=== PATIENT | female | born 1935 | race Caucasian/White ===

== ENCOUNTER 2018-02-20 15:44 | Inpatient (IN) | payer MEDICARE, OTHER ==
[~2018-02-20] VITALS: Ht 162.6 cm; Wt 59.5 kg
[2018-02-20 15:46] VITALS: BP 134/62
[2018-02-20] MEDS ORDERED: Solu-MEDROL 125mg Inj IVP ONE (16:00)
[2018-02-20] MEDS ORDERED: Albuterol ud Inhalation HHN ONE (16:00)
[2018-02-20] MEDS ORDERED: cefTRIAXone 1 GM in NS 55 ML IVPB ONE (16:00)
[2018-02-20] MEDS ORDERED: Nitroglycerin 2% oint pkt TOPIC ONE (16:15)
--- NOTE | 2018-02-20 16:21 | Diagnostic Imaging Report ---
Indication: Dyspnea Comparison: None A single view chest radiograph was obtained. Findings: Vascular prominence demonstrated bilaterally with interstitial densities likely edema. Heart is enlarged. Sternotomy noted and osteopenia noted. Top of IVC filter noted. IMPRESSION: Suspected congestive heart failure.
[2018-02-20 16:49] LABS: ANION GAP 6 mmol/L (5-15); BLOOD UREA NITROGEN 15 mg/dL (7-18); CALCIUM 8.2 MG/DL (8.5-10.1); CARBON DIOXIDE 28 MMOL/L (21-32); CHLORIDE 95 MMOL/L (98-107); CREATININE 0.8 MG/DL (0.55-1.30); SODIUM 129 MMOL/L (136-145)
[2018-02-20] MEDS ORDERED: SERTRALINE HCL25 MG GT (16:51)
[2018-02-20] MEDS ORDERED: FERROUS SU220 MG/53 GT ×2 (16:51→17:56)
[2018-02-20] MEDS ORDERED: COUMADIN1 MG GT (16:51)
[2018-02-20] MEDS ORDERED: MULTIVITAMINS1 EAC2 GT (16:51)
[2018-02-20] MEDS ORDERED: CRESTOR10 M2 GT (16:51)
[2018-02-20] MEDS ORDERED: BISACODYL5 MG RC (16:51)
[2018-02-20] MEDS ORDERED: SENNA8.6 M2 GT ×2 (16:51→17:56)
[2018-02-20] MEDS ORDERED: OMEPRAZOLE40 M1 GT (16:51)
[2018-02-20] MEDS ORDERED: KEPPRA500 M4 GT (16:51)
[2018-02-20] MEDS ORDERED: DOCUSATE SODIU100 MG GT ×2 (16:51→17:56)
[2018-02-20 16:54] LABS: ALANINE AMINOTRANSFERASE 38 U/L (12-78); ALBUMIN 2.9 G/DL (3.4-5.0); ALBUMIN/GLOBULIN RATIO 0.7 (1.0-2.7); ALKALINE PHOSPHATASE 142 U/L (46-116); ASPARTATE AMINO TRANSFERASE 42 U/L (15-37); BILIRUBIN,TOTAL 0.5 MG/DL (0.2-1.0)
[2018-02-20 17:00] VITALS: BP 101/44
[2018-02-20 17:14] LABS: BASOPHILS % (AUTO) 0.2 % (0.0-2.0); HEMATOCRIT 36.1 % (37.0-47.0); HEMOGLOBIN 12.5 G/DL (12.0-16.0); LYMPHOCYTES % (AUTO) 37.9 % (20.0-45.0); MEAN CORPUSCULAR VOLUME 89 FL (80-99); MONOCYTES % (AUTO) 6.8 % (1.0-10.0); PLATELET COUNT 115 K/UL (150-450); RED BLOOD COUNT 4.07 M/UL (4.20-5.40); RED CELL DISTRIBUTION WIDTH 12.7 % (11.6-14.8); WHITE BLOOD COUNT 8.1 K/UL (4.8-10.8)
--- NOTE | 2018-02-20 17:15 | Emergency Room Report ---
History of Present Illness General Chief Complaint: Upper Respiratory Illness Source: Medical Record, EMS Present Illness HPI Patient [facility] in from a [facility] facility for shortness of breath. EMS report that she has had congestion and wheezing. Per EMS evaluation she had wheezing on exam and she was given albuterol nebulizer treatment. The patient is nonverbal at baseline. The patient has a history of seizure disorder. There is no other history available. Allergies: Coded Allergies: No Known Allergies (Unverified , 02/20/18) Patient History Past Medical History: see triage record, HTN, SC, CAD, CHF, COPD, GERD, dementia, seizures Social History: Denies: smoking, alcohol use, drug use Reviewed Nursing Documentation: PMH: Agreed; PSxH: Agreed Nursing Documentation-PMH Past Medical History: No History, Except For Hx Cardiac Problems: Yes - AFIB Review of Systems All Other Systems: limited Physical Exam Vital Signs Date Time Temp Pulse Resp B/P (MAP) Pulse Ox O2 Delivery O2 Flow Rate FiO2 02/20/18 15:36 80 20 134/62 99 T-piece 6.0 02/20/18 16:36 50 Sp02 EP Interpretation: reviewed, normal General Appearance: no apparent distress, alert, GCS 15, non-toxic Head: normocephalic, atraumatic Eyes: bilateral eye normal inspection, bilateral eye PERRL ENT: hearing grossly normal, normal pharynx, no angioedema, normal voice Neck: full range of motion, supple/symm/no masses Respiratory: chest non-tender, wheezing, expiration Cardiovascular #1: regular rate, rhythm, no edema, systolic murmur Gastrointestinal: normal bowel sounds, non tender, soft, non-distended, no guarding, no rebound Rectal: deferred Musculoskeletal: swelling Neurologic: responsive, other - At baseline Psychiatric: mood/affect normal Skin: warm/dry, well hydrated, other - See RN skin exam Medical Decision Making Diagnostic Impression: Primary Impression: CHF (congestive heart failure) Additional Impressions: Fever Pulmonary edema Bronchospasm Hyponatremia Influenza B ER Course The patient presents with shortness of breath. She is also wheezing. Initially on arrival he treated her as a COPD exacerbation with albuterol, steroids and broad-spectrum antibiotics. Chest x-ray showed findings consistent with pulmonary edema. I was concerned that this patient would decompensate, so she was placed on BiPAP. The patient is DO NOT RESUSCITATE but with selective interventions to include noninvasive ventilation. She is also found to have hyponatremia and influenza. She did have a fever. Given the patient's age and chronic medical conditions, this patient's prognosis is very poor. This patient is critically ill. This patient required complex medical decision- making, aggressive intervention, extensive laboratory workup and monitoring. Critical care time: 40 minutes. Laboratory Tests Test 02/20/18 16:00 02/20/18 16:20 Prothrombin Time Pending Prothrombin Time INR Pending PTT Pending Sodium Level 129 MMOL/L (136-145) L Potassium Level 4.0 MMOL/L (3.5-5.1) Chloride Level 95 MMOL/L (98-107) L Carbon Dioxide Level 28 MMOL/L (21-32) Anion Gap 6 mmol/L (5-15) Blood Urea Nitrogen 15 mg/dL (7-18) Creatinine 0.8 MG/DL (0.55-1.30) Estimate Glomerular Filtration Rate mL/min (>60) Glucose Level 116 MG/DL (74-106) H Calcium Level 8.2 MG/DL (8.5-10.1) L Total Bilirubin 0.5 MG/DL (0.2-1.0) Aspartate Amino Transferase (AST) 42 U/L (15-37) H Alanine Aminotransferase (ALT) 38 U/L (12-78) Alkaline Phosphatase 142 U/L (46-116) H Troponin I 0.032 ng/mL (0.000-0.056) Pro-B-Type Natriuretic Peptide 5049 pg/mL (0-125) H Total Protein 7.0 G/DL (6.4-8.2) Albumin 2.9 G/DL (3.4-5.0) L Globulin 4.1 g/dL Albumin/Globulin Ratio 0.7 (1.0-2.7) L White Blood Count 8.1 K/UL (4.8-10.8) Red Blood Count 4.07 M/UL (4.20-5.40) L Hemoglobin 12.5 G/DL (12.0-16.0) Hematocrit 36.1 % (37.0-47.0) L Mean Corpuscular Volume 89 FL (80-99) Mean Corpuscular Hemoglobin 30.6 PG (27.0-31.0) Mean Corpuscular Hemoglobin Concent 34.5 G/DL (32.0-36.0) Red Cell Distribution Width 12.7 % (11.6-14.8) Platelet Count 115 K/UL (150-450) L Mean Platelet Volume 8.8 FL (6.5-10.1) Neutrophils (%) (Auto) 55.0 % (45.0-75.0) Lymphocytes (%) (Auto) 37.9 % (20.0-45.0) Monocytes (%) (Auto) 6.8 % (1.0-10.0) Eosinophils (%) (Auto) 0.0 % (0.0-3.0) Basophils (%) (Auto) 0.2 % (0.0-2.0) Urine Color Yellow Urine Appearance Clear Urine pH 6 (4.5-8.0) Urine Specific [place] 1.020 (1.005-1.035) Urine Protein 3+ (NEGATIVE) H Urine Glucose (UA) Negative (NEGATIVE) Urine Ketones Negative (NEGATIVE) Urine Occult Blood 2+ (NEGATIVE) H Urine Nitrite Negative (NEGATIVE) Urine Bilirubin Negative (NEGATIVE) Urine Urobilinogen 1 MG/DL (0.0-1.0) H Urine Leukocyte Esterase 1+ (NEGATIVE) H Urine RBC 5-10 /HPF (0 - 2) H Urine WBC 2-4 /HPF (0 - 2) Urine Squamous Epithelial Cells Few /LPF (NONE/OCC) Urine Amorphous Sediment Moderate /LPF (NONE) H Urine Bacteria Few /HPF (NONE) Microbiology Date/Time Source Procedure Growth Status 02/20/18 16:15 Nasal Nares Influenza Types A,B Antigen (EMMA) - Final Complete EKG Diagnostic Results Rate: tachycardiac Rhythm: other - S.tach ST Segments: other - NSST Rhythm Strip Diag. Results EP Interpretation: yes Rate: 100's Rhythm: NSR, no PVC's, no ectopy Chest X-Ray Diagnostic Results Chest X-Ray Diagnostic Results : Chest X-Ray Ordered: Yes # of Views/Limited/Complete: 1 View Indication: Shortness of Breath EP Interpretation: Yes Interpretation: other - Diffuse patchy opacities. Last Vital Signs Date Time Temp Pulse Resp B/P (MAP) Pulse Ox O2 Delivery O2 Flow Rate FiO2 02/20/18 17:02 134/62 02/20/18 16:43 15.0 50 02/20/18 16:36 113 20 100 Facial Disposition: ADMITTED INPATIENT Condition: Critical KYA BLACKWELL D.O. February 20, 2018 17:15
[2018-02-20 17:19] LABS: APPEARANCE,URINE CLEAR; BILIRUBIN, URINE NEGATIVE (NEGATIVE); GLUCOSE, URINE (UA) NEGATIVE (NEGATIVE); KETONES,URINE NEGATIVE (NEGATIVE); LEUKOCYTE ESTERASE ,URINE 1+ (NEGATIVE); NITRITE,URINE NEGATIVE (NEGATIVE); PH,URINE 6 (4.5-8.0); PROTEIN,URINE 3+ (NEGATIVE); UROBILINOGEN,URINE 1 MG/DL (0.0-1.0)
[2018-02-20 17:22] LABS: COLOR,URINE YELLOW
[2018-02-20] MEDS ORDERED: MULTIVITAMINS1 EAC8 ORAL (17:49)
[2018-02-20] MEDS ORDERED: MULTIVITAMINS1 EAC8 GT (17:50)
[2018-02-20] MEDS ORDERED: CULTURELLE1 EACH GT (17:56)
[2018-02-20] MEDS ORDERED: LEVETIRACE100 MG/1 M GT ×2 (17:59)
[2018-02-20] MEDS ORDERED: ARTIFICIAL TEAR15 ML BOTH EYES (18:04)
[2018-02-20] MEDS ORDERED: NORCO 5-325 TA1 EACH GT (18:04)
[2018-02-20] MEDS ORDERED: GUAIFENESI100 MG/5 M GT (18:04)
[2018-02-20] MEDS ORDERED: DULCOLAX10 MG RC (18:04)
[2018-02-20 18:43] VITALS: BP 101/49
--- NOTE | 2018-02-20 19:27 | Pulmonolgy Critical Care Note ---
Critical Care - Asmt/Plan Problems: (1) Gastrostomy tube in place (2) CVA (cerebral vascular accident) (3) Atrial fibrillation (4) Acute decompensated heart failure (5) Bronchospasm (6) Influenza B (7) Respiratory failure (8) Protein calorie malnutrition (9) Hyponatremia (10) UTI (urinary tract infection) Assessment/Plan: -ABG -Optimize pulmonary hygiene/mobilize as tolerated -PRN BiPAP, attempt to wean off -Titrate down FiO2 to keep SaO2 > 90% -RTC and PRN HHN's -Zosyn (D1), Tamiflu (D1) -F/U Cx's -Monitor volumes -Diuresis as able -F/U TTE -Hold TF's -Continue A/C -DNAR/DNI, BiPAP ok Respiratory: monitor respiratory rate, adjust FIO2, ABG, other - Continue BiPAP , attempt to wean off, RTC and PRN HHN's, optimize pulmonary hygiene/mobilzie as toelrated Cardiac: continue to monitor HR/BP, other - TTE, diurese as able Renal: F/U I&O, check electrolytes, other - Diurese as able Infectious Disease: continue antibiotics - expand to Zosyn, continue Tamiflue Gastrointestinal: hold feedings Endocrine: monitor blood sugar Hematologic: monitor H/H Neurologic: keep patient comfortable Prophylaxis: Protonix, other - Coumading Disposition: keep in ICU - TOMMY Time Spent (Minutes): 60 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, 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 Discussed with: consultants, other - DNAR/DNI Critical Care - Objective Last 24 Hour Vital Signs Date Time Temp Pulse Resp B/P (MAP) Pulse Ox O2 Delivery O2 Flow Rate FiO2 02/20/18 18:43 100.9 102 18 101/49 100 Bi-pap 15.0 50 100.9 02/20/18 17:02 134/62 02/20/18 17:00 100.2 109 28 101/44 100 Bi-pap 15.0 50 100.2 02/20/18 16:43 15.0 50 02/20/18 16:36 113 20 100 Facial 50 02/20/18 16:24 109 24 100 Nasal Cannula 4.0 02/20/18 16:12 99 19 100 Simple Mask 6.0 02/20/18 16:10 99 19 Simple Mask 6.0 02/20/18 15:46 20 134/62 99 Simple Mask 6.0 02/20/18 15:46 80 20 Simple Mask 6.0 02/20/18 15:36 80 20 134/62 99 T-piece 6.0 Status: obtunded, other - on BiPAP Condition: critical HEENT: atraumatic, normocephalic Lungs: rales - BiB, rhonchi - scattered Heart: HR/BP stable Abdomen: soft, non-tender, active bowel sounds, feeding tube Extremities: edema - 1+, cyanosis - no, clubbing - no Micro: Microbiology Date/Time Source Procedure Growth Status 02/20/18 16:15 Nasal Nares Influenza Types A,B Antigen (EMMA) - Final Complete Critical Care - Subjective ROS Limited/Unobtainable: Yes ICU Day: 1 Intubation Day: N/A on BiPAP Interval Events: 82 F NHR h/o CVA, AF on coumadin, dysphagia S/P GT, Sz DO Tx'd from SNF with respiratory failure, progressive hypoxemic, now on 15L NRBFM, wheezing, SOB, + FLU B, + cough She recieved Tamifly and CTx in the ER. Condition: critical IV Access: peripheral EKG Rhythm: Atrial Fibrillation FI02: 50 Vent Support Mode: BiLevel Sputum Amount: None Subjective: GRACIE CXR: Scattered b opacities and PVC Labs: Laboratory Tests Test 02/20/18 16:00 02/20/18 16:20 Prothrombin Time Pending Prothromb Time International Ratio Pending Activated Partial Thromboplast Time Pending Sodium Level 129 MMOL/L (136-145) L Potassium Level 4.0 MMOL/L (3.5-5.1) Chloride Level 95 MMOL/L (98-107) L Carbon Dioxide Level 28 MMOL/L (21-32) Anion Gap 6 mmol/L (5-15) Blood Urea Nitrogen 15 mg/dL (7-18) Creatinine 0.8 MG/DL (0.55-1.30) Estimat Glomerular Filtration Rate mL/min (>60) Glucose Level 116 MG/DL (74-106) H Calcium Level 8.2 MG/DL (8.5-10.1) L Total Bilirubin 0.5 MG/DL (0.2-1.0) Aspartate Amino Transf (AST/SGOT) 42 U/L (15-37) H Alanine Aminotransferase (ALT/SGPT) 38 U/L (12-78) Alkaline Phosphatase 142 U/L (46-116) H Troponin I Pending Pro-B-Type Natriuretic Peptide 5049 pg/mL (0-125) H Total Protein 7.0 G/DL (6.4-8.2) Albumin 2.9 G/DL (3.4-5.0) L Globulin 4.1 g/dL Albumin/Globulin Ratio 0.7 (1.0-2.7) L White Blood Count 8.1 K/UL (4.8-10.8) Red Blood Count 4.07 M/UL (4.20-5.40) L Hemoglobin 12.5 G/DL (12.0-16.0) Hematocrit 36.1 % (37.0-47.0) L Mean Corpuscular Volume 89 FL (80-99) Mean Corpuscular Hemoglobin 30.6 PG (27.0-31.0) Mean Corpuscular Hemoglobin Concent 34.5 G/DL (32.0-36.0) Red Cell Distribution Width 12.7 % (11.6-14.8) Platelet Count 115 K/UL (150-450) L Mean Platelet Volume 8.8 FL (6.5-10.1) Neutrophils (%) (Auto) 55.0 % (45.0-75.0) Lymphocytes (%) (Auto) 37.9 % (20.0-45.0) Monocytes (%) (Auto) 6.8 % (1.0-10.0) Eosinophils (%) (Auto) 0.0 % (0.0-3.0) Basophils (%) (Auto) 0.2 % (0.0-2.0) Urine Color Yellow Urine Appearance Clear Urine pH 6 (4.5-8.0) Urine Specific [place] 1.020 (1.005-1.035) Urine Protein 3+ (NEGATIVE) H Urine Glucose (UA) Negative (NEGATIVE) Urine Ketones Negative (NEGATIVE) Urine Occult Blood 2+ (NEGATIVE) H Urine Nitrite Negative (NEGATIVE) Urine Bilirubin Negative (NEGATIVE) Urine Urobilinogen 1 MG/DL (0.0-1.0) H Urine Leukocyte Esterase 1+ (NEGATIVE) H Urine RBC 5-10 /HPF (0 - 2) H Urine WBC 2-4 /HPF (0 - 2) Urine Squamous Epithelial Cells Few /LPF (NONE/OCC) Urine Amorphous Sediment Moderate /LPF (NONE) H Urine Bacteria Few /HPF (NONE) NAEEM HUNTLEY M.D. February 20, 2018 19:26
[2018-02-20 20:02] LABS: INR 2.3 (0.9-1.1)
[2018-02-20] MEDS ORDERED: Albuterol/Ipratropium 3ml neb HHN PRN (20:30)
[2018-02-20 20:50] VITALS: BP 105/59
[2018-02-20 20:51] VITALS: BP 104/69
[2018-02-20] MEDS ORDERED: Norco 5mg/325mg tab GT PRN (22:45)
[2018-02-20] MEDS ORDERED: guaiFENesin 100mg/5ml Liq ud GT PRN (22:45)
[2018-02-20] MEDS ORDERED: Artificial Tears 1.4% Op Soln BOTH EYES PRN (22:45)
[2018-02-20] MEDS: Oseltamivir 75mg cap ORAL SCH (22:53)
[2018-02-20] MEDS: Piperacillin/Tazobactam 3.375 GM in NS 110 ML IVPB SCH (22:54)
[2018-02-21] VITALS: BP 119/47
--- NOTE | 2018-02-21 00:15 | History and Physical Report ---
DATE OF ADMISSION: 02/20/2018 HISTORY OF PRESENT ILLNESS: The patient is an unfortunate 82-year-old female with history of CVA, history of atrial fibrillation, history of dysphagia for which she has a G-tube. The patient resides at [facility]. The patient was sent into the emergency room for evaluation secondary to increased shortness of breath, congestion, and cough. She also developed some low-grade fevers at the emergency room. 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 MEDICATIONS: Please see reconciled med list. ALLERGIES: None. SOCIAL HISTORY: She does not smoke. Does not drink any alcohol. She . FAMILY HISTORY: Noncontributory. REVIEW OF SYSTEMS: Twelve point review of systems reviewed and negative except for above. PHYSICAL EXAMINATION: GENERAL: She is elderly, lying in bed, congested. VITAL SIGNS: Reveal a blood pressure 101/49, respirations 18, pulse 102, temperature 100.9 degrees, she is on BiPAP 15 liters, pulse ox 100%, FiO2 of 50. HEENT: Head is normocephalic and atraumatic. Pupils reactive to light. Extraocular muscles intact. NECK: Supple. She does have some JVP. Some accessary muscle use. LUNGS: She does have crackles at the bases. HEART: Tachy. S1 and S2. Mechanical sounds. ABDOMEN: Soft. She does have G-tube. No sign of infection. EXTREMITIES: No clubbing or cyanosis. Trace edema. She is somewhat contracted. LABORATORY DATA: Revealed a white count of 8.1, hemoglobin 12.5, hematocrit 36.1, platelet count 115. Sodium was 149, potassium 4.0, BUN 15, creatinine 0.8. BNP is 5049. Troponin 0.032. Her influenza B came back positive. A chest x-ray reveals suspected congestive heart failure. ASSESSMENT AND PLAN: The patient is an unfortunate 82-year-old female presents with increasing congestion and shortness of breath, elevated BNP. Also findings consistent with H.flu B positive. The patient is on BiPAP. Her notes from the long-term, DNR. The patient will be admitted to a monitored bed. She will be continued on BiPAP, will be diuresed. She will be treated with antibiotics as well as Tamiflu. We will await culture results. I have asked Dr. Galvez from Pulmonary as well as Dr. Garcia from Infectious Disease to see the patient. I have also notified Dr. Fowler to see for Cardiology. We will continue her on Coumadin per pharmacy protocol. Darrion Obrien M.D. DR: Torrey JOB#: [id number] CC:
[2018-02-21] MEDS: Albuterol/Ipratropium 3ml neb HHN SCH ×4 (01:46→19:57)
[2018-02-21 04:00] VITALS: BP 102/54
[2018-02-21 04:44] LABS: HEMATOCRIT 30.7 % (37.0-47.0); HEMOGLOBIN 10.5 G/DL (12.0-16.0); MEAN CORPUSCULAR VOLUME 89 FL (80-99); PLATELET COUNT 112 K/UL (150-450); RED BLOOD COUNT 3.44 M/UL (4.20-5.40); RED CELL DISTRIBUTION WIDTH 12.2 % (11.6-14.8); WHITE BLOOD COUNT 3.9 K/UL (4.8-10.8)
[2018-02-21 05:17] LABS: ALANINE AMINOTRANSFERASE 27 U/L (12-78); ALBUMIN 2.5 G/DL (3.4-5.0); ALBUMIN/GLOBULIN RATIO 0.7 (1.0-2.7); ALKALINE PHOSPHATASE 122 U/L (46-116); ANION GAP 6 mmol/L (5-15); ASPARTATE AMINO TRANSFERASE 30 U/L (15-37); BILIRUBIN,TOTAL 0.5 MG/DL (0.2-1.0); BLOOD UREA NITROGEN 17 mg/dL (7-18); CALCIUM 8.4 MG/DL (8.5-10.1); CARBON DIOXIDE 31 MMOL/L (21-32); CHLORIDE 97 MMOL/L (98-107); POTASSIUM 3.6 MMOL/L (3.5-5.1); SODIUM 134 MMOL/L (136-145)
[2018-02-21] MEDS: Piperacillin/Tazobactam 3.375 GM in NS 110 ML IVPB SCH ×3 (06:01→21:28)
[2018-02-21 08:00] VITALS: BP 109/56
[2018-02-21] MEDS ORDERED: Sertraline 50mg tab GT SCH (09:00)
[2018-02-21] MEDS: Oseltamivir 75mg cap ORAL SCH ×2 (10:01→21:28)
[2018-02-21] MEDS: Lactobacillus-GG tablet GT SCH ×2 (10:01→18:21)
[2018-02-21] MEDS: Multivitamins W/Minerals 15 ML UDC GT SCH (10:01)
[2018-02-21] MEDS: levETIRAcetam 500mg/5ml Liquid GT SCH (10:02)
--- NOTE | 2018-02-21 10:10 | Pulmonolgy Critical Care Note ---
Critical Care - Asmt/Plan Problems: (1) Gastrostomy tube in place (2) CVA (cerebral vascular accident) (3) Atrial fibrillation (4) Acute decompensated heart failure (5) Bronchospasm (6) Influenza B (7) Respiratory failure (8) Protein calorie malnutrition (9) Hyponatremia (10) UTI (urinary tract infection) Assessment/Plan: -Optimize pulmonary hygiene/mobilize as tolerated -Wean off BiPAP -Titrate down FiO2 to keep SaO2 > 90% -RTC and PRN HHN's -Zosyn (D2), Tamiflu (D2) -ID eval pending -F/U Cx's -Monitor volumes -Diuresis as able -F/U TTE & cards eval -Can resume TF's later today if stable off BiPAP -Continue A/C -DNAR/DNI, BiPAP ok Respiratory: monitor respiratory rate, other - wean off BiPAP, RTC and PRN HHN' s, pulmonary hygiene/mobilize Cardiac: continue to monitor HR/BP, other - F/u TTE and cards eval Renal: F/U I&O, check electrolytes, other - diuresis as tolerated Infectious Disease: check cultures, continue antibiotics Gastrointestinal: start feedings - later today if stable off BiPAP Endocrine: monitor blood sugar Hematologic: monitor H/H Neurologic: keep patient comfortable Prophylaxis: other - coumadin Disposition: keep in ICU - TOMMY Time Spent (Minutes): 40 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 Discussed 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: nurses Critical Care - Objective Last 24 Hour Vital Signs Date Time Temp Pulse Resp B/P (MAP) Pulse Ox O2 Delivery O2 Flow Rate FiO2 02/21/18 08:53 66 20 96 35 02/21/18 08:38 78 19 98 Facial 35 02/21/18 08:00 97.7 75 21 109/56 100 Bi-pap 15.0 50 97.7 02/21/18 07:19 79 20 99 Bi-pap 40 02/21/18 07:03 75 18 98 Facial 40 02/21/18 07:02 75 18 98 Bi-pap 40 02/21/18 05:23 73 18 98 Facial 40 02/21/18 04:00 69 02/21/18 04:00 50 02/21/18 04:00 98.4 69 17 102/54 98 Bi-pap 15.0 50 98.4 02/21/18 02:56 74 18 98 Facial 40 02/21/18 01:50 78 20 99 Bi-pap 45 02/21/18 01:44 79 18 98 Bi-pap 45 02/21/18 01:18 79 21 97 Facial 45 02/21/18 00:06 73 02/21/18 00:00 98.8 79 18 119/47 98 Bi-pap 15.0 50 98.8 02/21/18 00:00 45 02/20/18 23:00 77 18 98 Facial 50 02/20/18 21:28 97 19 99 Facial 50 02/20/18 21:15 100.9 99 18 105/59 100 15.0 50 02/20/18 21:00 45 02/20/18 20:51 99.5 100 20 104/69 96 Bi-pap 15.0 50 99.5 02/20/18 20:50 99 18 105/59 100 15.0 50 02/20/18 19:06 101 20 100 Facial 50 02/20/18 18:43 100.9 102 18 101/49 100 Bi-pap 15.0 50 100.9 02/20/18 17:02 134/62 02/20/18 17:00 100.2 109 28 101/44 100 Bi-pap 15.0 50 100.2 02/20/18 16:43 15.0 50 02/20/18 16:36 113 20 100 Facial 50 02/20/18 16:24 109 24 100 Nasal Cannula 4.0 02/20/18 16:12 99 19 100 Simple Mask 6.0 02/20/18 16:10 99 19 Simple Mask 6.0 02/20/18 15:46 20 134/62 99 Simple Mask 6.0 02/20/18 15:46 80 20 Simple Mask 6.0 02/20/18 15:36 80 20 134/62 99 T-piece 6.0 Status: obtunded Condition: improving HEENT: atraumatic, normocephalic Lungs: rhonchi - scattered with BiB rales Heart: HR/BP stable Abdomen: soft, non-tender, active bowel sounds, feeding tube Extremities: edema - trace Micro: Microbiology Date/Time Source Procedure Growth Status 02/20/18 16:15 Nasal Nares Influenza Types A,B Antigen (EMMA) - Final Complete Blood Sugars: BS controlled Critical Care - Subjective ROS Limited/Unobtainable: Yes ICU Day: 2 (TOMMY) Intubation Day: BiPAP D2 Interval Events: Remains on BiPAP, FiO2 35%,no distress Condition: improving IV Access: peripheral EKG Rhythm: Sinus Rhythm FI02: 35 Vent Support Mode: BiLevel Sputum Amount: None I&O: Intake and Output 02/20/18 02/21/18 19:00 07:00 Intake Total 55 ml 110 ml Output Total 200 ml Balance 55 ml -90 ml Intake IV Total 55 ml 110 ml Output Urine Total 200 ml Subjective: GRACIE Labs: Laboratory Tests Test 02/20/18 16:00 02/20/18 16:20 02/20/18 20:21 02/21/18 03:50 Prothrombin Time 23.5 SEC (9.30-11.50) H Prothromb Time International Ratio 2.3 (0.9-1.1) H Activated Partial Thromboplast Time 46 SEC (23-33) H Sodium Level 129 MMOL/L (136-145) L 134 MMOL/L (136-145) L Potassium Level 4.0 MMOL/L (3.5-5.1) 3.6 MMOL/L (3.5-5.1) Chloride Level 95 MMOL/L (98-107) L 97 MMOL/L (98-107) L Carbon Dioxide Level 28 MMOL/L (21-32) 31 MMOL/L (21-32) Anion Gap 6 mmol/L (5-15) 6 mmol/L (5-15) Blood Urea Nitrogen 15 mg/dL (7-18) 17 mg/dL (7-18) Creatinine 0.8 MG/DL (0.55-1.30) 1.0 MG/DL (0.55-1.30) Estimat Glomerular Filtration Rate mL/min (>60) mL/min (>60) Glucose Level 116 MG/DL (74-106) H 156 MG/DL (74-106) H Calcium Level 8.2 MG/DL (8.5-10.1) L 8.4 MG/DL (8.5-10.1) L Total Bilirubin 0.5 MG/DL (0.2-1.0) 0.5 MG/DL (0.2-1.0) Aspartate Amino Transf (AST/SGOT) 42 U/L (15-37) H 30 U/L (15-37) Alanine Aminotransferase (ALT/SGPT) 38 U/L (12-78) 27 U/L (12-78) Alkaline Phosphatase 142 U/L (46-116) H 122 U/L (46-116) H Troponin I 0.032 ng/mL (0.000-0.056) Pro-B-Type Natriuretic Peptide 5049 pg/mL (0-125) H Total Protein 7.0 G/DL (6.4-8.2) 6.3 G/DL (6.4-8.2) L Albumin 2.9 G/DL (3.4-5.0) L 2.5 G/DL (3.4-5.0) L Globulin 4.1 g/dL 3.8 g/dL Albumin/Globulin Ratio 0.7 (1.0-2.7) L 0.7 (1.0-2.7) L White Blood Count 8.1 K/UL (4.8-10.8) 3.9 K/UL (4.8-10.8) #L Red Blood Count 4.07 M/UL (4.20-5.40) L 3.44 M/UL (4.20-5.40) L Hemoglobin 12.5 G/DL (12.0-16.0) 10.5 G/DL (12.0-16.0) L Hematocrit 36.1 % (37.0-47.0) L 30.7 % (37.0-47.0) L Mean Corpuscular Volume 89 FL (80-99) 89 FL (80-99) Mean Corpuscular Hemoglobin 30.6 PG (27.0-31.0) 30.5 PG (27.0-31.0) Mean Corpuscular Hemoglobin Concent 34.5 G/DL (32.0-36.0) 34.2 G/DL (32.0-36.0) Red Cell Distribution Width 12.7 % (11.6-14.8) 12.2 % (11.6-14.8) Platelet Count 115 K/UL (150-450) L 112 K/UL (150-450) L Mean Platelet Volume 8.8 FL (6.5-10.1) 9.4 FL (6.5-10.1) Neutrophils (%) (Auto) 55.0 % (45.0-75.0) % (45.0-75.0) Lymphocytes (%) (Auto) 37.9 % (20.0-45.0) % (20.0-45.0) Monocytes (%) (Auto) 6.8 % (1.0-10.0) % (1.0-10.0) Eosinophils (%) (Auto) 0.0 % (0.0-3.0) % (0.0-3.0) Basophils (%) (Auto) 0.2 % (0.0-2.0) % (0.0-2.0) Urine Color Yellow Urine Appearance Clear Urine pH 6 (4.5-8.0) Urine Specific [place] 1.020 (1.005-1.035) Urine Protein 3+ (NEGATIVE) H Urine Glucose (UA) Negative (NEGATIVE) Urine Ketones Negative (NEGATIVE) Urine Occult Blood 2+ (NEGATIVE) H Urine Nitrite Negative (NEGATIVE) Urine Bilirubin Negative (NEGATIVE) Urine Urobilinogen 1 MG/DL (0.0-1.0) H Urine Leukocyte Esterase 1+ (NEGATIVE) H Urine RBC 5-10 /HPF (0 - 2) H Urine WBC 2-4 /HPF (0 - 2) Urine Squamous Epithelial Cells Few /LPF (NONE/OCC) Urine Amorphous Sediment Moderate /LPF (NONE) H Urine Bacteria Few /HPF (NONE) Arterial Blood pH 7.441 (7.350-7.450) Arterial Blood Partial Pressure CO2 43.0 mmHg (35.0-45.0) Arterial Blood Partial Pressure O2 165.4 mmHg (75.0-100.0) H Arterial Blood HCO3 28.6 mmol/L (22.0-26.0) H Arterial Blood Oxygen Saturation 98.6 % (92.0-98.0) H Arterial Blood Base Excess 4.0 Vicente Test Positive Differential Total Cells Counted 100 Neutrophils % (Manual) 90 % (45-75) H Lymphocytes % (Manual) 7 % (20-45) L Monocytes % (Manual) 3 % (1-10) Eosinophils % (Manual) 0 % (0-3) Basophils % (Manual) 0 % (0-2) Band Neutrophils 0 % (0-8) Platelet Estimate Decreased L Platelet Morphology Normal Hypochromasia 1+ Anisocytosis 1+ NAEEM HUNTLEY M.D. February 21, 2018 10:10
[2018-02-21 11:53] VITALS: BP 123/58
[2018-02-21] MEDS ORDERED: Vancomycin 1250mg/D5W 250ml IVPB ONE ×2 (14:00→18:00)
--- NOTE | 2018-02-21 15:45 | Consultation ---
DATE OF CONSULTATION: 02/21/2018 INFECTIOUS DISEASE CONSULTATION This consult is for coverage of Dr. Garcia. ATTENDING PHYSICIAN: Darrion Obrien M.D. REASON FOR CONSULT: Pneumonia and influenza B. HISTORY OF PRESENT ILLNESS: This 82-year-old female that is a long term resident admitted yesterday because of shortness of breath, congestion, wheezing, had a fever of 100.9. In the ER, had congestion in chest, had a positive test for influenza B. The patient is not a source of history. PAST MEDICAL HISTORY: Significant for hypertension, coronary artery disease, history of RI, COPD, advanced dementia, history of CVA in right middle cerebral artery, aortic stenosis, history of atrial fibrillation. The patient is status post G-tube placement. ALLERGIES: No known drug allergy. MEDICATIONS: Keppra, Senokot, Lipitor, lactobacillus, Zoloft, , albuterol, ipratropium inhaler, bisacodyl, artificial tears, [place], warfarin, Zosyn, Tamiflu and Lasix. SOCIAL HISTORY: [facility] resident. No history of alcohol, drug abuse, or smoking. CODE STATUS: DNR/DNI. REVIEW OF SYSTEMS: Unobtainable, but has shortness of breath and was on BiPAP that was just changed to oxygen mask. PHYSICAL EXAMINATION: VITAL SIGNS: Temperature 97.7, pulse 66, blood pressure 109/56. GENERAL APPEARANCE: Non-communicative. HEAD AND NECK: Getting O2 by nasal cannula. HEART: Normal rate. LUNGS: Has bilateral rhonchi. ABDOMEN: Soft. G-tube in place. EXTREMITY: No edema. LABORATORY AND DIAGNOSTIC DATA: WBC 3.9, hemoglobin 10.5, hematocrit 30.7, platelet 112,000. Sodium 134, potassium 3.6, chloride 97, bicarbonate 31, BUN 17, creatinine 1. Influenza A and B test was positive for influenza B. Chest x-ray showed congestive heart failure. IMPRESSION: Pneumonia with influenza B, cannot rule out additional bacterial pneumonia. The patient has advanced dementia, status post G-tube, has history of atrial fibrillation and aortic stenosis, hypertension. RECOMMENDATION: We will continue with current treatment regimen with Tamiflu and Zosyn. We will follow up the cultures. At the end of my exam, I thank Dr. Obrien, for involving me in the care of this patient. Torey Ramirez M.D. DR: KIM JOB#: [id number] CC:
[2018-02-21 16:00] VITALS: BP_SYST 135; BP_SYST 145; BP_DIAS 58; BP_DIAS 71
--- NOTE | 2018-02-21 16:14 | Cardiology Report ---
APPROVED REPORT EXAM: Two-dimensional and M-mode echocardiogram with Doppler and color Doppler. INDICATION Acute myocard infarction M-Mode DIMENSIONS IVSd1.1 (0.7-1.1cm)Left Atrium (MM)4.5 (1.6-4.0cm) LVDd4.8 (3.5-5.6cm)Aortic Root2.7 (2.0-3.7cm) PWd1.1 (0.7-1.1cm)Aortic Cusp Exc.1.1 (1.5-2.0cm) IVSs1.1 cm LVDs3.1 (2.5-4.0cm) PWs1.6 cm Technically difficult study due to poor acoustical windows. Normal left ventricular chamber size, , mild global hypokinesis Left ventricular ejection fraction estimated to be 40-45%. No evidence of left ventricular hypertrophy. No evidence of pericardial or pleural effusion. Mild bi-atrial enlargement by 2D. Focal aortic valve sclerosis with adequate cusp excursion. 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 Mild mitral annulus and aortic root calcification. Pulmonic valve not well visualized. Normal tricuspid valve structure. IVC is normal in size minimal collapse with respiration indicate increased RA pressure. A color flow and spectral Doppler study was performed and revealed: Mild aortic regurgitation. Peak aortic valve gradient of 35 mmHg and a mean of 14 mmHg. Aortic valve area 1.6cm2 calculated by continuity equation. Trace mitral regurgitation. Mitral P1/2 time of 56 m/s is compatible with a mitral valve area of 3.9 cm2 Peak mitral valve diastolic gradient of 15 mmHg and a mean gradient of 4 mmHg Moderate tricuspid regurgitation. Tricuspid systolic velocities suggests peak right ventricular systolic pressure of 48 mmHg Consistent with mild pulmonary hypertension.
[2018-02-21 16:48] LABS: INR 3.8 (0.9-1.1)
[2018-02-21 20:00] VITALS: BP 100/54
[2018-02-21] MEDS ORDERED: Sennosides 8.6mg GT SCH ×2 (21:00→21:17)
[2018-02-21] MEDS ORDERED: levETIRAcetam 500mg/5ml Liquid GT SCH (21:00)
[2018-02-21] MEDS ORDERED: Atorvastatin 20mg tab GT SCH (21:00)
--- NOTE | 2018-02-21 22:29 | General Progress Note ---
Assessment/Plan Assessment/Plan chf influenza b fevers afib artificial valve diuresis on bipap pulmonary eval appreciated pulmonary hygiene on tamiflu on abx cards eval from Dr Fowler Subjective Allergies: Coded Allergies: No Known Allergies (Unverified , 02/20/18) Subjective seen in am on bipap, more alert Objective Last 24 Hour Vital Signs Date Time Temp Pulse Resp B/P (MAP) Pulse Ox O2 Delivery O2 Flow Rate FiO2 02/21/18 20:15 80 20 98 Nasal Cannula 3.0 32 02/21/18 20:00 78 22 97 Nasal Cannula 3.0 32 02/21/18 19:59 Nasal Cannula 3.0 32 02/21/18 19:58 97 Nasal Cannula 3.0 32 02/21/18 16:00 97.6 80 20 135/58 100 Venturi Mask 6.0 35 97.6 02/21/18 16:00 84 02/21/18 16:00 6.0 35 02/21/18 12:52 68 19 99 Venturi Mask 28 02/21/18 12:44 Venturi Mask 30 02/21/18 12:44 98 Venturi Mask 30 02/21/18 12:42 64 21 98 Venturi Mask 30 02/21/18 12:00 6.0 35 02/21/18 12:00 58 02/21/18 11:53 97.5 71 21 123/58 100 Venturi Mask 6.0 35 97.5 02/21/18 10:43 68 19 98 30 02/21/18 10:00 6.0 35 02/21/18 08:53 66 20 96 35 02/21/18 08:38 78 19 98 Facial 35 02/21/18 08:00 50 02/21/18 08:00 64 02/21/18 08:00 97.7 75 21 109/56 100 Bi-pap 15.0 50 97.7 02/21/18 07:19 79 20 99 Bi-pap 40 02/21/18 07:03 75 18 98 Facial 40 02/21/18 07:02 75 18 98 Bi-pap 40 02/21/18 05:23 73 18 98 Facial 40 02/21/18 04:00 69 02/21/18 04:00 50 02/21/18 04:00 98.4 69 17 102/54 98 Bi-pap 15.0 50 98.4 02/21/18 02:56 74 18 98 Facial 40 02/21/18 01:50 78 20 99 Bi-pap 45 02/21/18 01:44 79 18 98 Bi-pap 45 02/21/18 01:18 79 21 97 Facial 45 02/21/18 00:06 73 02/21/18 00:00 98.8 79 18 119/47 98 Bi-pap 15.0 50 98.8 02/21/18 00:00 45 02/20/18 23:00 77 18 98 Facial 50 Intake and Output 02/20/18 02/21/18 19:00 07:00 Intake Total 55 ml 137.5 ml Output Total 200 ml Balance 55 ml -62.5 ml IV Total 55 ml 137.5 ml Output Urine Total 200 ml Laboratory Tests 02/21/18 03:50: White Blood Count 3.9#L, Red Blood Count 3.44L, Hemoglobin 10.5L, Hematocrit 30.7L, Mean Corpuscular Volume 89, Mean Corpuscular Hemoglobin 30.5, Mean Corpuscular Hemoglobin Concent 34.2, Red Cell Distribution Width 12.2, Platelet Count 112L, Mean Platelet Volume 9.4, Neutrophils (%) (Auto) , Lymphocytes (%) ( Auto) , Monocytes (%) (Auto) , Eosinophils (%) (Auto) , Basophils (%) (Auto) , Differential Total Cells Counted 100, Neutrophils % (Manual) 90H, Lymphocytes % (Manual) 7L, Monocytes % (Manual) 3, Eosinophils % (Manual) 0, Basophils % ( Manual) 0, Band Neutrophils 0, Platelet Estimate DecreasedL, Platelet Morphology Normal, Hypochromasia 1+, Anisocytosis 1+, Sodium Level 134L, Potassium Level 3.6, Chloride Level 97L, Carbon Dioxide Level 31, Anion Gap 6, Blood Urea Nitrogen 17, Creatinine 1.0, Estimat Glomerular Filtration Rate , Glucose Level 156H, Calcium Level 8.4L, Total Bilirubin 0.5, Aspartate Amino Transf (AST/SGOT) 30, Alanine Aminotransferase (ALT/SGPT) 27, Alkaline Phosphatase 122H, Total Protein 6.3L, Albumin 2.5L, Globulin 3.8, Albumin/ Globulin Ratio 0.7L 02/21/18 15:47: Prothrombin Time 38.8H, Prothromb Time International Ratio 3.8H Height (Feet): 5 Height (Inches): 4.00 Weight (Pounds): 131 General Appearance: WD/WN Neck: supple Cardiovascular: irregularly irregular Respiratory/Chest: rhonchi - bilaterally Abdomen: soft Objective pos gtube contected le 1 plus edema hemiparesis Darrion Obrien MD February 21, 2018 22:29
[2018-02-22] VITALS: BP 126/71
[2018-02-22] MEDS: Albuterol/Ipratropium 3ml neb HHN SCH ×4 (00:35→18:56)
[2018-02-22 04:00] VITALS: BP 111/59
[2018-02-22 04:45] LABS: BASOPHILS % (AUTO) 0.1 % (0.0-2.0); HEMATOCRIT 30.6 % (37.0-47.0); HEMOGLOBIN 10.4 G/DL (12.0-16.0); LYMPHOCYTES % (AUTO) 7.6 % (20.0-45.0); MEAN CORPUSCULAR VOLUME 89 FL (80-99); NEUTROPHILS % (AUTO) 82.3 % (45.0-75.0); PLATELET COUNT 124 K/UL (150-450); RED BLOOD COUNT 3.43 M/UL (4.20-5.40); RED CELL DISTRIBUTION WIDTH 12.6 % (11.6-14.8); WHITE BLOOD COUNT 5.1 K/UL (4.8-10.8)
[2018-02-22 04:53] LABS: ALANINE AMINOTRANSFERASE 35 U/L (12-78); ALBUMIN 2.6 G/DL (3.4-5.0); ALBUMIN/GLOBULIN RATIO 0.7 (1.0-2.7); ALKALINE PHOSPHATASE 124 U/L (46-116); ANION GAP 8 mmol/L (5-15); ASPARTATE AMINO TRANSFERASE 37 U/L (15-37); BILIRUBIN,TOTAL 0.5 MG/DL (0.2-1.0); BLOOD UREA NITROGEN 23 mg/dL (7-18); CALCIUM 8.2 MG/DL (8.5-10.1); CARBON DIOXIDE 32 MMOL/L (21-32); CHLORIDE 98 MMOL/L (98-107); CREATININE 1.1 MG/DL (0.55-1.30); SODIUM 137 MMOL/L (136-145)
[2018-02-22 05:22] LABS: POTASSIUM 2.5 MMOL/L (3.5-5.1)
[2018-02-22] MEDS: Piperacillin/Tazobactam 3.375 GM in NS 110 ML IVPB SCH ×3 (06:23→22:44)
[2018-02-22 08:00] VITALS: BP 103/56
[2018-02-22] MEDS: levETIRAcetam 500mg/5ml Liquid GT SCH ×2 (08:38→22:42)
[2018-02-22] MEDS: Multivitamins W/Minerals 15 ML UDC GT SCH (08:38)
[2018-02-22] MEDS: Lactobacillus-GG tablet GT SCH ×2 (08:39→18:26)
--- NOTE | 2018-02-22 08:40 | Pulmonolgy Critical Care Note ---
Critical Care - Asmt/Plan Problems: (1) Gastrostomy tube in place (2) CVA (cerebral vascular accident) (3) Atrial fibrillation (4) Acute decompensated heart failure (5) Bronchospasm (6) Influenza B (7) Respiratory failure (8) Staphylococcus aureus bacteremia (9) Protein calorie malnutrition (10) Hyponatremia (11) UTI (urinary tract infection) Assessment/Plan: -Optimize pulmonary hygiene/mobilize as tolerated -Wean off BiPAP -Titrate down FiO2 to keep SaO2 > 90% -RTC and PRN HHN's -Zosyn (D3), Tamiflu (D3), Vanco (D2) per ID -Monitor volumes -Diuresis as able -Replete K -F/U cards recs -TF's as tolerated -Continue A/C -DNAR/DNI, BiPAP ok Critical Care - Objective Last 24 Hour Vital Signs Date Time Temp Pulse Resp B/P (MAP) Pulse Ox O2 Delivery O2 Flow Rate FiO2 02/22/18 07:21 71 18 100 Nasal Cannula 2.0 28 02/22/18 07:20 74 20 98 Nasal Cannula 2.0 28 02/22/18 07:20 Nasal Cannula 2.0 28 02/22/18 07:19 98 Nasal Cannula 2.0 28 02/22/18 04:00 97.6 76 18 111/59 99 Nasal Cannula 4.0 97.6 02/22/18 04:00 76 02/22/18 00:44 74 18 98 Nasal Cannula 3.0 32 02/22/18 00:35 76 22 98 Nasal Cannula 3.0 32 02/22/18 00:00 97.6 100 21 126/71 100 Nasal Cannula 4.0 97.6 02/22/18 00:00 90 02/21/18 20:15 80 20 98 Nasal Cannula 3.0 32 02/21/18 20:00 4.0 02/21/18 20:00 97 02/21/18 20:00 97.8 73 20 100/54 100 Nasal Cannula 4.0 97.8 02/21/18 20:00 78 22 97 Nasal Cannula 3.0 32 02/21/18 19:59 Nasal Cannula 3.0 32 02/21/18 19:58 97 Nasal Cannula 3.0 32 02/21/18 16:00 97.6 80 20 135/58 100 Venturi Mask 6.0 35 97.6 02/21/18 16:00 84 02/21/18 16:00 6.0 35 02/21/18 12:52 68 19 99 Venturi Mask 28 02/21/18 12:44 Venturi Mask 30 02/21/18 12:44 98 Venturi Mask 30 02/21/18 12:42 64 21 98 Venturi Mask 30 02/21/18 12:00 6.0 35 02/21/18 12:00 58 02/21/18 11:53 97.5 71 21 123/58 100 Venturi Mask 6.0 35 97.5 02/21/18 10:43 68 19 98 30 02/21/18 10:00 6.0 35 02/21/18 08:53 66 20 96 35 Status: awake, other - demented Condition: improving HEENT: atraumatic, normocephalic Lungs: rhonchi Heart: HR/BP stable Abdomen: soft, non-tender, active bowel sounds, feeding tube Extremities: no C/C/E Micro: Microbiology Date/Time Source Procedure Growth Status 02/20/18 16:15 Blood Blood Culture - Preliminary Staphylococcus Species Resulted 02/20/18 16:00 Blood Blood Culture - Preliminary Staphylococcus Species Resulted 02/20/18 16:15 Nasal Nares Influenza Types A,B Antigen (EMMA) - Final Complete Critical Care - Subjective ROS Limited/Unobtainable: Yes ICU Day: 3 (TOMMY) Intubation Day: Off BiPAP Interval Events: S aureus in blood, now on Vanco AFVSS, O2 needs stable kameron TF's, no F/C, K 2.8 + cough earlier, no further hx obtainable Condition: improving IV Access: peripheral EKG Rhythm: Sinus Rhythm FI02: 28 Vent Support Mode: BiLevel Sputum Amount: None Tube Feeding Amount: 40 I&O: Intake and Output 02/21/18 02/22/18 19:00 07:00 Intake Total 537.5 ml 470.0 ml Output Total 800 ml 300 ml Balance -262.5 ml 170.0 ml Intake Free Water 200 ml IV Total 137.5 ml 90.0 ml Tube Feeding 140 ml 380 ml Other 60 ml Output Urine Total 800 ml 300 ml Subjective: GRACIE Labs: Intake and Output 02/21/18 02/22/18 19:00 07:00 Intake Total 537.5 ml 470.0 ml Output Total 800 ml 300 ml Balance -262.5 ml 170.0 ml Intake Free Water 200 ml IV Total 137.5 ml 90.0 ml Tube Feeding 140 ml 380 ml Other 60 ml Output Urine Total 800 ml 300 ml NAEEM HUNTLEY M.D. February 22, 2018 08:40
--- NOTE | 2018-02-22 10:58 | Infectious Diseases Prog Note ---
Assessment/Plan Assessment/Plan antibiotics : vancomycin iv, zosyn, tamiflu A 1. pneumonia 2. influenza B URI 3. staph sepsis 4. atrial fibrillation 5. hypertension P 1. continue vancomycin iv, zosyn, tamiflu 2. will follow up cultures Subjective ROS Limited/Unobtainable: Yes Allergies: Coded Allergies: No Known Allergies (Unverified , 02/20/18) Objective Vital Signs Last 24 Hour Vital Signs Date Time Temp Pulse Resp B/P (MAP) Pulse Ox O2 Delivery O2 Flow Rate FiO2 02/22/18 08:00 73 02/22/18 08:00 97.5 86 20 103/56 99 Nasal Cannula 4.0 97.5 02/22/18 07:21 71 18 100 Nasal Cannula 2.0 28 02/22/18 07:20 74 20 98 Nasal Cannula 2.0 28 02/22/18 07:20 Nasal Cannula 2.0 28 02/22/18 07:19 98 Nasal Cannula 2.0 28 02/22/18 04:00 97.6 76 18 111/59 99 Nasal Cannula 4.0 97.6 02/22/18 04:00 76 02/22/18 00:44 74 18 98 Nasal Cannula 3.0 32 02/22/18 00:35 76 22 98 Nasal Cannula 3.0 32 02/22/18 00:00 97.6 100 21 126/71 100 Nasal Cannula 4.0 97.6 02/22/18 00:00 90 02/21/18 20:15 80 20 98 Nasal Cannula 3.0 32 02/21/18 20:00 4.0 02/21/18 20:00 97 02/21/18 20:00 97.8 73 20 100/54 100 Nasal Cannula 4.0 97.8 02/21/18 20:00 78 22 97 Nasal Cannula 3.0 32 02/21/18 19:59 Nasal Cannula 3.0 32 02/21/18 19:58 97 Nasal Cannula 3.0 32 02/21/18 16:00 97.6 80 20 135/58 100 Venturi Mask 6.0 35 97.6 02/21/18 16:00 84 02/21/18 16:00 6.0 35 02/21/18 12:52 68 19 99 Venturi Mask 28 02/21/18 12:44 Venturi Mask 30 02/21/18 12:44 98 Venturi Mask 30 02/21/18 12:42 64 21 98 Venturi Mask 30 02/21/18 12:00 6.0 35 02/21/18 12:00 58 02/21/18 11:53 97.5 71 21 123/58 100 Venturi Mask 6.0 35 97.5 Height (Feet): 5 Height (Inches): 4.00 Weight (Pounds): 130 Respiratory/Chest: lungs clear Cardiovascular: normal rate, regular rhythm, no gallop/murmur Abdomen: soft, non tender, other - GT Extremities: no edema Microbiology Date/Time Source Procedure Growth Status 02/20/18 16:15 Blood Blood Culture - Preliminary Staphylococcus Species Resulted 02/20/18 16:00 Blood Blood Culture - Preliminary Staphylococcus Species Resulted 02/20/18 16:15 Nasal Nares Influenza Types A,B Antigen (EMMA) - Final Complete Laboratory Tests Test 02/21/18 15:47 02/22/18 03:20 Prothrombin Time 38.8 SEC (9.30-11.50) H 40.5 SEC (9.30-11.50) H Prothromb Time International Ratio 3.8 (0.9-1.1) H 4.0 (0.9-1.1) H White Blood Count 5.1 K/UL (4.8-10.8) Red Blood Count 3.43 M/UL (4.20-5.40) L Hemoglobin 10.4 G/DL (12.0-16.0) L Hematocrit 30.6 % (37.0-47.0) L Mean Corpuscular Volume 89 FL (80-99) Mean Corpuscular Hemoglobin 30.4 PG (27.0-31.0) Mean Corpuscular Hemoglobin Concent 34.1 G/DL (32.0-36.0) Red Cell Distribution Width 12.6 % (11.6-14.8) Platelet Count 124 K/UL (150-450) L Mean Platelet Volume 8.4 FL (6.5-10.1) Neutrophils (%) (Auto) 82.3 % (45.0-75.0) H Lymphocytes (%) (Auto) 7.6 % (20.0-45.0) L Monocytes (%) (Auto) 10.0 % (1.0-10.0) Eosinophils (%) (Auto) 0.0 % (0.0-3.0) Basophils (%) (Auto) 0.1 % (0.0-2.0) Sodium Level 137 MMOL/L (136-145) Potassium Level 2.5 MMOL/L (3.5-5.1) *L Chloride Level 98 MMOL/L (98-107) Carbon Dioxide Level 32 MMOL/L (21-32) Anion Gap 8 mmol/L (5-15) Blood Urea Nitrogen 23 mg/dL (7-18) H Creatinine 1.1 MG/DL (0.55-1.30) Estimat Glomerular Filtration Rate mL/min (>60) Glucose Level 155 MG/DL (74-106) H Calcium Level 8.2 MG/DL (8.5-10.1) L Total Bilirubin 0.5 MG/DL (0.2-1.0) Aspartate Amino Transf (AST/SGOT) 37 U/L (15-37) Alanine Aminotransferase (ALT/SGPT) 35 U/L (12-78) Alkaline Phosphatase 124 U/L (46-116) H Total Protein 6.3 G/DL (6.4-8.2) L Albumin 2.6 G/DL (3.4-5.0) L Globulin 3.7 g/dL Albumin/Globulin Ratio 0.7 (1.0-2.7) L Current Medications Medications (Trade) Dose Ordered Sig/Lanie Route PRN Reason Start Time Stop Time Status Last Admin Dose Admin Acetaminophen/ Hydrocodone Bitart ([place] 5/325) 1 tab Q6H PRN GT For Pain 02/20/18 22:45 02/27/18 22:44 Albuterol/ Ipratropium (Albuterol/ Ipratropium) 3 ml Q4H PRN HHN Shortness of Breath 02/20/18 20:30 02/25/18 20:29 Albuterol/ Ipratropium (Albuterol/ Ipratropium) 3 ml Q6HRT HHN 02/21/18 01:00 02/26/18 00:59 02/22/18 07:15 Artificial Tears (Akwa-Tears) 1 drop Q3H PRN BOTH EYES Dry Eyes 02/20/18 22:45 03/22/18 22:44 Atorvastatin Calcium (Lipitor) 20 mg BEDTIME GT 5/22/18 21:00 03/23/18 20:59 02/21/18 21:30 Bisacodyl (Dulcolax) 10 mg DAILY PRN RECTAL Constipation 02/20/18 22:45 03/22/18 22:44 Furosemide (Lasix) 20 mg Q12HR IV 02/20/18 21:00 03/22/18 20:59 02/22/18 08:40 Guaifenesin (Robitussin) 300 mg Q4H PRN GT For Cough 02/20/18 22:45 03/22/18 22:44 Lactobacillus Acidophilus (Culturelle) 1 tab BID GT 02/21/18 09:00 03/23/18 08:59 02/22/18 08:39 Lansoprazole (Prevacid) 30 mg DAILY GT 02/21/18 09:00 03/23/18 08:59 02/22/18 08:39 Levetiracetam (Keppra) 250 mg QHS GT 02/21/18 21:00 03/23/18 20:59 02/21/18 21:29 Levetiracetam (Keppra) 500 mg DAILY GT 02/21/18 09:00 03/23/18 08:59 02/22/18 08:38 Multivitamins (Multivitamins W/ Minerals 15ml Liquid) 15 ml DAILY GT 02/21/18 09:00 03/23/18 08:59 02/22/18 08:38 Oseltamivir Phosphate (Tamiflu) 30 mg BID ORAL 02/22/18 09:00 02/25/18 09:01 02/22/18 08:38 Pantoprazole (Protonix) 40 mg DAILY IVP 02/23/18 09:00 03/25/18 08:59 UNV Piperacillin Sod/ Tazobactam Sod 3.375 gm/Sodium Chloride 110 ml @ 27.5 mls/hr EVERY 8 HOURS IVPB 02/20/18 22:00 02/25/18 23:59 02/22/18 06:23 Potassium Chloride 100 ml @ 100 mls/hr Q1H IVPB 02/22/18 09:30 02/22/18 13:29 02/22/18 10:39 Sennosides (Senokot) 2 tab QHS GT 02/21/18 21:17 03/23/18 21:16 02/21/18 22:40 Sertraline HCl (Zoloft) 12.5 mg DAILY GT 02/21/18 09:00 03/23/18 08:59 UNV Vancomycin HCl (Vanco rx to dose) 1 ea DAILY PRN MISC Per rx protocol 02/21/18 12:00 03/23/18 11:59 Vancomycin/Sodium Chloride 250 ml @ 166.667 mls/hr Q24H IVPB 02/22/18 18:00 02/27/18 17:59 Warfarin Sodium (Coumadin per pharmacy) 1 ea DAILY PRN MISC Per rx protocol 02/21/18 19:15 03/23/18 19:14 VIOLETA VOGEL February 22, 2018 10:58
--- NOTE | 2018-02-22 11:09 | GI Initial Consult Note ---
History of Present Illness General Date patient seen: February 22, 2018 Time patient seen: 12:00 Reason for Hospitalization: Upper Respiratory Illness Referring physician: EZEKIEL CORONADO Reason for Consultation: GT MALFUNCTION Present Illness HPI Patient is brought in from a custodial facility for shortness of breath. EMS report that she has had congestion and wheezing. Per EMS evaluation she had wheezing on exam and she was given albuterol nebulizer treatment. The patient is nonverbal at baseline. The patient has a history of seizure disorder. There is no other history available. GI consulted for possible GT displacement/malfunction. Per RN report, it was noticed the the GT feedings were running, the skin around the GT site would protrude in the shape of a ring. Because of this, the GTF feeding rate was reduced in attempts to minimize this. GT site area access, no noted leak with slight skin elevation around the site and erythema at the site itself. No noted skin tears or bleed. Presents with anemia and electrolyte imbalance. Home Meds Reported Medications Guaifenesin* (GUAIFENESIN) 100 Mg/5 Ml Liquid, 15 ML GT Q4HR PRN for For Cough, #120 ML 0 Refills 02/20/18 Dextran 70/Hypromellose (ARTIFICIAL TEARS EYE DROPS*) 15 Ml Drops, 1 DROP BOTH EYES Q3HR PRN for Dry Eyes, #15 ML 0 Refills 02/20/18 Hydrocodone Bit/Acetaminophen 5-325* ([place] 5-325*) 1 Each Tablet, 1 TAB GT Q6H PRN for For Pain, TAB 0 Refills 02/20/18 Bisacodyl (DULCOLAX) 10 Mg Supp.rect, 10 MG RC PRN for Constipation, SUPP 02/20/18 Levetiracetam* (LEVETIRACETAM*) 100 Mg/1 Ml Solution, 250 MG GT QHS for seizure 02/20/18 Levetiracetam* (LEVETIRACETAM*) 100 Mg/1 Ml Solution, 500 MG GT every morning for seizure 02/20/18 Sennosides (SENNA) 8.6 Mg Tablet, 17.2 MG GT QHS for bowel management, TAB 02/20/18 Docusate Sodium* (DOCUSATE SODIUM*) 100 Mg Capsule, 100 MG GT DAILY for bowel management, CAP 02/20/18 Lactobacillus Rhamnosus Gg* (CULTURELLE*) 1 Each Capsule, 1 CAP GT BID, CAP 02/20/18 Multivitamin With Minerals (MULTIVITAMINS WITH MINERALS*) 1 Each Tablet, 1 TAB GT DAILY for supplement, TAB 02/20/18 Sertraline Hcl* (SERTRALINE HCL*) 25 Mg Tablet, 12.5 MG GT DAILY, TAB 02/20/18 Rosuvastatin Calcium* (CRESTOR*) 10 Mg Tablet, 10 MG GT DAILY, TAB 02/20/18 Omeprazole (OMEPRAZOLE) 40 Mg Capsule.dr, 40 MG GT DAILY, CAP 02/20/18 Warfarin Sod* (COUMADIN*) 1 Mg Tablet, 4.5 MG GT DAILY, TAB 02/20/18 Discontinued Reported Medications Ferrous Sulfate (Ferrous Sulfate) 220 Mg/5 Ml Elixir, 330 MG GT for anemia, ML 02/20/18 Med list reviewed/reconciled: Yes Allergies: Coded Allergies: No Known Allergies (Unverified , 02/20/18) Patient History Limited by: medical condition History Provided By: Medical Record PMH Narrative Past Medical History: see triage record, HTN, SC, CAD, CHF, COPD, GERD, dementia, seizures Social History: Denies: smoking, alcohol use, drug use Reviewed Nursing Documentation: PMH: Agreed; PSxH: Agreed Nursing Documentation-PMH Past Medical History: No History, Except For Hx Cardiac Problems: Yes - AFIB Review of Systems All Other Systems: limited Physical Exam Vital Signs Date Time Temp Pulse Resp B/P (MAP) Pulse Ox O2 Delivery O2 Flow Rate FiO2 02/20/18 15:36 80 20 134/62 99 T-piece 6.0 02/20/18 16:36 50 02/20/18 17:00 100.2 100.2 Sp02 EP Interpretation: reviewed, normal Labs Laboratory Tests Test 02/21/18 15:47 02/22/18 03:20 Prothrombin Time 38.8 SEC (9.30-11.50) H 40.5 SEC (9.30-11.50) H Prothromb Time International Ratio 3.8 (0.9-1.1) H 4.0 (0.9-1.1) H White Blood Count 5.1 K/UL (4.8-10.8) Red Blood Count 3.43 M/UL (4.20-5.40) L Hemoglobin 10.4 G/DL (12.0-16.0) L Hematocrit 30.6 % (37.0-47.0) L Mean Corpuscular Volume 89 FL (80-99) Mean Corpuscular Hemoglobin 30.4 PG (27.0-31.0) Mean Corpuscular Hemoglobin Concent 34.1 G/DL (32.0-36.0) Red Cell Distribution Width 12.6 % (11.6-14.8) Platelet Count 124 K/UL (150-450) L Mean Platelet Volume 8.4 FL (6.5-10.1) Neutrophils (%) (Auto) 82.3 % (45.0-75.0) H Lymphocytes (%) (Auto) 7.6 % (20.0-45.0) L Monocytes (%) (Auto) 10.0 % (1.0-10.0) Eosinophils (%) (Auto) 0.0 % (0.0-3.0) Basophils (%) (Auto) 0.1 % (0.0-2.0) Sodium Level 137 MMOL/L (136-145) Potassium Level 2.5 MMOL/L (3.5-5.1) *L Chloride Level 98 MMOL/L (98-107) Carbon Dioxide Level 32 MMOL/L (21-32) Anion Gap 8 mmol/L (5-15) Blood Urea Nitrogen 23 mg/dL (7-18) H Creatinine 1.1 MG/DL (0.55-1.30) Estimat Glomerular Filtration Rate mL/min (>60) Glucose Level 155 MG/DL (74-106) H Calcium Level 8.2 MG/DL (8.5-10.1) L Total Bilirubin 0.5 MG/DL (0.2-1.0) Aspartate Amino Transf (AST/SGOT) 37 U/L (15-37) Alanine Aminotransferase (ALT/SGPT) 35 U/L (12-78) Alkaline Phosphatase 124 U/L (46-116) H Total Protein 6.3 G/DL (6.4-8.2) L Albumin 2.6 G/DL (3.4-5.0) L Globulin 3.7 g/dL Albumin/Globulin Ratio 0.7 (1.0-2.7) L General Appearance: well appearing, no apparent distress, alert Head: normocephalic EENT: PERRL/EOMI, normal ENT inspection Neck: supple Respiratory: normal breath sounds, no respiratory distress Cardiovascular: normal rate Gastrointestinal: normal inspection, non tender, soft, normal bowel sounds, non -distended, gt - see HPI Rectal: deferred Genitourinary: no CVA tenderness Musculoskeletal: normal inspection, back normal Neurologic: alert Skin: normal inspection, normal color, no rash, warm/dry, palpation normal, well hydrated Lymphatic: normal inspection, no adenopathy Current Medications Current Medications Medications (Trade) Dose Ordered Sig/Lanie Route PRN Reason Start Time Stop Time Status Last Admin Dose Admin Acetaminophen/ Hydrocodone Bitart ([place] 5/325) 1 tab Q6H PRN GT For Pain 02/20/18 22:45 02/27/18 22:44 Albuterol/ Ipratropium (Albuterol/ Ipratropium) 3 ml Q4H PRN HHN Shortness of Breath 02/20/18 20:30 02/25/18 20:29 Albuterol/ Ipratropium (Albuterol/ Ipratropium) 3 ml Q6HRT HHN 02/21/18 01:00 02/26/18 00:59 02/22/18 07:15 Artificial Tears ([place]-Tears) 1 drop Q3H PRN BOTH EYES Dry Eyes 02/20/18 22:45 03/22/18 22:44 Atorvastatin Calcium (Lipitor) 20 mg BEDTIME GT 02/21/18 21:00 03/23/18 20:59 02/21/18 21:30 Bisacodyl (Dulcolax) 10 mg DAILY PRN RECTAL Constipation 02/20/18 22:45 03/22/18 22:44 Furosemide (Lasix) 20 mg Q12HR IV 02/20/18 21:00 03/22/18 20:59 02/22/18 08:40 Guaifenesin (Robitussin) 300 mg Q4H PRN GT For Cough 02/20/18 22:45 03/22/18 22:44 Lactobacillus Acidophilus (Culturelle) 1 tab BID GT 02/21/18 09:00 03/23/18 08:59 02/22/18 08:39 Levetiracetam (Keppra) 250 mg QHS GT 02/21/18 21:00 03/23/18 20:59 02/21/18 21:29 Levetiracetam (Keppra) 500 mg DAILY GT 02/21/18 09:00 03/23/18 08:59 02/22/18 08:38 Multivitamins (Multivitamins W/ Minerals 15ml Liquid) 15 ml DAILY GT 02/21/18 09:00 03/23/18 08:59 02/22/18 08:38 Oseltamivir Phosphate (Tamiflu) 30 mg BID ORAL 02/22/18 09:00 02/25/18 09:01 02/22/18 08:38 Pantoprazole (Protonix) 40 mg DAILY IVP 02/23/18 09:00 03/25/18 08:59 Piperacillin Sod/ Tazobactam Sod 3.375 gm/Sodium Chloride 110 ml @ 27.5 mls/hr EVERY 8 HOURS IVPB 02/20/18 22:00 02/25/18 23:59 02/22/18 06:23 Potassium Chloride 100 ml @ 100 mls/hr Q1H IVPB 02/22/18 09:30 02/22/18 13:29 02/22/18 10:39 Sennosides (Senokot) 2 tab QHS GT 02/21/18 21:17 03/23/18 21:16 02/21/18 22:40 Sertraline HCl (Zoloft) 12.5 mg DAILY GT 02/21/18 09:00 03/23/18 08:59 UNV Vancomycin HCl (Vanco rx to dose) 1 ea DAILY PRN MISC Per rx protocol 02/21/18 12:00 03/23/18 11:59 Vancomycin/Sodium Chloride 250 ml @ 166.667 mls/hr Q24H IVPB 02/22/18 18:00 02/27/18 17:59 Warfarin Sodium (Coumadin per pharmacy) 1 ea DAILY PRN MISC Per rx protocol 02/21/18 19:15 03/23/18 19:14 GI: Plan Problems: (1) Gastrojejunostomy tube dislodgement (2) Gastrostomy malfunction Plan will keep patient NPO for now to verify GT placement. - ordered KUB + Gastrografin - ok to restart GTFs per RD if imaging study confirms placement of GT GT site care daily/prn anemia work up OB stool r/o GI bleed monitor H&H, prn transfusions electrolyte replacement bowel regime ppi fu labs Discussed with Dr. Quigley. Thank you for this patient referral, we will follow. The patient was seen and examined at bedside and all new and available data was reviewed in the patients chart. I agree with the above findings, impression and plan. (Patient seen earlier today. Signature stamp does not reflect patient encounter time.). - MD Susi SyedBannerKike MANDARIN TEACHER February 22, 2018 11:09
[2018-02-22 12:00] VITALS: BP 118/54
--- NOTE | 2018-02-22 12:44 | Diagnostic Imaging Report ---
Indication: Abdominal pain Comparison: None Single view of the abdomen obtained Findings: Bowel gas pattern is nonspecific. No mass, ectopic calcifications, or abnormal gas collections are identified. The bones are osteopenic. IVC filter noted. Gastrostomy tubing noted. Impression: No acute findings
--- NOTE | 2018-02-22 12:45 | Diagnostic Imaging Report ---
Indication: Dyspnea Comparison: 02/20/2018 A single view chest radiograph was obtained. Findings: Interstitial and vascular prominence demonstrated within the lungs, improved since the prior study. The heart is enlarged. Sternotomy is noted. The bones are slightly osteopenic. IVC filter noted. IMPRESSION: Interstitial edema with some improvement since the previous exam.
--- NOTE | 2018-02-22 13:42 | Cardiac Electrophysiology PN ---
Subjective Subjective [id number] Objective Last 24 Hour Vital Signs Date Time Temp Pulse Resp B/P (MAP) Pulse Ox O2 Delivery O2 Flow Rate FiO2 02/22/18 13:41 67 20 99 Nasal Cannula 2.0 28 02/22/18 12:00 74 02/22/18 12:00 97.2 70 22 118/54 100 Nasal Cannula 2.0 97.2 02/22/18 08:00 73 02/22/18 08:00 97.5 86 20 103/56 99 Nasal Cannula 4.0 97.5 02/22/18 07:21 71 18 100 Nasal Cannula 2.0 28 02/22/18 07:20 74 20 98 Nasal Cannula 2.0 28 02/22/18 07:20 Nasal Cannula 2.0 28 02/22/18 07:19 98 Nasal Cannula 2.0 28 02/22/18 04:00 97.6 76 18 111/59 99 Nasal Cannula 4.0 97.6 02/22/18 04:00 76 02/22/18 00:44 74 18 98 Nasal Cannula 3.0 32 02/22/18 00:35 76 22 98 Nasal Cannula 3.0 32 02/22/18 00:00 97.6 100 21 126/71 100 Nasal Cannula 4.0 97.6 02/22/18 00:00 90 02/21/18 20:15 80 20 98 Nasal Cannula 3.0 32 02/21/18 20:00 4.0 02/21/18 20:00 97 02/21/18 20:00 97.8 73 20 100/54 100 Nasal Cannula 4.0 97.8 02/21/18 20:00 78 22 97 Nasal Cannula 3.0 32 02/21/18 19:59 Nasal Cannula 3.0 32 02/21/18 19:58 97 Nasal Cannula 3.0 32 02/21/18 16:00 97.6 80 20 135/58 100 Venturi Mask 6.0 35 97.6 02/21/18 16:00 84 02/21/18 16:00 6.0 35 Intake and Output 02/21/18 02/22/18 19:00 07:00 Intake Total 537.5 ml 470.0 ml Output Total 800 ml 300 ml Balance -262.5 ml 170.0 ml Intake Free Water 200 ml IV Total 137.5 ml 90.0 ml Tube Feeding 140 ml 380 ml Other 60 ml Output Urine Total 800 ml 300 ml Laboratory Tests Test 02/21/18 15:47 02/22/18 03:20 Prothrombin Time 38.8 SEC (9.30-11.50) H 40.5 SEC (9.30-11.50) H Prothromb Time International Ratio 3.8 (0.9-1.1) H 4.0 (0.9-1.1) H White Blood Count 5.1 K/UL (4.8-10.8) Red Blood Count 3.43 M/UL (4.20-5.40) L Hemoglobin 10.4 G/DL (12.0-16.0) L Hematocrit 30.6 % (37.0-47.0) L Mean Corpuscular Volume 89 FL (80-99) Mean Corpuscular Hemoglobin 30.4 PG (27.0-31.0) Mean Corpuscular Hemoglobin Concent 34.1 G/DL (32.0-36.0) Red Cell Distribution Width 12.6 % (11.6-14.8) Platelet Count 124 K/UL (150-450) L Mean Platelet Volume 8.4 FL (6.5-10.1) Neutrophils (%) (Auto) 82.3 % (45.0-75.0) H Lymphocytes (%) (Auto) 7.6 % (20.0-45.0) L Monocytes (%) (Auto) 10.0 % (1.0-10.0) Eosinophils (%) (Auto) 0.0 % (0.0-3.0) Basophils (%) (Auto) 0.1 % (0.0-2.0) Sodium Level 137 MMOL/L (136-145) Potassium Level 2.5 MMOL/L (3.5-5.1) *L Chloride Level 98 MMOL/L (98-107) Carbon Dioxide Level 32 MMOL/L (21-32) Anion Gap 8 mmol/L (5-15) Blood Urea Nitrogen 23 mg/dL (7-18) H Creatinine 1.1 MG/DL (0.55-1.30) Estimat Glomerular Filtration Rate mL/min (>60) Glucose Level 155 MG/DL (74-106) H Calcium Level 8.2 MG/DL (8.5-10.1) L Total Bilirubin 0.5 MG/DL (0.2-1.0) Aspartate Amino Transf (AST/SGOT) 37 U/L (15-37) Alanine Aminotransferase (ALT/SGPT) 35 U/L (12-78) Alkaline Phosphatase 124 U/L (46-116) H Total Protein 6.3 G/DL (6.4-8.2) L Albumin 2.6 G/DL (3.4-5.0) L Globulin 3.7 g/dL Albumin/Globulin Ratio 0.7 (1.0-2.7) L Microbiology Date/Time Source Procedure Growth Status 02/20/18 16:15 Blood Blood Culture - Preliminary Staphylococcus Species Resulted 02/20/18 16:00 Blood Blood Culture - Preliminary Staphylococcus Species Resulted 02/20/18 16:15 Nasal Nares Influenza Types A,B Antigen (EMMA) - Final Complete Arslan Fowler MD February 22, 2018 13:42
[2018-02-22 16:00] VITALS: BP 125/57
--- NOTE | 2018-02-22 17:10 | Cardiology Report ---
APPROVED REPORT EKG Measurement Heart [id number] DC [id number] Sinus tachycardia Possible Anterior infarct, age undetermined Abnormal ECG
[2018-02-22] MEDS ORDERED: Vancomycin 750mg/NS 250ml IVPB SCH (18:00)
--- NOTE | 2018-02-22 18:15 | Consultation ---
DATE OF CONSULTATION: 02/22/2018 CARDIOLOGY CONSULTATION CONSULTING PHYSICIAN: Arslan Fowler M.D. REFERRING PHYSICIAN: Darrion Obrien M.D. REASON FOR CONSULTATION: Management of hypertension and congestive heart failure. HISTORY OF PRESENT ILLNESS: The patient is an 82-year-old, [place] lady with history of hypertension, congestive heart failure, as well as hypothyroidism, history of dysphagia, status post PEG placement, who was brought into the emergency room for increasing shortness of breath from [facility]. The patient had congestion and wheezing. The patient received nebulizer treatment. There was also question of a GT malfunction and the patient was evaluated by Dr. Quigley. At the time of my evaluation, the patient is able to verbalize, however, she is confused. PAST MEDICAL HISTORY: As mentioned above. FAMILY HISTORY: Noncontributory. SOCIAL HISTORY: She lives in [facility]. Does not smoke or drink alcohol. REVIEW OF SYSTEMS: Cannot be obtained. PHYSICAL EXAMINATION: VITAL SIGNS: Blood pressure of 118/54, pulse is 70, respirations 18, and temperature 97.2 degrees. HEAD AND NECK: No JVD. LUNGS: Coarse rhonchi. CARDIOVASCULAR: Regular S1 and S2 with no gallop or murmur. ABDOMEN: Status post G-tube. EXTREMITIES: 1+ pitting edema. LABORATORY AND DIAGNOSTIC DATA: Her EKG showed sinus tachycardia, rate of 110, and possible old anterior wall infarct. Her echocardiogram from 02/21/2018 showed ejection fraction of 60%-65% with moderate tricuspid regurgitation. Labs show white count of 5.1, hematocrit 10.4, and hematocrit 30.6. Sodium is 137, potassium is 2.5, BUN of 22, and creatinine 1.1. INR is 4. ASSESSMENT AND PLAN: 1. Shortness of breath. This could be secondary to congestive heart failure. This could be due to diastolic dysfunction and ejection fraction is within normal level. We will start the patient on Lasix. 2. Severe hypokalemia with potassium 2.5. Potassium will be replaced. 3. Dysphagia, status post percutaneous endoscopic gastrostomy placement. 4. Chronic obstructive pulmonary disease, on vancomycin and antibiotics. 5. Paroxysmal atrial fibrillation, on Coumadin with INR goal of 2 to 3. 6. Advanced dementia. Thank you very much, Dr. Obrien, for allowing me to participate in the care of this patient. Please do not hesitate to contact me for any questions regarding my evaluation. Arslan Fowler M.D. DR: SNOW JOB#: [id number] CC:
[2018-02-22 20:00] VITALS: BP 129/70
[2018-02-22] MEDS ORDERED: Albuterol/Ipratropium 3ml neb HHN PRN (21:00)
[2018-02-22] MEDS ORDERED: guaiFENesin 100mg/5ml Liq ud GT PRN (21:00)
[2018-02-22] MEDS ORDERED: Norco 5mg/325mg tab GT PRN (21:00)
[2018-02-22] MEDS ORDERED: Artificial Tears 1.4% Op Soln BOTH EYES PRN (21:00)
--- NOTE | 2018-02-22 22:38 | General Progress Note ---
Assessment/Plan Assessment/Plan chf influenza b fevers afib artificial valve diuresis on nc pulmonary eval appreciated pulmonary hygiene on tamiflu on abx cards eval from Dr Fowler gi eval of gtube from dr lopez Subjective Allergies: Coded Allergies: No Known Allergies (Unverified , 02/20/18) Subjective seen in am more alet on nasal canula now has some swelling around gtube site Objective Last 24 Hour Vital Signs Date Time Temp Pulse Resp B/P (MAP) Pulse Ox O2 Delivery O2 Flow Rate FiO2 02/22/18 20:00 97.7 97 22 129/70 99 Nasal Cannula 3.0 97.7 02/22/18 19:06 75 18 99 Nasal Cannula 2.0 28 02/22/18 18:56 Nasal Cannula 2.0 28 02/22/18 18:56 72 18 99 Nasal Cannula 2.0 28 02/22/18 18:56 99 Nasal Cannula 2.0 28 02/22/18 16:00 97.5 75 18 125/57 97 Nasal Cannula 2.0 97.5 02/22/18 16:00 76 02/22/18 13:55 64 18 100 Nasal Cannula 2.0 28 02/22/18 13:41 67 20 99 Nasal Cannula 2.0 28 02/22/18 12:00 74 02/22/18 12:00 97.2 70 22 118/54 100 Nasal Cannula 2.0 97.2 02/22/18 08:00 73 02/22/18 08:00 97.5 86 20 103/56 99 Nasal Cannula 4.0 97.5 02/22/18 07:21 71 18 100 Nasal Cannula 2.0 28 02/22/18 07:20 74 20 98 Nasal Cannula 2.0 28 02/22/18 07:20 Nasal Cannula 2.0 28 02/22/18 07:19 98 Nasal Cannula 2.0 28 02/22/18 04:00 97.6 76 18 111/59 99 Nasal Cannula 4.0 97.6 02/22/18 04:00 76 02/22/18 00:44 74 18 98 Nasal Cannula 3.0 32 02/22/18 00:35 76 22 98 Nasal Cannula 3.0 32 02/22/18 00:00 97.6 100 21 126/71 100 Nasal Cannula 4.0 97.6 02/22/18 00:00 90 Intake and Output 02/21/18 02/22/18 19:00 07:00 Intake Total 537.5 ml 497.5 ml Output Total 800 ml 300 ml Balance -262.5 ml 197.5 ml Intake Free Water 200 ml IV Total 137.5 ml 117.5 ml Tube Feeding 140 ml 380 ml Other 60 ml Output Urine Total 800 ml 300 ml Laboratory Tests 02/22/18 03:20: White Blood Count 5.1, Red Blood Count 3.43L, Hemoglobin 10.4L, Hematocrit 30.6L , Mean Corpuscular Volume 89, Mean Corpuscular Hemoglobin 30.4, Mean Corpuscular Hemoglobin Concent 34.1, Red Cell Distribution Width 12.6, Platelet Count 124L, Mean Platelet Volume 8.4, Neutrophils (%) (Auto) 82.3H, Lymphocytes (%) (Auto) 7.6L, Monocytes (%) (Auto) 10.0, Eosinophils (%) (Auto) 0.0, Basophils (%) (Auto) 0.1, Prothrombin Time 40.5H, Prothromb Time International Ratio 4.0H, Sodium Level 137, Potassium Level 2.5*L, Chloride Level 98, Carbon Dioxide Level 32, Anion Gap 8, Blood Urea Nitrogen 23H, Creatinine 1.1, Estimat Glomerular Filtration Rate , Glucose Level 155H, Calcium Level 8.2L, Total Bilirubin 0.5, Aspartate Amino Transf (AST/SGOT) 37, Alanine Aminotransferase ( ALT/SGPT) 35, Alkaline Phosphatase 124H, Total Protein 6.3L, Albumin 2.6L, Globulin 3.7, Albumin/Globulin Ratio 0.7L Height (Feet): 5 Height (Inches): 4.00 Weight (Pounds): 130 General Appearance: WD/WN Neck: supple Respiratory/Chest: rhonchi - bilaterally Abdomen: soft Objective pos gtube slight swellin on the left iside of it no leakage noted contracteded le 1 plus edema hemiparesis Darrion Obrien MD February 22, 2018 22:38
[2018-02-22] MEDS: Sennosides 8.6mg GT SCH (22:40)
[2018-02-22] MEDS: Atorvastatin 20mg tab GT SCH (22:41)
[2018-02-23] VITALS: BP 114/83
[2018-02-23] MEDS: Albuterol/Ipratropium 3ml neb HHN SCH ×4 (01:04→19:47)
[2018-02-23 04:00] VITALS: BP 119/79
[2018-02-23] MEDS: Piperacillin/Tazobactam 3.375 GM in NS 110 ML IVPB SCH ×3 (06:01→22:34)
[2018-02-23 08:00] VITALS: BP 118/54
[2018-02-23] MEDS ORDERED: Multivitamin w/Minerals tab ORAL SCH (09:00)
[2018-02-23] MEDS ORDERED: Pantoprazole Inj IVP SCH (09:00)
[2018-02-23 10:00] LABS: BASOPHILS % (AUTO) 0.2 % (0.0-2.0); EOSINOPHILS % (AUTO) 0.6 % (0.0-3.0); HEMATOCRIT 31.7 % (37.0-47.0); HEMOGLOBIN 10.5 G/DL (12.0-16.0); LYMPHOCYTES % (AUTO) 21.8 % (20.0-45.0); MEAN CORPUSCULAR VOLUME 91 FL (80-99); MONOCYTES % (AUTO) 9.7 % (1.0-10.0); NEUTROPHILS % (AUTO) 67.6 % (45.0-75.0); PLATELET COUNT 141 K/UL (150-450); RED BLOOD COUNT 3.47 M/UL (4.20-5.40); RED CELL DISTRIBUTION WIDTH 12.5 % (11.6-14.8); WHITE BLOOD COUNT 4.7 K/UL (4.8-10.8)
[2018-02-23] MEDS: Docusate 100mg cap ORAL SCH (10:00)
[2018-02-23] MEDS: Lactobacillus-GG tablet GT SCH ×2 (10:00→17:19)
[2018-02-23] MEDS: Pantoprazole Inj IVP SCH (10:01)
[2018-02-23] MEDS: levETIRAcetam 500mg/5ml Liquid GT SCH ×2 (10:02→21:48)
[2018-02-23] MEDS: Multivitamins W/Minerals 15 ML UDC GT SCH (10:03)
--- NOTE | 2018-02-23 10:34 | Pulmonology Progress Note ---
Assessment/Plan Problems: (1) CHF (congestive heart failure) (2) Influenza B (3) Bronchospasm (4) Pulmonary edema (5) Fever (6) UTI (urinary tract infection) (7) Staphylococcus aureus bacteremia (8) Gastrostomy tube in place (9) CVA (cerebral vascular accident) Assessment/Plan -Optimize pulmonary hygiene/mobilize as tolerated -Titrate down FiO2 to keep SaO2 > 90% -RTC and PRN HHN's -Zosyn (D4), Tamiflu (D4), Vanco (D3) per ID -Monitor volumes -Diuresis as able -F/U cards recs -TF's as tolerated -Continue A/C -DNAR/DNI, BiPAP ok Subjective Allergies: Coded Allergies: No Known Allergies (Unverified , 02/20/18) Subjective -1370, AFVSS, TTF No change in MS, stable O2 needs No F/C, no cough, no SOB, kameron TF's Objective Last 24 Hour Vital Signs Date Time Temp Pulse Resp B/P (MAP) Pulse Ox O2 Delivery O2 Flow Rate FiO2 02/23/18 08:00 97.5 85 20 118/54 97 Nasal Cannula 3.0 97.5 02/23/18 07:55 65 18 99 Nasal Cannula 2.0 28 02/23/18 07:44 95 Nasal Cannula 2.0 28 02/23/18 07:44 Nasal Cannula 2.0 28 02/23/18 07:44 60 18 95 Nasal Cannula 2.0 28 02/23/18 04:00 66 02/23/18 04:00 97.3 98 19 119/79 98 Nasal Cannula 3.0 97.3 02/23/18 01:12 68 18 99 Nasal Cannula 2.0 28 02/23/18 01:02 68 18 97 Nasal Cannula 2.0 28 02/23/18 00:00 65 02/23/18 00:00 96.4 99 20 114/83 96 Nasal Cannula 3.0 96.4 02/22/18 20:00 77 02/22/18 20:00 97.7 97 22 129/70 99 Nasal Cannula 3.0 97.7 02/22/18 19:06 75 18 99 Nasal Cannula 2.0 28 02/22/18 18:56 Nasal Cannula 2.0 28 02/22/18 18:56 72 18 99 Nasal Cannula 2.0 28 02/22/18 18:56 99 Nasal Cannula 2.0 28 02/22/18 16:00 97.5 75 18 125/57 97 Nasal Cannula 2.0 97.5 02/22/18 16:00 76 02/22/18 13:55 64 18 100 Nasal Cannula 2.0 28 02/22/18 13:41 67 20 99 Nasal Cannula 2.0 28 02/22/18 12:00 74 02/22/18 12:00 97.2 70 22 118/54 100 Nasal Cannula 2.0 97.2 Intake and Output 02/22/18 02/23/18 19:00 07:00 Intake Total 382.5 ml 120 ml Output Total 1000 ml 900 ml Balance -617.5 ml -780 ml IV Total 382.5 ml Tube Feeding 120 ml Output Urine Total 1000 ml 900 ml General Appearance: no acute distress, cachetic HEENT: normocephalic, atraumatic, anicteric, mucous membranes moist Respiratory/Chest: chest wall non-tender, lungs clear, normal breath sounds, no respiratory distress Cardiovascular: normal peripheral pulses, normal rate, regular rhythm Abdomen: normal bowel sounds, soft, non tender, no organomegaly, non distended , other - GT CDI Extremities: no cyanosis, no clubbing, no edema Microbiology Date/Time Source Procedure Growth Status 02/20/18 16:15 Blood Blood Culture - Preliminary Staphylococcus Epidermidis Resulted 02/20/18 16:00 Blood Blood Culture - Final Staphylococcus Epidermidis Complete 02/20/18 16:15 Nasal Nares Influenza Types A,B Antigen (EMMA) - Final Complete 02/20/18 16:00 Rectum VRE Culture - Final NO VANCOMYCIN RESISTANT ENTEROCOCCUS ... Complete Laboratory Tests 02/23/18 09:40: White Blood Count 4.7L, Red Blood Count 3.47L, Hemoglobin 10.5L, Hematocrit 31.7L, Mean Corpuscular Volume 91, Mean Corpuscular Hemoglobin 30.1, Mean Corpuscular Hemoglobin Concent 33.0, Red Cell Distribution Width 12.5, Platelet Count 141L, Mean Platelet Volume 8.5, Neutrophils (%) (Auto) 67.6, Lymphocytes ( %) (Auto) 21.8, Monocytes (%) (Auto) 9.7, Eosinophils (%) (Auto) 0.6, Basophils (%) (Auto) 0.2, Reticulocyte Count [Pending], Prothrombin Time [Pending], Prothromb Time International Ratio [Pending], Activated Partial Thromboplast Time [Pending], Sodium Level [Pending], Potassium Level [Pending], Chloride Level [Pending], Carbon Dioxide Level [Pending], Blood Urea Nitrogen [Pending], Creatinine [Pending], Estimat Glomerular Filtration Rate [Pending], Glucose Level [Pending], Calcium Level [Pending], Iron Level [Pending], Unsaturated Iron Binding [Pending], Ferritin [Pending], Total Bilirubin [Pending], Aspartate Amino Transf (AST/SGOT) [Pending], Alanine Aminotransferase (ALT/SGPT ) [Pending], Alkaline Phosphatase [Pending], Total Protein [Pending], Albumin [ Pending], Globulin [Pending], Carcinoembryonic Antigen [Pending], Vitamin B12 Level [Pending], Folate [Pending], Thyroid Stimulating Hormone (TSH) [Pending], Free Thyroxine [Pending] Current Medications Medications (Trade) Dose Ordered Sig/Lanie Route PRN Reason Start Time Stop Time Status Last Admin Dose Admin Acetaminophen/ Hydrocodone Bitart (Watson 5/325) 1 tab Q6H PRN GT For Pain 02/22/18 21:00 02/27/18 20:59 Albuterol/ Ipratropium (Albuterol/ Ipratropium) 3 ml Q4H PRN HHN Shortness of Breath 02/22/18 21:00 02/27/18 20:59 Albuterol/ Ipratropium (Albuterol/ Ipratropium) 3 ml Q6HRT HHN 02/23/18 01:00 02/26/18 00:59 02/23/18 07:44 Artificial Tears (Akwa-Tears) 1 drop Q3H PRN BOTH EYES Dry Eyes 02/22/18 21:00 03/22/18 20:59 Atorvastatin Calcium (Lipitor) 20 mg BEDTIME GT 02/22/18 21:00 03/23/18 20:59 02/22/18 22:41 Bisacodyl (Dulcolax) 10 mg DAILYPRN PRN RECTAL Constipation 02/22/18 21:00 03/24/18 20:59 Docusate Sodium (Colace) 100 mg DAILY ORAL 02/23/18 09:00 03/25/18 08:59 Furosemide (Lasix) 20 mg Q12HR IV 02/22/18 21:00 03/22/18 20:59 02/22/18 22:41 Guaifenesin (Robitussin) 300 mg Q4H PRN GT For Cough 02/22/18 21:00 03/22/18 20:59 Lactobacillus Acidophilus (Culturelle) 1 tab BID GT 02/23/18 09:00 03/23/18 08:59 02/23/18 10:00 Levetiracetam (Keppra) 250 mg QHS GT 02/22/18 21:00 03/23/18 20:59 02/22/18 22:42 Levetiracetam (Keppra) 500 mg DAILY GT 02/23/18 09:00 03/23/18 08:59 02/23/18 10:02 Multivitamins (Multivitamins W/ Minerals 15ml Liquid) 15 ml DAILY GT 02/23/18 09:00 03/23/18 08:59 02/23/18 10:03 Oseltamivir Phosphate (Tamiflu) 30 mg BID ORAL 02/23/18 09:00 02/25/18 09:01 Pantoprazole (Protonix) 40 mg DAILY IVP 02/23/18 09:00 03/25/18 08:59 02/23/18 10:01 Piperacillin Sod/ Tazobactam Sod 3.375 gm/Sodium Chloride 110 ml @ 27.5 mls/hr EVERY 8 HOURS IVPB 02/22/18 22:00 02/25/18 23:59 02/23/18 06:01 Sennosides (Senokot) 2 tab QHS GT 02/22/18 21:00 03/23/18 21:16 02/22/18 22:40 Sertraline HCl (Zoloft) 12.5 mg DAILY GT 02/23/18 09:00 03/23/18 08:59 UNV Vancomycin HCl (Vanco rx to dose) 1 ea DAILY PRN MISC Per rx protocol 02/23/18 09:00 03/23/18 11:59 Vancomycin/Sodium Chloride 250 ml @ 166.667 mls/hr Q24H IVPB 02/23/18 18:00 02/27/18 17:59 Warfarin Sodium (Coumadin per pharmacy) 1 ea DAILY PRN MISC Per rx protocol 02/23/18 09:00 03/23/18 19:14 NAEEM HUNTLEY M.D. February 23, 2018 10:34
[2018-02-23 10:35] LABS: % IRON SATURATION 13 % (15-50); IRON 16 ug/dL (50-175); TOTAL IRON BINDING CAPACITY 124 ug/dL (250-450)
[2018-02-23 10:46] LABS: ALANINE AMINOTRANSFERASE 33 U/L (12-78); ALBUMIN 2.5 G/DL (3.4-5.0); ALBUMIN/GLOBULIN RATIO 0.7 (1.0-2.7); ALKALINE PHOSPHATASE 107 U/L (46-116); ANION GAP 2 mmol/L (5-15); ASPARTATE AMINO TRANSFERASE 31 U/L (15-37); BILIRUBIN,TOTAL 0.5 MG/DL (0.2-1.0); BLOOD UREA NITROGEN 14 mg/dL (7-18); CALCIUM 7.8 MG/DL (8.5-10.1); CARBON DIOXIDE 38 MMOL/L (21-32); CHLORIDE 100 MMOL/L (98-107); FERRITIN 806 NG/ML (8-388); POTASSIUM 2.9 MMOL/L (3.5-5.1); SODIUM 140 MMOL/L (136-145)
--- NOTE | 2018-02-23 10:46 | GI Progress Note ---
Assessment/Plan Problems: (1) Gastrojejunostomy tube dislodgement ICD Codes: Z43.4 - Encounter for attention to other artificial openings of digestive tract SNOMED: 771182838 (2) Protein calorie malnutrition ICD Codes: E46 - Unspecified protein-calorie malnutrition SNOMED: 522689297 (3) Anemia ICD Codes: D64.9 - Anemia, unspecified SNOMED: 963060233 Status: stable Status Narrative Discussed with Dr. Quigley. Assessment/Plan KUB d/w with radiologist >> GT is in the correct position with no backflow or leaks GTFs per RD GT site care daily/prn iron deficiency >> venofer OB stool r/o GI bleed monitor H&H, prn transfusions electrolyte replacement bowel regime ppi fu labs The patient was seen and examined at bedside and all new and available data was reviewed in the patients chart. I agree with the above findings, impression and plan. (Patient seen earlier today. Signature stamp does not reflect patient encounter time.). - Willian Quigley MD Subjective Subjective limited Objective Last 24 Hour Vital Signs Date Time Temp Pulse Resp B/P (MAP) Pulse Ox O2 Delivery O2 Flow Rate FiO2 02/23/18 08:00 97.5 85 20 118/54 97 Nasal Cannula 3.0 97.5 02/23/18 07:55 65 18 99 Nasal Cannula 2.0 28 02/23/18 07:44 95 Nasal Cannula 2.0 28 02/23/18 07:44 Nasal Cannula 2.0 28 02/23/18 07:44 60 18 95 Nasal Cannula 2.0 28 02/23/18 04:00 66 02/23/18 04:00 97.3 98 19 119/79 98 Nasal Cannula 3.0 97.3 02/23/18 01:12 68 18 99 Nasal Cannula 2.0 28 02/23/18 01:02 68 18 97 Nasal Cannula 2.0 28 02/23/18 00:00 65 02/23/18 00:00 96.4 99 20 114/83 96 Nasal Cannula 3.0 96.4 02/22/18 20:00 77 02/22/18 20:00 97.7 97 22 129/70 99 Nasal Cannula 3.0 97.7 02/22/18 19:06 75 18 99 Nasal Cannula 2.0 28 02/22/18 18:56 Nasal Cannula 2.0 28 02/22/18 18:56 72 18 99 Nasal Cannula 2.0 28 02/22/18 18:56 99 Nasal Cannula 2.0 28 02/22/18 16:00 97.5 75 18 125/57 97 Nasal Cannula 2.0 97.5 02/22/18 16:00 76 02/22/18 13:55 64 18 100 Nasal Cannula 2.0 28 02/22/18 13:41 67 20 99 Nasal Cannula 2.0 28 02/22/18 12:00 74 02/22/18 12:00 97.2 70 22 118/54 100 Nasal Cannula 2.0 97.2 Intake and Output 02/22/18 02/23/18 19:00 07:00 Intake Total 382.5 ml 120 ml Output Total 1000 ml 900 ml Balance -617.5 ml -780 ml IV Total 382.5 ml Tube Feeding 120 ml Output Urine Total 1000 ml 900 ml Laboratory Tests Test 02/23/18 09:40 White Blood Count 4.7 K/UL (4.8-10.8) L Red Blood Count 3.47 M/UL (4.20-5.40) L Hemoglobin 10.5 G/DL (12.0-16.0) L Hematocrit 31.7 % (37.0-47.0) L Mean Corpuscular Volume 91 FL (80-99) Mean Corpuscular Hemoglobin 30.1 PG (27.0-31.0) Mean Corpuscular Hemoglobin Concent 33.0 G/DL (32.0-36.0) Red Cell Distribution Width 12.5 % (11.6-14.8) Platelet Count 141 K/UL (150-450) L Mean Platelet Volume 8.5 FL (6.5-10.1) Neutrophils (%) (Auto) 67.6 % (45.0-75.0) Lymphocytes (%) (Auto) 21.8 % (20.0-45.0) Monocytes (%) (Auto) 9.7 % (1.0-10.0) Eosinophils (%) (Auto) 0.6 % (0.0-3.0) Basophils (%) (Auto) 0.2 % (0.0-2.0) Reticulocyte Count Pending Prothrombin Time Pending Prothromb Time International Ratio Pending Activated Partial Thromboplast Time Pending Sodium Level Pending Potassium Level Pending Chloride Level Pending Carbon Dioxide Level Pending Blood Urea Nitrogen Pending Creatinine Pending Estimat Glomerular Filtration Rate Pending Glucose Level Pending Calcium Level Pending Iron Level 16 ug/dL (50-175) L Total Iron Binding Capacity 124 ug/dL (250-450) L Percent Iron Saturation 13 % (15-50) L Unsaturated Iron Binding 108 ug/dL (112-346) L Ferritin Pending Total Bilirubin Pending Aspartate Amino Transf (AST/SGOT) Pending Alanine Aminotransferase (ALT/SGPT) Pending Alkaline Phosphatase Pending Total Protein Pending Albumin Pending Globulin Pending Carcinoembryonic Antigen Pending Vitamin B12 Level Pending Folate Pending Thyroid Stimulating Hormone (TSH) Pending Free Thyroxine Pending Height (Feet): 5 Height (Inches): 4.00 Weight (Pounds): 131 General Appearance: alert Cardiovascular: normal rate Respiratory/Chest: normal breath sounds, no respiratory distress Abdominal Exam: soft, GT site - c/d/i Hilton Goldman NP February 23, 2018 10:46
[2018-02-23 10:50] LABS: INR 2.8 (0.9-1.1)
--- NOTE | 2018-02-23 11:14 | Infectious Diseases Prog Note ---
Assessment/Plan Assessment/Plan A 1. pneumonia 2. influenza B URI 3. staph coagulase negative bacteremia 4. atrial fibrillation 5. hypertension 6- prosthetic mitral valve P 1. discontinue vancomycin iv, continue Zosyn, Tamiflu 2. repeat blood cultures Subjective ROS Limited/Unobtainable: Yes Constitutional: Reports: other - afebrile Allergies: Coded Allergies: No Known Allergies (Unverified , 02/20/18) Objective Vital Signs Last 24 Hour Vital Signs Date Time Temp Pulse Resp B/P (MAP) Pulse Ox O2 Delivery O2 Flow Rate FiO2 02/23/18 08:00 97.5 85 20 118/54 97 Nasal Cannula 3.0 97.5 02/23/18 07:55 65 18 99 Nasal Cannula 2.0 28 02/23/18 07:44 95 Nasal Cannula 2.0 28 02/23/18 07:44 Nasal Cannula 2.0 28 02/23/18 07:44 60 18 95 Nasal Cannula 2.0 28 02/23/18 04:00 66 02/23/18 04:00 97.3 98 19 119/79 98 Nasal Cannula 3.0 97.3 02/23/18 01:12 68 18 99 Nasal Cannula 2.0 28 02/23/18 01:02 68 18 97 Nasal Cannula 2.0 28 02/23/18 00:00 65 02/23/18 00:00 96.4 99 20 114/83 96 Nasal Cannula 3.0 96.4 02/22/18 20:00 77 02/22/18 20:00 97.7 97 22 129/70 99 Nasal Cannula 3.0 97.7 02/22/18 19:06 75 18 99 Nasal Cannula 2.0 28 02/22/18 18:56 Nasal Cannula 2.0 28 02/22/18 18:56 72 18 99 Nasal Cannula 2.0 28 02/22/18 18:56 99 Nasal Cannula 2.0 28 02/22/18 16:00 97.5 75 18 125/57 97 Nasal Cannula 2.0 97.5 02/22/18 16:00 76 02/22/18 13:55 64 18 100 Nasal Cannula 2.0 28 02/22/18 13:41 67 20 99 Nasal Cannula 2.0 28 02/22/18 12:00 74 02/22/18 12:00 97.2 70 22 118/54 100 Nasal Cannula 2.0 97.2 Height (Feet): 5 Height (Inches): 4.00 Weight (Pounds): 131 General Appearance: no acute distress HEENT: mucous membranes moist Respiratory/Chest: lungs clear Cardiovascular: normal rate Abdomen: soft, non tender Extremities: no edema Neurologic/Psychiatric: other - sleeping Microbiology Date/Time Source Procedure Growth Status 02/20/18 16:15 Blood Blood Culture - Preliminary Staphylococcus Epidermidis Resulted 02/20/18 16:00 Blood Blood Culture - Final Staphylococcus Epidermidis Complete 02/20/18 16:15 Nasal Nares Influenza Types A,B Antigen (EMMA) - Final Complete 02/20/18 16:00 Rectum VRE Culture - Final NO VANCOMYCIN RESISTANT ENTEROCOCCUS ... Complete Laboratory Tests Test 02/23/18 09:40 White Blood Count 4.7 K/UL (4.8-10.8) L Red Blood Count 3.47 M/UL (4.20-5.40) L Hemoglobin 10.5 G/DL (12.0-16.0) L Hematocrit 31.7 % (37.0-47.0) L Mean Corpuscular Volume 91 FL (80-99) Mean Corpuscular Hemoglobin 30.1 PG (27.0-31.0) Mean Corpuscular Hemoglobin Concent 33.0 G/DL (32.0-36.0) Red Cell Distribution Width 12.5 % (11.6-14.8) Platelet Count 141 K/UL (150-450) L Mean Platelet Volume 8.5 FL (6.5-10.1) Neutrophils (%) (Auto) 67.6 % (45.0-75.0) Lymphocytes (%) (Auto) 21.8 % (20.0-45.0) Monocytes (%) (Auto) 9.7 % (1.0-10.0) Eosinophils (%) (Auto) 0.6 % (0.0-3.0) Basophils (%) (Auto) 0.2 % (0.0-2.0) Reticulocyte Count Pending Prothrombin Time 29.4 SEC (9.30-11.50) H Prothromb Time International Ratio 2.8 (0.9-1.1) H Activated Partial Thromboplast Time 44 SEC (23-33) H Sodium Level 140 MMOL/L (136-145) Potassium Level 2.9 MMOL/L (3.5-5.1) L Chloride Level 100 MMOL/L (98-107) Carbon Dioxide Level 38 MMOL/L (21-32) H Anion Gap 2 mmol/L (5-15) L Blood Urea Nitrogen 14 mg/dL (7-18) Creatinine 1.0 MG/DL (0.55-1.30) Estimat Glomerular Filtration Rate mL/min (>60) Glucose Level 117 MG/DL (74-106) H Calcium Level 7.8 MG/DL (8.5-10.1) L Iron Level 16 ug/dL (50-175) L Total Iron Binding Capacity 124 ug/dL (250-450) L Percent Iron Saturation 13 % (15-50) L Unsaturated Iron Binding 108 ug/dL (112-346) L Ferritin 806 NG/ML (8-388) H Total Bilirubin 0.5 MG/DL (0.2-1.0) Aspartate Amino Transf (AST/SGOT) 31 U/L (15-37) Alanine Aminotransferase (ALT/SGPT) 33 U/L (12-78) Alkaline Phosphatase 107 U/L (46-116) Total Protein 6.1 G/DL (6.4-8.2) L Albumin 2.5 G/DL (3.4-5.0) L Globulin 3.6 g/dL Albumin/Globulin Ratio 0.7 (1.0-2.7) L Carcinoembryonic Antigen Pending Vitamin B12 Level Pending Folate Pending Thyroid Stimulating Hormone (TSH) 3.354 uiU/mL (0.358-3.740) Free Thyroxine 1.17 NG/DL (0.76-1.46) Current Medications Medications (Trade) Dose Ordered Sig/Lanie Route PRN Reason Start Time Stop Time Status Last Admin Dose Admin Acetaminophen/ Hydrocodone Bitart ([place] 5/325) 1 tab Q6H PRN GT For Pain 02/22/18 21:00 02/27/18 20:59 Albuterol/ Ipratropium (Albuterol/ Ipratropium) 3 ml Q4H PRN HHN Shortness of Breath 02/22/18 21:00 02/27/18 20:59 Albuterol/ Ipratropium (Albuterol/ Ipratropium) 3 ml Q6HRT HHN 02/23/18 01:00 02/26/18 00:59 02/23/18 07:44 Artificial Tears (Akwa-Tears) 1 drop Q3H PRN BOTH EYES Dry Eyes 02/22/18 21:00 03/22/18 20:59 Atorvastatin Calcium (Lipitor) 20 mg BEDTIME GT 02/22/18 21:00 03/23/18 20:59 02/22/18 22:41 Bisacodyl (Dulcolax) 10 mg DAILYPRN PRN RECTAL Constipation 02/22/18 21:00 03/24/18 20:59 Docusate Sodium (Colace) 100 mg DAILY ORAL 02/23/18 09:00 03/25/18 08:59 Furosemide (Lasix) 20 mg Q12HR IV 02/22/18 21:00 03/22/18 20:59 02/22/18 22:41 Guaifenesin (Robitussin) 300 mg Q4H PRN GT For Cough 02/22/18 21:00 03/22/18 20:59 Iron Sucrose 100 mg/Sodium Chloride 60 ml @ 240 mls/hr BEDTIME IVPB 02/23/18 21:00 02/25/18 21:14 UNV Lactobacillus Acidophilus (Culturelle) 1 tab BID GT 02/23/18 09:00 03/23/18 08:59 02/23/18 10:00 Levetiracetam (Keppra) 250 mg QHS GT 02/22/18 21:00 03/23/18 20:59 02/22/18 22:42 Levetiracetam (Keppra) 500 mg DAILY GT 02/23/18 09:00 03/23/18 08:59 02/23/18 10:02 Multivitamins (Multivitamins W/ Minerals 15ml Liquid) 15 ml DAILY GT 02/23/18 09:00 03/23/18 08:59 02/23/18 10:03 Oseltamivir Phosphate (Tamiflu) 30 mg BID ORAL 02/23/18 09:00 02/25/18 09:01 02/23/18 10:52 Pantoprazole (Protonix) 40 mg DAILY IVP 02/23/18 09:00 03/25/18 08:59 02/23/18 10:01 Piperacillin Sod/ Tazobactam Sod 3.375 gm/Sodium Chloride 110 ml @ 27.5 mls/hr EVERY 8 HOURS IVPB 02/22/18 22:00 02/25/18 23:59 02/23/18 06:01 Sennosides (Senokot) 2 tab QHS GT 02/22/18 21:00 03/23/18 21:16 02/22/18 22:40 Sertraline HCl (Zoloft) 12.5 mg DAILY GT 02/23/18 09:00 03/23/18 08:59 UNV Vancomycin HCl (Vanco rx to dose) 1 ea DAILY PRN MISC Per rx protocol 02/23/18 09:00 03/23/18 11:59 Vancomycin/Sodium Chloride 250 ml @ 166.667 mls/hr Q24H IVPB 02/23/18 18:00 02/27/18 17:59 Warfarin Sodium (Coumadin per pharmacy) 1 ea DAILY PRN MISC Per rx protocol 02/23/18 09:00 03/23/18 19:14 BASHIR RIGGS February 23, 2018 11:14
[2018-02-23 12:00] VITALS: BP 113/55
--- NOTE | 2018-02-23 15:53 | Cardiac Electrophysiology PN ---
Assessment/Plan Assessment/Plan 1. Shortness of breath. This could be secondary to congestive heart failure due to diastolic dysfunction as ejection fraction is within normal level. Continue Lasix. 2. Paroxysmal atrial fibrillation, on Coumadin with INR goal of 2 to 3. Remained in SR on tele. 3. Severe hypokalemia with potassium 2.9. Potassium will be replaced. 4. Dysphagia, status post PEG 5. Chronic obstructive pulmonary disease, on vancomycin 6. Advanced dementia. DW RN Subjective Subjective Nonverbal. No new events. Comfortable. GT feeding ongoing Objective Last 24 Hour Vital Signs Date Time Temp Pulse Resp B/P (MAP) Pulse Ox O2 Delivery O2 Flow Rate FiO2 02/23/18 13:52 63 18 99 Nasal Cannula 2.0 28 02/23/18 13:43 69 18 95 Nasal Cannula 2.0 28 02/23/18 12:00 97.2 59 20 113/55 99 Nasal Cannula 3.0 97.2 02/23/18 12:00 57 02/23/18 08:00 60 02/23/18 08:00 97.5 85 20 118/54 97 Nasal Cannula 3.0 97.5 02/23/18 07:55 65 18 99 Nasal Cannula 2.0 28 02/23/18 07:44 95 Nasal Cannula 2.0 28 02/23/18 07:44 Nasal Cannula 2.0 28 02/23/18 07:44 60 18 95 Nasal Cannula 2.0 28 02/23/18 04:00 66 02/23/18 04:00 97.3 98 19 119/79 98 Nasal Cannula 3.0 97.3 02/23/18 01:12 68 18 99 Nasal Cannula 2.0 28 02/23/18 01:02 68 18 97 Nasal Cannula 2.0 28 02/23/18 00:00 65 02/23/18 00:00 96.4 99 20 114/83 96 Nasal Cannula 3.0 96.4 02/22/18 20:00 77 02/22/18 20:00 97.7 97 22 129/70 99 Nasal Cannula 3.0 97.7 02/22/18 19:06 75 18 99 Nasal Cannula 2.0 28 02/22/18 18:56 Nasal Cannula 2.0 28 02/22/18 18:56 72 18 99 Nasal Cannula 2.0 28 02/22/18 18:56 99 Nasal Cannula 2.0 28 02/22/18 16:00 97.5 75 18 125/57 97 Nasal Cannula 2.0 97.5 02/22/18 16:00 76 Intake and Output 02/22/18 02/23/18 19:00 07:00 Intake Total 382.5 ml 120 ml Output Total 1000 ml 900 ml Balance -617.5 ml -780 ml IV Total 382.5 ml Tube Feeding 120 ml Output Urine Total 1000 ml 900 ml Laboratory Tests Test 02/23/18 09:40 02/23/18 10:53 White Blood Count 4.7 K/UL (4.8-10.8) L Red Blood Count 3.47 M/UL (4.20-5.40) L Hemoglobin 10.5 G/DL (12.0-16.0) L Hematocrit 31.7 % (37.0-47.0) L Mean Corpuscular Volume 91 FL (80-99) Mean Corpuscular Hemoglobin 30.1 PG (27.0-31.0) Mean Corpuscular Hemoglobin Concent 33.0 G/DL (32.0-36.0) Red Cell Distribution Width 12.5 % (11.6-14.8) Platelet Count 141 K/UL (150-450) L Mean Platelet Volume 8.5 FL (6.5-10.1) Neutrophils (%) (Auto) 67.6 % (45.0-75.0) Lymphocytes (%) (Auto) 21.8 % (20.0-45.0) Monocytes (%) (Auto) 9.7 % (1.0-10.0) Eosinophils (%) (Auto) 0.6 % (0.0-3.0) Basophils (%) (Auto) 0.2 % (0.0-2.0) Reticulocyte Count 0.3 % (0.0-2.0) Prothrombin Time 29.4 SEC (9.30-11.50) H Prothromb Time International Ratio 2.8 (0.9-1.1) H Activated Partial Thromboplast Time 44 SEC (23-33) H Sodium Level 140 MMOL/L (136-145) Potassium Level 2.9 MMOL/L (3.5-5.1) L Chloride Level 100 MMOL/L (98-107) Carbon Dioxide Level 38 MMOL/L (21-32) H Anion Gap 2 mmol/L (5-15) L Blood Urea Nitrogen 14 mg/dL (7-18) Creatinine 1.0 MG/DL (0.55-1.30) Estimat Glomerular Filtration Rate mL/min (>60) Glucose Level 117 MG/DL (74-106) H Calcium Level 7.8 MG/DL (8.5-10.1) L Iron Level 16 ug/dL (50-175) L Total Iron Binding Capacity 124 ug/dL (250-450) L Percent Iron Saturation 13 % (15-50) L Unsaturated Iron Binding 108 ug/dL (112-346) L Ferritin 806 NG/ML (8-388) H Total Bilirubin 0.5 MG/DL (0.2-1.0) Aspartate Amino Transf (AST/SGOT) 31 U/L (15-37) Alanine Aminotransferase (ALT/SGPT) 33 U/L (12-78) Alkaline Phosphatase 107 U/L (46-116) Total Protein 6.1 G/DL (6.4-8.2) L Albumin 2.5 G/DL (3.4-5.0) L Globulin 3.6 g/dL Albumin/Globulin Ratio 0.7 (1.0-2.7) L Carcinoembryonic Antigen Pending Vitamin B12 Level > 2000 PG/ML (193-986) H Folate 33.1 NG/ML (8.6-58.9) Thyroid Stimulating Hormone (TSH) 3.354 uiU/mL (0.358-3.740) Free Thyroxine 1.17 NG/DL (0.76-1.46) Stool Occult Blood Negative (NEGATIVE) Microbiology Date/Time Source Procedure Growth Status 02/20/18 16:15 Blood Blood Culture - Preliminary Staphylococcus Epidermidis Resulted 02/20/18 16:00 Blood Blood Culture - Final Staphylococcus Epidermidis Complete 02/20/18 16:15 Nasal Nares Influenza Types A,B Antigen (EMMA) - Final Complete 02/20/18 16:00 Nasal Nares MRSA Culture - Final NO METHICILLIN RESISTANT STAPH AUREUS... Complete 02/20/18 16:00 Rectum VRE Culture - Final NO VANCOMYCIN RESISTANT ENTEROCOCCUS ... Complete Objective HEAD AND NECK: No JVD. LUNGS: Coarse rhonchi. CARDIOVASCULAR: Regular S1 and S2 with no gallop or murmur. ABDOMEN: Status post G-tube. EXTREMITIES: 1+ pitting edema. Arslan Fowler MD February 23, 2018 15:53
[2018-02-23 16:00] VITALS: BP 114/50
[2018-02-23] MEDS ORDERED: Warfarin Sodium 1mg ORAL ONE (17:00)
[2018-02-23] MEDS ORDERED: Vancomycin 750mg/NS 250ml 250 ML IVPB SCH (18:00)
[2018-02-23 20:00] VITALS: BP 114/53
[2018-02-23] MEDS: Sennosides 8.6mg GT SCH (21:47)
[2018-02-23] MEDS: Atorvastatin 20mg tab GT SCH (21:47)
[2018-02-23] MEDS: Iron Sucrose 100 MG in NS 55 ML IV SCH (21:49)
--- NOTE | 2018-02-23 22:23 | General Progress Note ---
Assessment/Plan Assessment/Plan chf influenza b fevers afib artificial valve diuresis on nc pulmonary eval appreciated pulmonary hygiene on tamiflu on abx cards eval from Dr Fowler gi eval appreciated Subjective Allergies: Coded Allergies: No Known Allergies (Unverified , 02/20/18) Subjective seen in am more alet on nasal canula now has some swelling around gtube site see by dr lopez Objective Last 24 Hour Vital Signs Date Time Temp Pulse Resp B/P (MAP) Pulse Ox O2 Delivery O2 Flow Rate FiO2 02/23/18 19:57 62 18 99 Nasal Cannula 2.0 28 02/23/18 19:47 97 Nasal Cannula 2.0 28 02/23/18 19:47 Nasal Cannula 2.0 28 02/23/18 19:47 66 18 97 Nasal Cannula 2.0 28 02/23/18 16:00 97.6 73 20 114/50 99 Nasal Cannula 3.0 97.6 02/23/18 16:00 62 02/23/18 13:52 63 18 99 Nasal Cannula 2.0 28 02/23/18 13:43 69 18 95 Nasal Cannula 2.0 28 02/23/18 12:00 97.2 59 20 113/55 99 Nasal Cannula 3.0 97.2 02/23/18 12:00 57 02/23/18 08:00 60 02/23/18 08:00 97.5 85 20 118/54 97 Nasal Cannula 3.0 97.5 02/23/18 07:55 65 18 99 Nasal Cannula 2.0 28 02/23/18 07:44 95 Nasal Cannula 2.0 28 02/23/18 07:44 Nasal Cannula 2.0 28 02/23/18 07:44 60 18 95 Nasal Cannula 2.0 28 02/23/18 04:00 66 02/23/18 04:00 97.3 98 19 119/79 98 Nasal Cannula 3.0 97.3 02/23/18 01:12 68 18 99 Nasal Cannula 2.0 28 02/23/18 01:02 68 18 97 Nasal Cannula 2.0 28 02/23/18 00:00 65 02/23/18 00:00 96.4 99 20 114/83 96 Nasal Cannula 3.0 96.4 Intake and Output 02/22/18 02/23/18 19:00 07:00 Intake Total 382.5 ml 120 ml Output Total 1000 ml 900 ml Balance -617.5 ml -780 ml IV Total 382.5 ml Tube Feeding 120 ml Output Urine Total 1000 ml 900 ml Laboratory Tests 02/23/18 09:40: White Blood Count 4.7L, Red Blood Count 3.47L, Hemoglobin 10.5L, Hematocrit 31.7L, Mean Corpuscular Volume 91, Mean Corpuscular Hemoglobin 30.1, Mean Corpuscular Hemoglobin Concent 33.0, Red Cell Distribution Width 12.5, Platelet Count 141L, Mean Platelet Volume 8.5, Neutrophils (%) (Auto) 67.6, Lymphocytes ( %) (Auto) 21.8, Monocytes (%) (Auto) 9.7, Eosinophils (%) (Auto) 0.6, Basophils (%) (Auto) 0.2, Reticulocyte Count 0.3, Prothrombin Time 29.4H, Prothromb Time International Ratio 2.8H, Activated Partial Thromboplast Time 44H, Sodium Level 140, Potassium Level 2.9L, Chloride Level 100, Carbon Dioxide Level 38H, Anion Gap 2L, Blood Urea Nitrogen 14, Creatinine 1.0, Estimat Glomerular Filtration Rate , Glucose Level 117H, Calcium Level 7.8L, Iron Level 16L, Total Iron Binding Capacity 124L, Percent Iron Saturation 13L, Unsaturated Iron Binding 108L, Ferritin 806H, Total Bilirubin 0.5, Aspartate Amino Transf (AST/SGOT) 31, Alanine Aminotransferase (ALT/SGPT) 33, Alkaline Phosphatase 107, Total Protein 6.1L, Albumin 2.5L, Globulin 3.6, Albumin/Globulin Ratio 0.7L, Carcinoembryonic Antigen [Pending], Vitamin B12 Level > 2000H, Folate 33.1, Thyroid Stimulating Hormone (TSH) 3.354, Free Thyroxine 1.17 02/23/18 10:53: Stool Occult Blood Negative Height (Feet): 5 Height (Inches): 4.00 Weight (Pounds): 131 General Appearance: WD/WN, no apparent distress Neck: supple Cardiovascular: irregularly irregular Respiratory/Chest: rhonchi - bilaterally Abdomen: soft Objective pos gtube slight swellin on the left iside of it no leakage noted contracteded le 1 plus edema hemiparesis Darrion Obrien MD February 23, 2018 22:23
[2018-02-24] VITALS: BP 127/62
[2018-02-24] MEDS: Albuterol/Ipratropium 3ml neb HHN SCH ×4 (01:33→20:04)
[2018-02-24 04:00] VITALS: BP 122/71
[2018-02-24] MEDS: Piperacillin/Tazobactam 3.375 GM in NS 110 ML IVPB SCH (05:11)
[2018-02-24 08:00] VITALS: BP 112/50
[2018-02-24 08:56] LABS: BASOPHILS % (AUTO) 0.6 % (0.0-2.0); EOSINOPHILS % (AUTO) 1.5 % (0.0-3.0); HEMOGLOBIN 10.4 G/DL (12.0-16.0); LYMPHOCYTES % (AUTO) 21.6 % (20.0-45.0); MEAN CORPUSCULAR VOLUME 92 FL (80-99); MONOCYTES % (AUTO) 8.3 % (1.0-10.0); NEUTROPHILS % (AUTO) 68.1 % (45.0-75.0); PLATELET COUNT 160 K/UL (150-450); RED BLOOD COUNT 3.49 M/UL (4.20-5.40); WHITE BLOOD COUNT 5.3 K/UL (4.8-10.8)
[2018-02-24 09:09] LABS: INR 2.3 (0.9-1.1)
[2018-02-24] MEDS: Pantoprazole Inj IVP SCH (09:11)
[2018-02-24] MEDS: Multivitamins W/Minerals 15 ML UDC GT SCH (09:11)
[2018-02-24] MEDS: levETIRAcetam 500mg/5ml Liquid GT SCH ×2 (09:12→21:18)
[2018-02-24] MEDS: Lactobacillus-GG tablet GT SCH ×2 (09:12→17:42)
[2018-02-24 09:23] LABS: ANION GAP 2 mmol/L (5-15); BLOOD UREA NITROGEN 14 mg/dL (7-18); CALCIUM 8.1 MG/DL (8.5-10.1); CARBON DIOXIDE 37 MMOL/L (21-32); CHLORIDE 102 MMOL/L (98-107); POTASSIUM 3.9 MMOL/L (3.5-5.1); SODIUM 141 MMOL/L (136-145)
[2018-02-24] MEDS: Docusate 100mg cap ORAL SCH (09:50)
--- NOTE | 2018-02-24 10:09 | Pulmonology Progress Note ---
Assessment/Plan Problems: (1) CHF (congestive heart failure) (2) Influenza B (3) Bronchospasm (4) Pulmonary edema (5) Fever (6) UTI (urinary tract infection) (7) Staphylococcus aureus bacteremia (8) Gastrostomy tube in place (9) CVA (cerebral vascular accident) Assessment/Plan -Optimize pulmonary hygiene/mobilize as tolerated -Titrate down FiO2 to keep SaO2 > 90% -RTC and PRN HHN's -Zosyn (D5), Tamiflu (D5) per ID, F/U repeat CX's -Monitor volumes and renal function -Diuresis as able -F/U cards recs -TF's as tolerated -Continue A/C -DNAR/DNI, BiPAP ok Subjective Allergies: Coded Allergies: No Known Allergies (Unverified , 02/20/18) Subjective -200, AFVSS,stable O2 needs No change in MS No F/C, no cough, no SOB, kameron TF's Objective Last 24 Hour Vital Signs Date Time Temp Pulse Resp B/P (MAP) Pulse Ox O2 Delivery O2 Flow Rate FiO2 02/24/18 08:31 88 22 99 Nasal Cannula 2.0 28 02/24/18 08:28 98 Nasal Cannula 2.0 28 02/24/18 08:28 Nasal Cannula 2.0 28 02/24/18 04:00 70 02/24/18 04:00 96.8 79 19 122/71 98 Nasal Cannula 3.0 96.8 02/24/18 01:43 68 18 99 Nasal Cannula 2.0 28 02/24/18 01:33 69 18 99 Nasal Cannula 2.0 28 02/24/18 00:00 75 02/24/18 00:00 97.6 83 22 127/62 99 Nasal Cannula 3.0 97.6 02/23/18 20:00 65 02/23/18 20:00 98.3 66 22 114/53 100 Nasal Cannula 3.0 98.3 02/23/18 19:57 62 18 99 Nasal Cannula 2.0 28 02/23/18 19:47 97 Nasal Cannula 2.0 28 02/23/18 19:47 Nasal Cannula 2.0 28 02/23/18 19:47 66 18 97 Nasal Cannula 2.0 28 02/23/18 16:00 97.6 73 20 114/50 99 Nasal Cannula 3.0 97.6 5/24/18 16:00 62 02/23/18 13:52 63 18 99 Nasal Cannula 2.0 28 02/23/18 13:43 69 18 95 Nasal Cannula 2.0 28 02/23/18 12:00 97.2 59 20 113/55 99 Nasal Cannula 3.0 97.2 02/23/18 12:00 57 Intake and Output 02/23/18 02/24/18 19:00 07:00 Intake Total 400 ml Output Total 600 ml Balance -600 ml 400 ml Tube Feeding 400 ml Output Urine Total 600 ml # Voids 1 # Bowel Movements 1 General Appearance: no acute distress, cachetic HEENT: normocephalic, atraumatic, anicteric, mucous membranes moist Respiratory/Chest: chest wall non-tender, lungs clear, normal breath sounds, no respiratory distress Cardiovascular: normal peripheral pulses, normal rate, regular rhythm Abdomen: normal bowel sounds, soft, non tender, no organomegaly, non distended , no mass, other - GT CDI Extremities: no cyanosis, no clubbing, no edema Laboratory Tests 02/23/18 10:53: Stool Occult Blood Negative 02/24/18 08:25: White Blood Count 5.3, Red Blood Count 3.49L, Hemoglobin 10.4L, Hematocrit 32.0L , Mean Corpuscular Volume 92, Mean Corpuscular Hemoglobin 29.8, Mean Corpuscular Hemoglobin Concent 32.5, Red Cell Distribution Width 13.0, Platelet Count 160, Mean Platelet Volume 7.5, Neutrophils (%) (Auto) 68.1, Lymphocytes (% ) (Auto) 21.6, Monocytes (%) (Auto) 8.3, Eosinophils (%) (Auto) 1.5, Basophils ( %) (Auto) 0.6, Prothrombin Time 24.1H, Prothromb Time International Ratio 2.3H, Sodium Level 141, Potassium Level 3.9, Chloride Level 102, Carbon Dioxide Level 37H, Anion Gap 2L, Blood Urea Nitrogen 14, Creatinine 1.0, Estimat Glomerular Filtration Rate , Glucose Level 103, Calcium Level 8.1L Current Medications Medications (Trade) Dose Ordered Sig/Lanie Route PRN Reason Start Time Stop Time Status Last Admin Dose Admin Acetaminophen/ Hydrocodone Bitart ([place] 5/325) 1 tab Q6H PRN GT For Pain 02/22/18 21:00 5/28/18 20:59 Albuterol/ Ipratropium (Albuterol/ Ipratropium) 3 ml Q4H PRN HHN Shortness of Breath 02/22/18 21:00 02/27/18 20:59 Albuterol/ Ipratropium (Albuterol/ Ipratropium) 3 ml Q6HRT HHN 02/23/18 01:00 02/26/18 00:59 02/24/18 08:30 Artificial Tears (Akwa-Tears) 1 drop Q3H PRN BOTH EYES Dry Eyes 02/22/18 21:00 03/22/18 20:59 Atorvastatin Calcium (Lipitor) 20 mg BEDTIME GT 02/22/18 21:00 03/23/18 20:59 02/23/18 21:47 Bisacodyl (Dulcolax) 10 mg DAILYPRN PRN RECTAL Constipation 02/22/18 21:00 03/24/18 20:59 Docusate Sodium (Colace) 100 mg DAILY ORAL 02/23/18 09:00 03/25/18 08:59 Furosemide (Lasix) 20 mg Q12HR IV 02/22/18 21:00 03/22/18 20:59 02/24/18 09:11 Guaifenesin (Robitussin) 300 mg Q4H PRN GT For Cough 02/22/18 21:00 03/22/18 20:59 Iron Sucrose 100 mg/Sodium Chloride 60 ml @ 240 mls/hr BEDTIME IV 02/23/18 21:00 02/25/18 21:14 02/23/18 21:49 Lactobacillus Acidophilus (Culturelle) 1 tab BID GT 02/23/18 09:00 03/23/18 08:59 02/24/18 09:12 Levetiracetam (Keppra) 250 mg QHS GT 02/22/18 21:00 03/23/18 20:59 02/23/18 21:48 Levetiracetam (Keppra) 500 mg DAILY GT 02/23/18 09:00 03/23/18 08:59 02/24/18 09:12 Multivitamins (Multivitamins W/ Minerals 15ml Liquid) 15 ml DAILY GT 02/23/18 09:00 03/23/18 08:59 02/24/18 09:11 Oseltamivir Phosphate (Tamiflu) 30 mg BID ORAL 02/23/18 09:00 02/25/18 09:01 02/24/18 09:15 Pantoprazole (Protonix) 40 mg DAILY IVP 02/23/18 09:00 03/25/18 08:59 02/24/18 09:11 Piperacillin Sod/ Tazobactam Sod 3.375 gm/Sodium Chloride 110 ml @ 27.5 mls/hr EVERY 8 HOURS IVPB 02/22/18 22:00 02/25/18 23:59 02/24/18 05:11 Sennosides (Senokot) 2 tab QHS GT 02/22/18 21:00 03/23/18 21:16 02/23/18 21:47 Sertraline HCl (Zoloft) 12.5 mg DAILY GT 02/23/18 09:00 03/23/18 08:59 UNV Warfarin Sodium (Coumadin per pharmacy) 1 ea DAILY PRN MISC Per rx protocol 02/23/18 09:00 03/23/18 19:14 Warfarin Sodium (Coumadin) 2 mg COUMADIN ORAL 02/24/18 17:00 02/24/18 18:30 NAEEM HUNTLEY M.D. February 24, 2018 10:09
--- NOTE | 2018-02-24 10:53 | Infectious Diseases Prog Note ---
Assessment/Plan Assessment/Plan antibiotics : zosyn, tamiflu A 1. coag neg staph sepsis r/o PVE 2. influenza B URI 3. anemia 4. atrial fibrillation 5. hypertension P 1. continue tamiflu until tomorrow 2. d/c zosyn 3. start iv vancomycin 4. will follow up cultures Subjective ROS Limited/Unobtainable: Yes Allergies: Coded Allergies: No Known Allergies (Unverified , 02/20/18) Objective Vital Signs Last 24 Hour Vital Signs Date Time Temp Pulse Resp B/P (MAP) Pulse Ox O2 Delivery O2 Flow Rate FiO2 02/24/18 08:41 76 20 99 Nasal Cannula 2.0 28 02/24/18 08:31 88 22 99 Nasal Cannula 2.0 28 02/24/18 08:28 98 Nasal Cannula 2.0 28 02/24/18 08:28 Nasal Cannula 2.0 28 02/24/18 04:00 70 02/24/18 04:00 96.8 79 19 122/71 98 Nasal Cannula 3.0 96.8 02/24/18 01:43 68 18 99 Nasal Cannula 2.0 28 02/24/18 01:33 69 18 99 Nasal Cannula 2.0 28 02/24/18 00:00 75 02/24/18 00:00 97.6 83 22 127/62 99 Nasal Cannula 3.0 97.6 02/23/18 20:00 65 02/23/18 20:00 98.3 66 22 114/53 100 Nasal Cannula 3.0 98.3 02/23/18 19:57 62 18 99 Nasal Cannula 2.0 28 02/23/18 19:47 97 Nasal Cannula 2.0 28 02/23/18 19:47 Nasal Cannula 2.0 28 02/23/18 19:47 66 18 97 Nasal Cannula 2.0 28 02/23/18 16:00 97.6 73 20 114/50 99 Nasal Cannula 3.0 97.6 02/23/18 16:00 62 02/23/18 13:52 63 18 99 Nasal Cannula 2.0 28 02/23/18 13:43 69 18 95 Nasal Cannula 2.0 28 02/23/18 12:00 97.2 59 20 113/55 99 Nasal Cannula 3.0 97.2 02/23/18 12:00 57 Height (Feet): 5 Height (Inches): 4.00 Weight (Pounds): 132 Respiratory/Chest: lungs clear Cardiovascular: normal rate, regular rhythm, no gallop/murmur Abdomen: soft, non tender, other - GT Extremities: no edema Laboratory Tests Test 02/23/18 10:53 02/24/18 08:25 Stool Occult Blood Negative (NEGATIVE) White Blood Count 5.3 K/UL (4.8-10.8) Red Blood Count 3.49 M/UL (4.20-5.40) L Hemoglobin 10.4 G/DL (12.0-16.0) L Hematocrit 32.0 % (37.0-47.0) L Mean Corpuscular Volume 92 FL (80-99) Mean Corpuscular Hemoglobin 29.8 PG (27.0-31.0) Mean Corpuscular Hemoglobin Concent 32.5 G/DL (32.0-36.0) Red Cell Distribution Width 13.0 % (11.6-14.8) Platelet Count 160 K/UL (150-450) Mean Platelet Volume 7.5 FL (6.5-10.1) Neutrophils (%) (Auto) 68.1 % (45.0-75.0) Lymphocytes (%) (Auto) 21.6 % (20.0-45.0) Monocytes (%) (Auto) 8.3 % (1.0-10.0) Eosinophils (%) (Auto) 1.5 % (0.0-3.0) Basophils (%) (Auto) 0.6 % (0.0-2.0) Prothrombin Time 24.1 SEC (9.30-11.50) H Prothromb Time International Ratio 2.3 (0.9-1.1) H Sodium Level 141 MMOL/L (136-145) Potassium Level 3.9 MMOL/L (3.5-5.1) Chloride Level 102 MMOL/L (98-107) Carbon Dioxide Level 37 MMOL/L (21-32) H Anion Gap 2 mmol/L (5-15) L Blood Urea Nitrogen 14 mg/dL (7-18) Creatinine 1.0 MG/DL (0.55-1.30) Estimat Glomerular Filtration Rate mL/min (>60) Glucose Level 103 MG/DL (74-106) Calcium Level 8.1 MG/DL (8.5-10.1) L Current Medications Medications (Trade) Dose Ordered Sig/Lanie Route PRN Reason Start Time Stop Time Status Last Admin Dose Admin Acetaminophen/ Hydrocodone Bitart ([place] 5/325) 1 tab Q6H PRN GT For Pain 02/22/18 21:00 02/27/18 20:59 Albuterol/ Ipratropium (Albuterol/ Ipratropium) 3 ml Q4H PRN HHN Shortness of Breath 02/22/18 21:00 02/27/18 20:59 Albuterol/ Ipratropium (Albuterol/ Ipratropium) 3 ml Q6HRT HHN 02/23/18 01:00 02/26/18 00:59 02/24/18 08:30 Artificial Tears ([place]-Tears) 1 drop Q3H PRN BOTH EYES Dry Eyes 02/22/18 21:00 03/22/18 20:59 Atorvastatin Calcium (Lipitor) 20 mg BEDTIME GT 02/22/18 21:00 03/23/18 20:59 02/23/18 21:47 Bisacodyl (Dulcolax) 10 mg DAILYPRN PRN RECTAL Constipation 02/22/18 21:00 03/24/18 20:59 Docusate Sodium (Colace) 100 mg DAILY ORAL 02/23/18 09:00 03/25/18 08:59 Furosemide (Lasix) 20 mg Q12HR IV 02/22/18 21:00 03/22/18 20:59 02/24/18 09:11 Guaifenesin (Robitussin) 300 mg Q4H PRN GT For Cough 02/22/18 21:00 03/22/18 20:59 Iron Sucrose 100 mg/Sodium Chloride 60 ml @ 240 mls/hr BEDTIME IV 02/23/18 21:00 02/25/18 21:14 02/23/18 21:49 Lactobacillus Acidophilus (Culturelle) 1 tab BID GT 02/23/18 09:00 03/23/18 08:59 02/24/18 09:12 Levetiracetam (Keppra) 250 mg QHS GT 02/22/18 21:00 03/23/18 20:59 02/23/18 21:48 Levetiracetam (Keppra) 500 mg DAILY GT 02/23/18 09:00 03/23/18 08:59 02/24/18 09:12 Multivitamins (Multivitamins W/ Minerals 15ml Liquid) 15 ml DAILY GT 02/23/18 09:00 03/23/18 08:59 02/24/18 09:11 Oseltamivir Phosphate (Tamiflu) 30 mg BID ORAL 02/23/18 09:00 02/25/18 09:01 02/24/18 09:15 Pantoprazole (Protonix) 40 mg DAILY IVP 02/23/18 09:00 03/25/18 08:59 02/24/18 09:11 Piperacillin Sod/ Tazobactam Sod 3.375 gm/Sodium Chloride 110 ml @ 27.5 mls/hr EVERY 8 HOURS IVPB 02/22/18 22:00 02/25/18 23:59 02/24/18 05:11 Sennosides (Senokot) 2 tab QHS GT 02/22/18 21:00 03/23/18 21:16 02/23/18 21:47 Sertraline HCl (Zoloft) 12.5 mg DAILY GT 02/23/18 09:00 03/23/18 08:59 UNV Warfarin Sodium (Coumadin per pharmacy) 1 ea DAILY PRN MISC Per rx protocol 02/23/18 09:00 03/23/18 19:14 Warfarin Sodium (Coumadin) 2 mg COUMADIN ORAL 02/24/18 17:00 02/24/18 18:30 VIOLETA VOGEL February 24, 2018 10:53
--- NOTE | 2018-02-24 11:53 | GI Progress Note ---
Assessment/Plan Problems: (1) Gastrojejunostomy tube dislodgement ICD Codes: Z43.4 - Encounter for attention to other artificial openings of digestive tract SNOMED: 044394257 (2) Protein calorie malnutrition ICD Codes: E46 - Unspecified protein-calorie malnutrition SNOMED: 193864862 (3) Anemia ICD Codes: D64.9 - Anemia, unspecified SNOMED: 252162148 Status: stable Status Narrative Discussed with Dr. Quigley. Assessment/Plan KUB d/w with radiologist >> GT is in the correct position with no backflow or leaks OB stool negative GTFs per RD GT site care daily/prn iron deficiency >> venofer monitor H&H, prn transfusions electrolyte replacement bowel regime ppi fu labs The patient was seen and examined at bedside and all new and available data was reviewed in the patients chart. I agree with the above findings, impression and plan. (Patient seen earlier today. Signature stamp does not reflect patient encounter time.). - Willian Quigley MD Subjective Subjective limited Objective Last 24 Hour Vital Signs Date Time Temp Pulse Resp B/P (MAP) Pulse Ox O2 Delivery O2 Flow Rate FiO2 02/24/18 08:41 76 20 99 Nasal Cannula 2.0 28 02/24/18 08:31 88 22 99 Nasal Cannula 2.0 28 02/24/18 08:28 98 Nasal Cannula 2.0 28 02/24/18 08:28 Nasal Cannula 2.0 28 02/24/18 04:00 70 02/24/18 04:00 96.8 79 19 122/71 98 Nasal Cannula 3.0 96.8 02/24/18 01:43 68 18 99 Nasal Cannula 2.0 28 02/24/18 01:33 69 18 99 Nasal Cannula 2.0 28 02/24/18 00:00 75 02/24/18 00:00 97.6 83 22 127/62 99 Nasal Cannula 3.0 97.6 02/23/18 20:00 65 02/23/18 20:00 98.3 66 22 114/53 100 Nasal Cannula 3.0 98.3 02/23/18 19:57 62 18 99 Nasal Cannula 2.0 28 02/23/18 19:47 97 Nasal Cannula 2.0 28 02/23/18 19:47 Nasal Cannula 2.0 28 02/23/18 19:47 66 18 97 Nasal Cannula 2.0 28 02/23/18 16:00 97.6 73 20 114/50 99 Nasal Cannula 3.0 97.6 02/23/18 16:00 62 02/23/18 13:52 63 18 99 Nasal Cannula 2.0 28 02/23/18 13:43 69 18 95 Nasal Cannula 2.0 28 02/23/18 12:00 97.2 59 20 113/55 99 Nasal Cannula 3.0 97.2 02/23/18 12:00 57 Intake and Output 02/23/18 02/24/18 19:00 07:00 Intake Total 400 ml Output Total 600 ml Balance -600 ml 400 ml Tube Feeding 400 ml Output Urine Total 600 ml # Voids 1 # Bowel Movements 1 Laboratory Tests Test 02/24/18 08:25 White Blood Count 5.3 K/UL (4.8-10.8) Red Blood Count 3.49 M/UL (4.20-5.40) L Hemoglobin 10.4 G/DL (12.0-16.0) L Hematocrit 32.0 % (37.0-47.0) L Mean Corpuscular Volume 92 FL (80-99) Mean Corpuscular Hemoglobin 29.8 PG (27.0-31.0) Mean Corpuscular Hemoglobin Concent 32.5 G/DL (32.0-36.0) Red Cell Distribution Width 13.0 % (11.6-14.8) Platelet Count 160 K/UL (150-450) Mean Platelet Volume 7.5 FL (6.5-10.1) Neutrophils (%) (Auto) 68.1 % (45.0-75.0) Lymphocytes (%) (Auto) 21.6 % (20.0-45.0) Monocytes (%) (Auto) 8.3 % (1.0-10.0) Eosinophils (%) (Auto) 1.5 % (0.0-3.0) Basophils (%) (Auto) 0.6 % (0.0-2.0) Prothrombin Time 24.1 SEC (9.30-11.50) H Prothromb Time International Ratio 2.3 (0.9-1.1) H Sodium Level 141 MMOL/L (136-145) Potassium Level 3.9 MMOL/L (3.5-5.1) Chloride Level 102 MMOL/L (98-107) Carbon Dioxide Level 37 MMOL/L (21-32) H Anion Gap 2 mmol/L (5-15) L Blood Urea Nitrogen 14 mg/dL (7-18) Creatinine 1.0 MG/DL (0.55-1.30) Estimat Glomerular Filtration Rate mL/min (>60) Glucose Level 103 MG/DL (74-106) Calcium Level 8.1 MG/DL (8.5-10.1) L Height (Feet): 5 Height (Inches): 4.00 Weight (Pounds): 132 General Appearance: WD/WN, no apparent distress, alert, thin Cardiovascular: normal rate Respiratory/Chest: normal breath sounds, no respiratory distress Abdominal Exam: normal bowel sounds, non tender, soft, GT site - c/d/i Extremities: non-tender Hilton Goldman NP February 24, 2018 11:53
[2018-02-24 12:00] VITALS: BP 132/58
--- NOTE | 2018-02-24 13:45 | Cardiac Electrophysiology PN ---
Assessment/Plan Assessment/Plan 1. Shortness of breath. Secondary to congestive heart failure due to diastolic dysfunction. Ejection fraction is within normal level. Continue Lasix. 2. Paroxysmal atrial fibrillation, on Coumadin with INR goal of 2 to 3. Remained in SR on tele. 3. Severe hypokalemia with potassium 2.9. Potassium was be replaced again 4. Dysphagia, status post PEG 5. Chronic obstructive pulmonary disease, on vancomycin 6. Advanced dementia. KATHY RN Subjective Subjective Nonverbal. No new events. Comfortable in NAD. In SR on tele. Objective Last 24 Hour Vital Signs Date Time Temp Pulse Resp B/P (MAP) Pulse Ox O2 Delivery O2 Flow Rate FiO2 02/24/18 08:41 76 20 99 Nasal Cannula 2.0 28 02/24/18 08:31 88 22 99 Nasal Cannula 2.0 28 02/24/18 08:28 98 Nasal Cannula 2.0 28 02/24/18 08:28 Nasal Cannula 2.0 28 02/24/18 04:00 70 02/24/18 04:00 96.8 79 19 122/71 98 Nasal Cannula 3.0 96.8 02/24/18 01:43 68 18 99 Nasal Cannula 2.0 28 02/24/18 01:33 69 18 99 Nasal Cannula 2.0 28 02/24/18 00:00 75 02/24/18 00:00 97.6 83 22 127/62 99 Nasal Cannula 3.0 97.6 02/23/18 20:00 65 02/23/18 20:00 98.3 66 22 114/53 100 Nasal Cannula 3.0 98.3 02/23/18 19:57 62 18 99 Nasal Cannula 2.0 28 02/23/18 19:47 97 Nasal Cannula 2.0 28 02/23/18 19:47 Nasal Cannula 2.0 28 02/23/18 19:47 66 18 97 Nasal Cannula 2.0 28 02/23/18 16:00 97.6 73 20 114/50 99 Nasal Cannula 3.0 97.6 02/23/18 16:00 62 02/23/18 13:52 63 18 99 Nasal Cannula 2.0 28 Intake and Output 02/23/18 02/24/18 19:00 07:00 Intake Total 400 ml Output Total 600 ml Balance -600 ml 400 ml Tube Feeding 400 ml Output Urine Total 600 ml # Voids 1 # Bowel Movements 1 Laboratory Tests Test 02/24/18 08:25 White Blood Count 5.3 K/UL (4.8-10.8) Red Blood Count 3.49 M/UL (4.20-5.40) L Hemoglobin 10.4 G/DL (12.0-16.0) L Hematocrit 32.0 % (37.0-47.0) L Mean Corpuscular Volume 92 FL (80-99) Mean Corpuscular Hemoglobin 29.8 PG (27.0-31.0) Mean Corpuscular Hemoglobin Concent 32.5 G/DL (32.0-36.0) Red Cell Distribution Width 13.0 % (11.6-14.8) Platelet Count 160 K/UL (150-450) Mean Platelet Volume 7.5 FL (6.5-10.1) Neutrophils (%) (Auto) 68.1 % (45.0-75.0) Lymphocytes (%) (Auto) 21.6 % (20.0-45.0) Monocytes (%) (Auto) 8.3 % (1.0-10.0) Eosinophils (%) (Auto) 1.5 % (0.0-3.0) Basophils (%) (Auto) 0.6 % (0.0-2.0) Prothrombin Time 24.1 SEC (9.30-11.50) H Prothromb Time International Ratio 2.3 (0.9-1.1) H Sodium Level 141 MMOL/L (136-145) Potassium Level 3.9 MMOL/L (3.5-5.1) Chloride Level 102 MMOL/L (98-107) Carbon Dioxide Level 37 MMOL/L (21-32) H Anion Gap 2 mmol/L (5-15) L Blood Urea Nitrogen 14 mg/dL (7-18) Creatinine 1.0 MG/DL (0.55-1.30) Estimat Glomerular Filtration Rate mL/min (>60) Glucose Level 103 MG/DL (74-106) Calcium Level 8.1 MG/DL (8.5-10.1) L Objective HEAD AND NECK: No JVD. LUNGS: Coarse rhonchi. CARDIOVASCULAR: Regular S1 and S2 with no gallop or murmur. ABDOMEN: Status post G-tube. EXTREMITIES: 1+ pitting edema. Arslan Fowler MD February 24, 2018 13:45
[2018-02-24] MEDS: Vancomycin 1gm/D5W 275ml IVPB SCH ×2 (15:21)
[2018-02-24 16:00] VITALS: BP 114/59
--- NOTE | 2018-02-24 16:51 | Diagnostic Imaging Report ---
Indication: Reason For Exam: F/U Technique: Supine view of the abdomen after injection of water-soluble contrast into gastrostomy Comparison: 02/22/2018 Findings: Contrast opacifies the stomach. No contrast extravasation is demonstrated. Contrast refluxes into the distal esophagus The bowel gas pattern is unremarkable. There is an inferior vena cava filter and unusual masses or calcifications Impression: Satisfactory position of gastrostomy tube
[2018-02-24] MEDS ORDERED: Warfarin Sodium 2mg ORAL SCH (17:00)
[2018-02-24 20:00] VITALS: BP 138/74
[2018-02-24] MEDS: Atorvastatin 20mg tab GT SCH (21:17)
[2018-02-24] MEDS: Iron Sucrose 100 MG in NS 55 ML IV SCH (21:17)
[2018-02-24] MEDS: Sennosides 8.6mg GT SCH (21:17)
--- NOTE | 2018-02-24 21:45 | General Progress Note ---
Assessment/Plan Assessment/Plan chf influenza b fevers afib artificial valve diuresis on nc pulmonary eval appreciated pulmonary hygiene on tamiflu on abx cards eval from Dr Fowler appreciated gi eval appreciated Subjective Allergies: Coded Allergies: No Known Allergies (Unverified , 02/20/18) Subjective seen in am more alert on nasal canula Objective Last 24 Hour Vital Signs Date Time Temp Pulse Resp B/P (MAP) Pulse Ox O2 Delivery O2 Flow Rate FiO2 02/24/18 20:12 77 18 99 Room Air 21 02/24/18 20:00 77 18 97 Room Air 21 02/24/18 20:00 97 Room Air 21 02/24/18 20:00 21 02/24/18 20:00 Room Air 21 02/24/18 16:00 98.0 81 20 114/59 89 Room Air 3.0 98.0 02/24/18 16:00 80 02/24/18 14:10 78 20 99 Nasal Cannula 2.0 28 02/24/18 14:00 70 20 95 Room Air 02/24/18 12:00 69 02/24/18 12:00 98.6 80 20 132/58 90 Room Air 3.0 98.6 02/24/18 08:41 76 20 99 Nasal Cannula 2.0 28 02/24/18 08:31 88 22 99 Nasal Cannula 2.0 28 02/24/18 08:28 98 Nasal Cannula 2.0 28 02/24/18 08:28 Nasal Cannula 2.0 28 02/24/18 08:00 74 02/24/18 08:00 98.2 78 20 112/50 95 Room Air 3.0 98.2 02/24/18 04:00 70 02/24/18 04:00 96.8 79 19 122/71 98 Nasal Cannula 3.0 96.8 02/24/18 01:43 68 18 99 Nasal Cannula 2.0 28 02/24/18 01:33 69 18 99 Nasal Cannula 2.0 28 02/24/18 00:00 75 02/24/18 00:00 97.6 83 22 127/62 99 Nasal Cannula 3.0 97.6 Intake and Output 02/23/18 02/24/18 19:00 07:00 Intake Total 400 ml Output Total 600 ml Balance -600 ml 400 ml Tube Feeding 400 ml Output Urine Total 600 ml # Voids 1 # Bowel Movements 1 Laboratory Tests 02/24/18 08:25: White Blood Count 5.3, Red Blood Count 3.49L, Hemoglobin 10.4L, Hematocrit 32.0L , Mean Corpuscular Volume 92, Mean Corpuscular Hemoglobin 29.8, Mean Corpuscular Hemoglobin Concent 32.5, Red Cell Distribution Width 13.0, Platelet Count 160, Mean Platelet Volume 7.5, Neutrophils (%) (Auto) 68.1, Lymphocytes (% ) (Auto) 21.6, Monocytes (%) (Auto) 8.3, Eosinophils (%) (Auto) 1.5, Basophils ( %) (Auto) 0.6, Prothrombin Time 24.1H, Prothromb Time International Ratio 2.3H, Sodium Level 141, Potassium Level 3.9, Chloride Level 102, Carbon Dioxide Level 37H, Anion Gap 2L, Blood Urea Nitrogen 14, Creatinine 1.0, Estimat Glomerular Filtration Rate , Glucose Level 103, Calcium Level 8.1L Height (Feet): 5 Height (Inches): 4.00 Weight (Pounds): 132 General Appearance: WD/WN Neck: supple Cardiovascular: irregularly irregular Respiratory/Chest: crackles/rales Abdomen: soft Objective pos gtube slight swellin on the left iside of it no leakage noted contracteded le 1 plus edema hemiparesis Darrion Obrien MD February 24, 2018 21:45
[2018-02-25] VITALS: BP 125/61
[2018-02-25] MEDS: Albuterol/Ipratropium 3ml neb HHN SCH ×4 (01:32→20:06)
[2018-02-25 04:00] VITALS: BP 112/68
[2018-02-25 08:00] VITALS: BP 128/83
[2018-02-25 08:07] LABS: HEMATOCRIT 34.8 % (37.0-47.0); HEMOGLOBIN 11.5 G/DL (12.0-16.0); MEAN CORPUSCULAR VOLUME 90 FL (80-99); PLATELET COUNT 194 K/UL (150-450); RED BLOOD COUNT 3.86 M/UL (4.20-5.40); RED CELL DISTRIBUTION WIDTH 12.7 % (11.6-14.8); WHITE BLOOD COUNT 6.2 K/UL (4.8-10.8)
[2018-02-25 08:17] LABS: ANION GAP 4 mmol/L (5-15); BLOOD UREA NITROGEN 15 mg/dL (7-18); CALCIUM 8.6 MG/DL (8.5-10.1); CARBON DIOXIDE 36 MMOL/L (21-32); CHLORIDE 98 MMOL/L (98-107); INR 1.9 (0.9-1.1); POTASSIUM 3.7 MMOL/L (3.5-5.1); SODIUM 138 MMOL/L (136-145)
[2018-02-25] MEDS: Multivitamins W/Minerals 15 ML UDC GT SCH (09:58)
[2018-02-25] MEDS: Lactobacillus-GG tablet GT SCH ×2 (09:58→17:14)
[2018-02-25] MEDS: levETIRAcetam 500mg/5ml Liquid GT SCH ×2 (09:58→21:03)
[2018-02-25] MEDS: Docusate 100mg cap ORAL SCH (09:58)
[2018-02-25] MEDS: Sertraline 50mg tab GT SCH (09:58)
[2018-02-25] MEDS: Pantoprazole Inj IVP SCH (09:59)
[2018-02-25] MEDS ORDERED: NS 275ml ONE ×2 (11:06→11:19)
[2018-02-25] MEDS ORDERED: Tubing IV Secondary IV ONE ×2 (11:06→11:19)
[2018-02-25] MEDS ORDERED: Sterile Water Irrig 1000ml IRRIG ONE (11:06)
[2018-02-25] MEDS ORDERED: NS 500ML ONE (11:19)
[2018-02-25] MEDS ORDERED: 1/2 NS 1000ml IV ONE (11:19)
[2018-02-25 12:00] VITALS: BP 131/59
[2018-02-25] MEDS: Vancomycin 1gm/D5W 275ml IVPB SCH ×2 (14:58)
--- NOTE | 2018-02-25 15:05 | Cardiac Electrophysiology PN ---
Assessment/Plan Assessment/Plan 1. Shortness of breath. Secondary to CHF due to diastolic dysfunction. Ejection fraction is within normal level. Continue Lasix. 2. Paroxysmal atrial fibrillation, on Coumadin with INR goal of 2 to 3. INR today 1.9 Remained in SR on tele. 3. NSVT 13 beats. Nl EF no IL. No syncope. 4. Severe hypokalemia with potassium 2.9. Potassium was replaced 5. Dysphagia, status post PEG 6. Chronic obstructive pulmonary disease, on vancomycin 7. Advanced dementia. KATHY RN Subjective Subjective Had 13 beats of NSVT overnight. Comfortable in NAD. In SR Objective Last 24 Hour Vital Signs Date Time Temp Pulse Resp B/P (MAP) Pulse Ox O2 Delivery O2 Flow Rate FiO2 02/25/18 13:45 21 02/25/18 13:45 80 18 99 Room Air 21 02/25/18 13:35 78 18 95 Room Air 21 02/25/18 12:03 85 02/25/18 12:00 97.8 84 18 131/59 93 Room Air 97.8 02/25/18 08:03 91 02/25/18 08:00 98.2 94 19 128/83 95 Room Air 98.2 02/25/18 07:25 21 02/25/18 07:25 78 18 99 Room Air 21 02/25/18 07:19 96 Room Air 21 02/25/18 07:19 Room Air 21 02/25/18 07:17 75 18 96 Room Air 21 02/25/18 04:00 96.6 91 20 112/68 96 Room Air 96.6 02/25/18 04:00 90 02/25/18 01:46 79 18 99 Room Air 21 02/25/18 01:30 21 02/25/18 01:30 81 18 97 Room Air 21 02/25/18 00:00 98.4 79 18 125/61 98 Room Air 98.4 02/24/18 20:12 77 18 99 Room Air 21 02/24/18 20:00 98.1 84 19 138/74 99 Room Air 98.1 02/24/18 20:00 76 02/24/18 20:00 77 18 97 Room Air 21 02/24/18 20:00 97 Room Air 21 02/24/18 20:00 21 02/24/18 20:00 Room Air 21 5/25/18 16:00 98.0 81 20 114/59 89 Room Air 3.0 98.0 02/24/18 16:00 80 Intake and Output 02/24/18 02/25/18 19:00 07:00 # Voids 2 # Bowel Movements 2 Laboratory Tests Test 02/25/18 07:40 White Blood Count 6.2 K/UL (4.8-10.8) Red Blood Count 3.86 M/UL (4.20-5.40) L Hemoglobin 11.5 G/DL (12.0-16.0) L Hematocrit 34.8 % (37.0-47.0) L Mean Corpuscular Volume 90 FL (80-99) Mean Corpuscular Hemoglobin 29.9 PG (27.0-31.0) Mean Corpuscular Hemoglobin Concent 33.2 G/DL (32.0-36.0) Red Cell Distribution Width 12.7 % (11.6-14.8) Platelet Count 194 K/UL (150-450) Mean Platelet Volume 6.7 FL (6.5-10.1) Neutrophils (%) (Auto) % (45.0-75.0) Lymphocytes (%) (Auto) % (20.0-45.0) Monocytes (%) (Auto) % (1.0-10.0) Eosinophils (%) (Auto) % (0.0-3.0) Basophils (%) (Auto) % (0.0-2.0) Differential Total Cells Counted 100 Neutrophils % (Manual) 62 % (45-75) Lymphocytes % (Manual) 32 % (20-45) Monocytes % (Manual) 5 % (1-10) Eosinophils % (Manual) 1 % (0-3) Basophils % (Manual) 0 % (0-2) Band Neutrophils 0 % (0-8) Platelet Estimate Adequate Platelet Morphology Normal Anisocytosis 1+ Prothrombin Time 20.2 SEC (9.30-11.50) H Prothromb Time International Ratio 1.9 (0.9-1.1) H Sodium Level 138 MMOL/L (136-145) Potassium Level 3.7 MMOL/L (3.5-5.1) Chloride Level 98 MMOL/L (98-107) Carbon Dioxide Level 36 MMOL/L (21-32) H Anion Gap 4 mmol/L (5-15) L Blood Urea Nitrogen 15 mg/dL (7-18) Creatinine 1.0 MG/DL (0.55-1.30) Estimat Glomerular Filtration Rate mL/min (>60) Glucose Level 133 MG/DL (74-106) H Calcium Level 8.6 MG/DL (8.5-10.1) Magnesium Level 1.9 MG/DL (1.5-2.4) Microbiology Date/Time Source Procedure Growth Status 02/23/18 15:10 Blood Blood Culture - Preliminary NO GROWTH AFTER 24 HOURS Resulted 02/23/18 14:55 Blood Blood Culture - Preliminary NO GROWTH AFTER 24 HOURS Resulted Objective HEAD AND NECK: No JVD. LUNGS: Coarse rhonchi. CARDIOVASCULAR: Regular S1 and S2 with no gallop or murmur. ABDOMEN: G-tube intact EXTREMITIES: 1+ pitting edema. Arslan Fowler MD February 25, 2018 15:05
[2018-02-25 16:00] VITALS: BP 135/62
[2018-02-25] MEDS ORDERED: Warfarin Sodium 2.5mg ORAL ONE (17:00)
--- NOTE | 2018-02-25 17:01 | General Progress Note ---
Assessment/Plan Assessment/Plan chf influenza b fevers afib artificial valve diuresis on nc pulmonary eval appreciated pulmonary hygiene on tamiflu on abx cards eval from Dr Fowler appreciated gi eval appreciated Subjective Allergies: Coded Allergies: No Known Allergies (Unverified , 02/20/18) Subjective awake alert more comortable Objective Last 24 Hour Vital Signs Date Time Temp Pulse Resp B/P (MAP) Pulse Ox O2 Delivery O2 Flow Rate FiO2 02/25/18 15:37 93 02/25/18 13:45 21 02/25/18 13:45 80 18 99 Room Air 21 02/25/18 13:35 78 18 95 Room Air 21 02/25/18 12:03 85 02/25/18 12:00 97.8 84 18 131/59 93 Room Air 97.8 02/25/18 08:03 91 02/25/18 08:00 98.2 94 19 128/83 95 Room Air 98.2 02/25/18 07:25 21 02/25/18 07:25 78 18 99 Room Air 21 02/25/18 07:19 96 Room Air 21 02/25/18 07:19 Room Air 21 02/25/18 07:17 75 18 96 Room Air 21 02/25/18 04:00 96.6 91 20 112/68 96 Room Air 96.6 02/25/18 04:00 90 02/25/18 01:46 79 18 99 Room Air 21 02/25/18 01:30 21 02/25/18 01:30 81 18 97 Room Air 21 02/25/18 00:00 98.4 79 18 125/61 98 Room Air 98.4 02/24/18 20:12 77 18 99 Room Air 21 02/24/18 20:00 98.1 84 19 138/74 99 Room Air 98.1 02/24/18 20:00 76 02/24/18 20:00 77 18 97 Room Air 21 02/24/18 20:00 97 Room Air 21 02/24/18 20:00 21 02/24/18 20:00 Room Air 21 Intake and Output 02/24/18 02/25/18 19:00 07:00 # Voids 2 # Bowel Movements 2 Laboratory Tests 02/25/18 07:40: White Blood Count 6.2, Red Blood Count 3.86L, Hemoglobin 11.5L, Hematocrit 34.8L , Mean Corpuscular Volume 90, Mean Corpuscular Hemoglobin 29.9, Mean Corpuscular Hemoglobin Concent 33.2, Red Cell Distribution Width 12.7, Platelet Count 194, Mean Platelet Volume 6.7, Neutrophils (%) (Auto) , Lymphocytes (%) ( Auto) , Monocytes (%) (Auto) , Eosinophils (%) (Auto) , Basophils (%) (Auto) , Differential Total Cells Counted 100, Neutrophils % (Manual) 62, Lymphocytes % ( Manual) 32, Monocytes % (Manual) 5, Eosinophils % (Manual) 1, Basophils % ( Manual) 0, Band Neutrophils 0, Platelet Estimate Adequate, Platelet Morphology Normal, Anisocytosis 1+, Prothrombin Time 20.2H, Prothromb Time International Ratio 1.9H, Sodium Level 138, Potassium Level 3.7, Chloride Level 98, Carbon Dioxide Level 36H, Anion Gap 4L, Blood Urea Nitrogen 15, Creatinine 1.0, Estimat Glomerular Filtration Rate , Glucose Level 133H, Calcium Level 8.6, Magnesium Level 1.9 Height (Feet): 5 Height (Inches): 4.00 Weight (Pounds): 127 General Appearance: WD/WN Neck: supple Cardiovascular: irregularly irregular Respiratory/Chest: crackles/rales Abdomen: soft Objective pos gtube slight swellin on the left iside of it no leakage noted contracteded le 1 plus edema hemiparesis Darrion Obrien MD February 25, 2018 17:00
[2018-02-25 20:00] VITALS: BP 129/71
[2018-02-25] MEDS: Iron Sucrose 100 MG in NS 55 ML IV SCH (21:03)
[2018-02-25] MEDS: Sennosides 8.6mg GT SCH (21:03)
[2018-02-25] MEDS: Atorvastatin 20mg tab GT SCH (21:04)
[2018-02-26] VITALS: BP 102/62
[2018-02-26 04:00] VITALS: BP 116/56
--- NOTE | 2018-02-26 07:46 | Pulmonology Progress Note ---
Assessment/Plan Assessment/Plan PUlmonary Progress Note date: 02/25/18 Assessment/Plan Problems: (1) CHF (congestive heart failure) (2) Influenza B (3) Bronchospasm (4) Pulmonary edema (5) Fever (6) UTI (urinary tract infection) (7) Staphylococcus aureus bacteremia (8) Gastrostomy tube in place (9) CVA (cerebral vascular accident) Assessment/Plan -Optimize pulmonary hygiene/mobilize as tolerated -Titrate down FiO2 to keep SaO2 > 90% -RTC and PRN HHN's -Zosyn (D5), Tamiflu (D5) per ID, F/U repeat CX's -Monitor volumes and renal function -Diuresis as able -F/U cards recs -TF's as tolerated -Continue A/C -DNAR/DNI, BiPAP ok Subjective Allergies: Coded Allergies: No Known Allergies (Unverified , 02/20/18) Subjective -200, AFVSS,stable O2 needs No change in MS No F/C, no cough, no SOB, kameron TF's Objective Last 24 Hour Vital Signs Date Time Temp Pulse Resp B/P (MAP) Pulse Ox O2 Delivery O2 Flow Rate FiO2 02/24/18 08:31 88 22 99 Nasal Cannula 2.0 28 02/24/18 08:28 98 Nasal Cannula 2.0 28 02/24/18 08:28 Nasal Cannula 2.0 28 02/24/18 04:00 70 02/24/18 04:00 96.8 79 19 122/71 98 Nasal Cannula 3.0 96.8 02/24/18 01:43 68 18 99 Nasal Cannula 2.0 28 02/24/18 01:33 69 18 99 Nasal Cannula 2.0 28 02/24/18 00:00 75 02/24/18 00:00 97.6 83 22 127/62 99 Nasal Cannula 3.0 97.6 02/23/18 20:00 65 02/23/18 20:00 98.3 66 22 114/53 100 Nasal Cannula 3.0 98.3 02/23/18 19:57 62 18 99 Nasal Cannula 2.0 28 02/23/18 19:47 97 Nasal Cannula 2.0 28 02/23/18 19:47 Nasal Cannula 2.0 28 02/23/18 19:47 66 18 97 Nasal Cannula 2.0 28 02/23/18 16:00 97.6 73 20 114/50 99 Nasal Cannula 3.0 97.6 02/23/18 16:00 62 02/23/18 13:52 63 18 99 Nasal Cannula 2.0 28 02/23/18 13:43 69 18 95 Nasal Cannula 2.0 28 02/23/18 12:00 97.2 59 20 113/55 99 Nasal Cannula 3.0 97.2 02/23/18 12:00 57 Intake and Output 02/23/18 02/24/18 19:00 07:00 Intake Total 400 ml Output Total 600 ml Balance -600 ml 400 ml Tube Feeding 400 ml Output Urine Total 600 ml # Voids 1 # Bowel Movements 1 General Appearance: no acute distress, cachetic HEENT: normocephalic, atraumatic, anicteric, mucous membranes moist Respiratory/Chest: chest wall non-tender, lungs clear, normal breath sounds, no respiratory distress Cardiovascular: normal peripheral pulses, normal rate, regular rhythm Abdomen: normal bowel sounds, soft, non tender, no organomegaly, non distended , no mass, other - GT CDI Extremities: no cyanosis, no clubbing, no edema Laboratory Tests 02/23/18 10:53: Stool Occult Blood Negative 02/24/18 08:25: White Blood Count 5.3, Red Blood Count 3.49L, Hemoglobin 10.4L, Hematocrit 32.0L , Mean Corpuscular Volume 92, Mean Corpuscular Hemoglobin 29.8, Mean Corpuscular Hemoglobin Concent 32.5, Red Cell Distribution Width 13.0, Platelet Count 160, Mean Platelet Volume 7.5, Neutrophils (%) (Auto) 68.1, Lymphocytes (% ) (Auto) 21.6, Monocytes (%) (Auto) 8.3, Eosinophils (%) (Auto) 1.5, Basophils ( %) (Auto) 0.6, Prothrombin Time 24.1H, Prothromb Time International Ratio 2.3H, Sodium Level 141, Potassium Level 3.9, Chloride Level 102, Carbon Dioxide Level 37H, Anion Gap 2L, Blood Urea Nitrogen 14, Creatinine 1.0, Estimat Glomerular Filtration Rate , Glucose Level 103, Calcium Level 8.1L Current Medications Medications (Trade) Dose Ordered Sig/Lanie Route PRN Reason Start Time Stop Time Status Last Admin Dose Admin Acetaminophen/ Hydrocodone Bitart ([place] 5/325) 1 tab Q6H PRN GT For Pain 02/22/18 21:00 02/27/18 20:59 Albuterol/ Ipratropium (Albuterol/ Ipratropium) 3 ml Q4H PRN HHN Shortness of Breath 02/22/18 21:00 02/27/18 20:59 Albuterol/ Ipratropium (Albuterol/ Ipratropium) 3 ml Q6HRT HHN 02/23/18 01:00 02/26/18 00:59 02/24/18 08:30 Artificial Tears (Akwa-Tears) 1 drop Q3H PRN BOTH EYES Dry Eyes 02/22/18 21:00 03/22/18 20:59 Atorvastatin Calcium (Lipitor) 20 mg BEDTIME GT 02/22/18 21:00 03/23/18 20:59 02/23/18 21:47 Bisacodyl (Dulcolax) 10 mg DAILYPRN PRN RECTAL Constipation 02/22/18 21:00 03/24/18 20:59 Docusate Sodium (Colace) 100 mg DAILY ORAL 02/23/18 09:00 03/25/18 08:59 Furosemide (Lasix) 20 mg Q12HR IV 02/22/18 21:00 03/22/18 20:59 02/24/18 09:11 Guaifenesin (Robitussin) 300 mg Q4H PRN GT For Cough 02/22/18 21:00 03/22/18 20:59 Iron Sucrose 100 mg/Sodium Chloride 60 ml @ 240 mls/hr BEDTIME IV 02/23/18 21:00 02/25/18 21:14 02/23/18 21:49 Lactobacillus Acidophilus (Culturelle) 1 tab BID GT 02/23/18 09:00 03/23/18 08:59 02/24/18 09:12 Levetiracetam (Keppra) 250 mg QHS GT 02/22/18 21:00 03/23/18 20:59 02/23/18 21:48 Levetiracetam (Keppra) 500 mg DAILY GT 02/23/18 09:00 03/23/18 08:59 02/24/18 09:12 Multivitamins (Multivitamins W/ Minerals 15ml Liquid) 15 ml DAILY GT 02/23/18 09:00 03/23/18 08:59 02/24/18 09:11 Oseltamivir Phosphate (Tamiflu) 30 mg BID ORAL 02/23/18 09:00 02/25/18 09:01 02/24/18 09:15 Pantoprazole (Protonix) 40 mg DAILY IVP 02/23/18 09:00 03/25/18 08:59 02/24/18 09:11 Piperacillin Sod/ Tazobactam Sod 3.375 gm/Sodium Chloride 110 ml @ 27.5 mls/hr EVERY 8 HOURS IVPB 02/22/18 22:00 02/25/18 23:59 02/24/18 05:11 Sennosides (Senokot) 2 tab QHS GT 02/22/18 21:00 03/23/18 21:16 02/23/18 21:47 Sertraline HCl (Zoloft) 12.5 mg DAILY GT 02/23/18 09:00 03/23/18 08:59 UNV Warfarin Sodium (Coumadin per pharmacy) 1 ea DAILY PRN MISC Per rx protocol 02/23/18 09:00 03/23/18 19:14 Warfarin Sodium (Coumadin) 2 mg COUMADIN ORAL 02/24/18 17:00 02/24/18 18:30 Patient seen 02/25/2018 Subjective Allergies: Coded Allergies: No Known Allergies (Unverified , 02/20/18) Objective Last 24 Hour Vital Signs Date Time Temp Pulse Resp B/P (MAP) Pulse Ox O2 Delivery O2 Flow Rate FiO2 02/26/18 04:00 75 02/26/18 04:00 97.9 80 20 116/56 93 Room Air 97.9 02/26/18 00:00 97.7 82 20 102/62 94 Room Air 97.7 02/26/18 00:00 82 02/25/18 20:00 97.0 87 20 129/71 95 Room Air 97.0 02/25/18 20:00 81 02/25/18 19:27 87 18 98 Room Air 21 02/25/18 19:17 88 18 96 Room Air 21 02/25/18 19:17 21 02/25/18 19:03 96 Room Air 21 02/25/18 19:03 Room Air 21 5/26/18 19:03 88 20 Room Air 21 02/25/18 16:00 97.9 90 18 135/62 94 Room Air 97.9 02/25/18 15:37 93 02/25/18 13:45 21 02/25/18 13:45 80 18 99 Room Air 21 02/25/18 13:35 78 18 95 Room Air 21 02/25/18 12:03 85 02/25/18 12:00 97.8 84 18 131/59 93 Room Air 97.8 02/25/18 08:03 91 02/25/18 08:00 98.2 94 19 128/83 95 Room Air 98.2 Intake and Output 02/25/18 02/26/18 19:00 07:00 Intake Total 650 ml 860 ml Output Total 1 ml Balance 649 ml 860 ml Intake Free Water 100 ml 200 ml IV Total 60 ml Tube Feeding 550 ml 600 ml Stool Total 1 ml # Voids 3 2 # Bowel Movements 1 Microbiology Date/Time Source Procedure Growth Status 02/23/18 15:10 Blood Blood Culture - Preliminary NO GROWTH AFTER 24 HOURS Resulted 02/23/18 14:55 Blood Blood Culture - Preliminary NO GROWTH AFTER 24 HOURS Resulted Current Medications Medications (Trade) Dose Ordered Sig/Lanie Route PRN Reason Start Time Stop Time Status Last Admin Dose Admin Acetaminophen/ Hydrocodone Bitart ([place] 5/325) 1 tab Q6H PRN GT For Pain 02/22/18 21:00 02/27/18 20:59 Albuterol/ Ipratropium (Albuterol/ Ipratropium) 3 ml Q4H PRN HHN Shortness of Breath 02/22/18 21:00 02/27/18 20:59 Artificial Tears (Akwa-Tears) 1 drop Q3H PRN BOTH EYES Dry Eyes 02/22/18 21:00 03/22/18 20:59 Atorvastatin Calcium (Lipitor) 20 mg BEDTIME GT 02/22/18 21:00 03/23/18 20:59 02/25/18 21:04 Bisacodyl (Dulcolax) 10 mg DAILYPRN PRN RECTAL Constipation 02/22/18 21:00 03/24/18 20:59 Docusate Sodium (Colace) 100 mg DAILY ORAL 02/23/18 09:00 03/25/18 08:59 02/25/18 09:58 Furosemide (Lasix) 20 mg Q12HR IV 02/22/18 21:00 03/22/18 20:59 02/25/18 21:04 Guaifenesin (Robitussin) 300 mg Q4H PRN GT For Cough 02/22/18 21:00 03/22/18 20:59 Lactobacillus Acidophilus (Culturelle) 1 tab BID GT 02/23/18 09:00 03/23/18 08:59 02/25/18 17:14 Levetiracetam (Keppra) 250 mg QHS GT 02/22/18 21:00 03/23/18 20:59 02/25/18 21:03 Levetiracetam (Keppra) 500 mg DAILY GT 02/23/18 09:00 03/23/18 08:59 02/25/18 09:58 Multivitamins (Multivitamins W/ Minerals 15ml Liquid) 15 ml DAILY GT 02/23/18 09:00 03/23/18 08:59 02/25/18 09:58 Pantoprazole (Protonix) 40 mg DAILY IVP 02/23/18 09:00 03/25/18 08:59 02/25/18 09:59 Sennosides (Senokot) 2 tab QHS GT 02/22/18 21:00 03/23/18 21:16 02/25/18 21:03 Sertraline HCl (Zoloft) 25 mg Q48H GT 02/25/18 09:00 03/27/18 08:59 02/25/18 09:58 Vancomycin HCl (Vanco rx to dose) 1 ea DAILY PRN MISC Per rx protocol 02/24/18 11:00 03/26/18 10:59 Vancomycin HCl 1 gm/Dextrose 275 ml @ 183.708 mls/hr Q24H IVPB 02/24/18 14:00 03/01/18 13:59 02/25/18 14:58 Warfarin Sodium (Coumadin per pharmacy) 1 ea DAILY PRN MISC Per rx protocol 02/23/18 09:00 03/23/18 19:14 Singh Arango MD February 26, 2018 07:46
[2018-02-26 08:00] VITALS: BP 121/49
[2018-02-26 08:14] LABS: INR 1.7 (0.9-1.1)
[2018-02-26] MEDS: Lactobacillus-GG tablet GT SCH ×2 (08:51→17:50)
[2018-02-26] MEDS: Pantoprazole Inj IVP SCH (08:51)
[2018-02-26] MEDS: Docusate 100mg cap ORAL SCH (08:52)
[2018-02-26] MEDS: Multivitamins W/Minerals 15 ML UDC GT SCH (08:52)
[2018-02-26] MEDS: levETIRAcetam 500mg/5ml Liquid GT SCH ×2 (08:52→22:23)
--- NOTE | 2018-02-26 11:57 | Infectious Diseases Prog Note ---
Assessment/Plan Assessment/Plan A 1. pneumonia treated 2. influenza B URI treated 3. staph coagulase negative bacteremia 4. atrial fibrillation 5. hypertension 6- prosthetic mitral valve P 1. continue vancomycin iv, Subjective ROS Limited/Unobtainable: Yes Allergies: Coded Allergies: No Known Allergies (Unverified , 02/20/18) Objective Vital Signs Last 24 Hour Vital Signs Date Time Temp Pulse Resp B/P (MAP) Pulse Ox O2 Delivery O2 Flow Rate FiO2 02/26/18 08:00 98.0 78 18 121/49 92 Room Air 98.0 02/26/18 07:59 75 02/26/18 04:00 75 02/26/18 04:00 97.9 80 20 116/56 93 Room Air 97.9 02/26/18 00:00 97.7 82 20 102/62 94 Room Air 97.7 02/26/18 00:00 82 02/25/18 20:00 97.0 87 20 129/71 95 Room Air 97.0 02/25/18 20:00 81 02/25/18 19:27 87 18 98 Room Air 21 02/25/18 19:17 88 18 96 Room Air 21 02/25/18 19:17 21 02/25/18 19:03 96 Room Air 21 02/25/18 19:03 Room Air 21 02/25/18 19:03 88 20 Room Air 21 02/25/18 16:00 97.9 90 18 135/62 94 Room Air 97.9 02/25/18 15:37 93 02/25/18 13:45 21 02/25/18 13:45 80 18 99 Room Air 21 02/25/18 13:35 78 18 95 Room Air 21 02/25/18 12:03 85 02/25/18 12:00 97.8 84 18 131/59 93 Room Air 97.8 Height (Feet): 5 Height (Inches): 4.00 Weight (Pounds): 137 General Appearance: no acute distress HEENT: mucous membranes moist Respiratory/Chest: lungs clear Cardiovascular: normal rate Abdomen: soft, non tender, other - GT feeding Extremities: no edema Neurologic/Psychiatric: unresponsiveness Microbiology Date/Time Source Procedure Growth Status 02/23/18 15:10 Blood Blood Culture - Preliminary NO GROWTH AFTER 48 HOURS Resulted 02/23/18 14:55 Blood Blood Culture - Preliminary NO GROWTH AFTER 48 HOURS Resulted Laboratory Tests Test 02/26/18 07:45 Prothrombin Time 17.4 SEC (9.30-11.50) H Prothromb Time International Ratio 1.7 (0.9-1.1) H Current Medications Medications (Trade) Dose Ordered Sig/Lanie Route PRN Reason Start Time Stop Time Status Last Admin Dose Admin Acetaminophen/ Hydrocodone Bitart ([place] 5/325) 1 tab Q6H PRN GT For Pain 02/22/18 21:00 02/27/18 20:59 Albuterol/ Ipratropium (Albuterol/ Ipratropium) 3 ml Q4H PRN HHN Shortness of Breath 02/22/18 21:00 02/27/18 20:59 Artificial Tears ([place]-Tears) 1 drop Q3H PRN BOTH EYES Dry Eyes 02/22/18 21:00 03/22/18 20:59 Atorvastatin Calcium (Lipitor) 20 mg BEDTIME GT 02/22/18 21:00 03/23/18 20:59 02/25/18 21:04 Bisacodyl (Dulcolax) 10 mg DAILYPRN PRN RECTAL Constipation 02/22/18 21:00 03/24/18 20:59 Docusate Sodium (Colace) 100 mg DAILY ORAL 02/23/18 09:00 03/25/18 08:59 02/26/18 08:52 Furosemide (Lasix) 20 mg Q12HR IV 02/22/18 21:00 03/22/18 20:59 02/26/18 08:52 Guaifenesin (Robitussin) 300 mg Q4H PRN GT For Cough 02/22/18 21:00 03/22/18 20:59 Lactobacillus Acidophilus (Culturelle) 1 tab BID GT 02/23/18 09:00 03/23/18 08:59 02/26/18 08:51 Levetiracetam (Keppra) 250 mg QHS GT 02/22/18 21:00 03/23/18 20:59 02/25/18 21:03 Levetiracetam (Keppra) 500 mg DAILY GT 02/23/18 09:00 03/23/18 08:59 02/26/18 08:52 Multivitamins (Multivitamins W/ Minerals 15ml Liquid) 15 ml DAILY GT 02/23/18 09:00 03/23/18 08:59 02/26/18 08:52 Pantoprazole (Protonix) 40 mg DAILY IVP 02/23/18 09:00 03/25/18 08:59 02/26/18 08:51 Sennosides (Senokot) 2 tab QHS GT 02/22/18 21:00 03/23/18 21:16 02/25/18 21:03 Sertraline HCl (Zoloft) 25 mg Q48H GT 02/25/18 09:00 03/27/18 08:59 02/25/18 09:58 Vancomycin HCl (Vanco rx to dose) 1 ea DAILY PRN MISC Per rx protocol 02/24/18 11:00 03/26/18 10:59 Vancomycin HCl 1 gm/Dextrose 275 ml @ 183.708 mls/hr Q24H IVPB 02/24/18 14:00 03/01/18 13:59 02/25/18 14:58 Warfarin Sodium (Coumadin per pharmacy) 1 ea DAILY PRN MISC Per rx protocol 02/23/18 09:00 03/23/18 19:14 Warfarin Sodium (Coumadin) 3 mg COUMADIN ONCE ORAL 02/26/18 17:00 02/26/18 17:01 BASHIR RIGGS February 26, 2018 11:57
[2018-02-26 12:00] VITALS: BP 108/71
[2018-02-26 16:00] VITALS: BP 120/76
[2018-02-26] MEDS ORDERED: Warfarin Sodium 3mg ORAL ONE (17:00)
[2018-02-26 20:00] VITALS: BP 97/60
[2018-02-26] MEDS: Atorvastatin 20mg tab GT SCH (22:23)
[2018-02-26] MEDS: Sennosides 8.6mg GT SCH (22:24)
[2018-02-27] VITALS: BP 122/52
[2018-02-27 04:00] VITALS: BP 118/55
[2018-02-27 08:00] VITALS: BP 108/49
[2018-02-27] MEDS: Docusate 100mg cap ORAL SCH (09:10)
[2018-02-27] MEDS: Multivitamins W/Minerals 15 ML UDC GT SCH (09:10)
[2018-02-27] MEDS: Lactobacillus-GG tablet GT SCH ×2 (09:10→17:32)
[2018-02-27] MEDS: Sertraline 50mg tab GT SCH (09:10)
[2018-02-27] MEDS: Pantoprazole Inj IVP SCH (09:10)
[2018-02-27] MEDS: levETIRAcetam 500mg/5ml Liquid GT SCH ×2 (09:10→20:28)
[2018-02-27] MEDS: Vancomycin 750mg/NS 250ml IVPB SCH (09:16)
[2018-02-27 09:30] LABS: INR 1.6 (0.9-1.1)
[2018-02-27 09:34] LABS: BLOOD UREA NITROGEN 28 mg/dL (7-18); CREATININE 1.1 MG/DL (0.55-1.30)
--- NOTE | 2018-02-27 10:32 | Pulmonology Progress Note ---
Assessment/Plan Assessment/Plan PUlmonary Progress Note date: 02/26/18 Assessment/Plan Problems: (1) CHF (congestive heart failure) (2) Influenza B (3) Bronchospasm (4) Pulmonary edema (5) Fever (6) UTI (urinary tract infection) (7) Staphylococcus aureus bacteremia (8) Gastrostomy tube in place (9) CVA (cerebral vascular accident) Assessment/Plan -Optimize pulmonary hygiene/mobilize as tolerated -Titrate down FiO2 to keep SaO2 > 90% -RTC and PRN HHN's -Zosyn (D5), Tamiflu (D5) per ID, F/U repeat CX's -Monitor volumes and renal function -Diuresis as able -F/U cards recs -TF's as tolerated -Continue A/C -DNAR/DNI, BiPAP ok Subjective Allergies: Coded Allergies: No Known Allergies (Unverified , 02/20/18) Subjective -200, AFVSS,stable O2 needs No change in MS No F/C, no cough, no SOB, kameron TF's Objective Last 24 Hour Vital Signs Date Time Temp Pulse Resp B/P (MAP) Pulse Ox O2 Delivery O2 Flow Rate FiO2 02/24/18 08:31 88 22 99 Nasal Cannula 2.0 28 02/24/18 08:28 98 Nasal Cannula 2.0 02/24/18 08:28 Nasal Cannula 2.0 28 02/24/18 04:00 70 02/24/18 04:00 96.8 79 19 122/71 98 Nasal Cannula 3.0 96.8 02/24/18 01:43 68 18 99 Nasal Cannula 2.0 28 02/24/18 01:33 69 18 99 Nasal Cannula 2.0 28 02/24/18 00:00 75 02/24/18 00:00 97.6 83 22 127/62 99 Nasal Cannula 3.0 97.6 02/23/18 20:00 65 02/23/18 20:00 98.3 66 22 114/53 100 Nasal Cannula 3.0 98.3 02/23/18 19:57 62 18 99 Nasal Cannula 2.0 28 02/23/18 19:47 97 Nasal Cannula 2.0 28 02/23/18 19:47 Nasal Cannula 2.0 28 02/23/18 19:47 66 18 97 Nasal Cannula 2.0 28 02/23/18 16:00 97.6 73 20 114/50 99 Nasal Cannula 3.0 97.6 02/23/18 16:00 62 02/23/18 13:52 63 18 99 Nasal Cannula 2.0 28 02/23/18 13:43 69 18 95 Nasal Cannula 2.0 28 02/23/18 12:00 97.2 59 20 113/55 99 Nasal Cannula 3.0 97.2 02/23/18 12:00 57 Intake and Output 02/23/18 02/24/18 19:00 07:00 Intake Total 400 ml Output Total 600 ml Balance -600 ml 400 ml Tube Feeding 400 ml Output Urine Total 600 ml # Voids 1 # Bowel Movements 1 General Appearance: no acute distress, cachetic HEENT: normocephalic, atraumatic, anicteric, mucous membranes moist Respiratory/Chest: chest wall non-tender, lungs clear, normal breath sounds, no respiratory distress Cardiovascular: normal peripheral pulses, normal rate, regular rhythm Abdomen: normal bowel sounds, soft, non tender, no organomegaly, non distended , no mass, other - GT CDI Extremities: no cyanosis, no clubbing, no edema Laboratory Tests 02/23/18 10:53: Stool Occult Blood Negative 02/24/18 08:25: White Blood Count 5.3, Red Blood Count 3.49L, Hemoglobin 10.4L, Hematocrit 32.0L , Mean Corpuscular Volume 92, Mean Corpuscular Hemoglobin 29.8, Mean Corpuscular Hemoglobin Concent 32.5, Red Cell Distribution Width 13.0, Platelet Count 160, Mean Platelet Volume 7.5, Neutrophils (%) (Auto) 68.1, Lymphocytes (% ) (Auto) 21.6, Monocytes (%) (Auto) 8.3, Eosinophils (%) (Auto) 1.5, Basophils ( %) (Auto) 0.6, Prothrombin Time 24.1H, Prothromb Time International Ratio 2.3H, Sodium Level 141, Potassium Level 3.9, Chloride Level 102, Carbon Dioxide Level 37H, Anion Gap 2L, Blood Urea Nitrogen 14, Creatinine 1.0, Estimat Glomerular Filtration Rate , Glucose Level 103, Calcium Level 8.1L Current Medications Medications (Trade) Dose Ordered Sig/Lanie Route PRN Reason Start Time Stop Time Status Last Admin Dose Admin Acetaminophen/ Hydrocodone Bitart ([place] 5/325) 1 tab Q6H PRN GT For Pain 02/22/18 21:00 02/27/18 20:59 Albuterol/ Ipratropium (Albuterol/ Ipratropium) 3 ml Q4H PRN HHN Shortness of Breath 02/22/18 21:00 02/27/18 20:59 Albuterol/ Ipratropium (Albuterol/ Ipratropium) 3 ml Q6HRT HHN 02/23/18 01:00 02/26/18 00:59 02/24/18 08:30 Artificial Tears (Akwa-Tears) 1 drop Q3H PRN BOTH EYES Dry Eyes 02/22/18 21:00 03/22/18 20:59 Atorvastatin Calcium (Lipitor) 20 mg BEDTIME GT 02/22/18 21:00 03/23/18 20:59 02/23/18 21:47 Bisacodyl (Dulcolax) 10 mg DAILYPRN PRN RECTAL Constipation 02/22/18 21:00 03/24/18 20:59 Docusate Sodium (Colace) 100 mg DAILY ORAL 02/23/18 09:00 03/25/18 08:59 Furosemide (Lasix) 20 mg Q12HR IV 02/22/18 21:00 03/22/18 20:59 02/24/18 09:11 Guaifenesin (Robitussin) 300 mg Q4H PRN GT For Cough 02/22/18 21:00 03/22/18 20:59 Iron Sucrose 100 mg/Sodium Chloride 60 ml @ 240 mls/hr BEDTIME IV 02/23/18 21:00 02/25/18 21:14 02/23/18 21:49 Lactobacillus Acidophilus (Culturelle) 1 tab BID GT 02/23/18 09:00 03/23/18 08:59 02/24/18 09:12 Levetiracetam (Keppra) 250 mg QHS GT 02/22/18 21:00 03/23/18 20:59 02/23/18 21:48 Levetiracetam (Keppra) 500 mg DAILY GT 02/23/18 09:00 03/23/18 08:59 02/24/18 09:12 Multivitamins (Multivitamins W/ Minerals 15ml Liquid) 15 ml DAILY GT 02/23/18 09:00 03/23/18 08:59 02/24/18 09:11 Oseltamivir Phosphate (Tamiflu) 30 mg BID ORAL 02/23/18 09:00 02/25/18 09:01 02/24/18 09:15 Pantoprazole (Protonix) 40 mg DAILY IVP 02/23/18 09:00 03/25/18 08:59 02/24/18 09:11 Piperacillin Sod/ Tazobactam Sod 3.375 gm/Sodium Chloride 110 ml @ 27.5 mls/hr EVERY 8 HOURS IVPB 02/22/18 22:00 02/25/18 23:59 02/24/18 05:11 Sennosides (Senokot) 2 tab QHS GT 02/22/18 21:00 03/23/18 21:16 02/23/18 21:47 Sertraline HCl (Zoloft) 12.5 mg DAILY GT 02/23/18 09:00 03/23/18 08:59 UNV Warfarin Sodium (Coumadin per pharmacy) 1 ea DAILY PRN MISC Per rx protocol 02/23/18 09:00 03/23/18 19:14 Warfarin Sodium (Coumadin) 2 mg COUMADIN ORAL 02/24/18 17:00 02/24/18 18:30 Patient seen on 02/26/2018 Subjective Allergies: Coded Allergies: No Known Allergies (Unverified , 02/20/18) Objective Last 24 Hour Vital Signs Date Time Temp Pulse Resp B/P (MAP) Pulse Ox O2 Delivery O2 Flow Rate FiO2 02/27/18 08:32 Nasal Cannula 28 02/27/18 08:30 93 Nasal Cannula 2.0 28 02/27/18 08:00 97.8 73 20 108/49 98 Room Air 97.8 02/27/18 04:00 97.8 80 20 118/55 96 Room Air 97.8 02/27/18 04:00 76 02/27/18 00:00 98.1 84 20 122/52 94 Room Air 98.1 02/27/18 00:00 77 02/26/18 20:00 73 02/26/18 20:00 97.5 81 20 97/60 98 Room Air 97.5 02/26/18 19:08 Nasal Cannula 28 5/27/18 19:08 93 Nasal Cannula 2.0 28 02/26/18 16:00 97.5 82 18 120/76 96 Room Air 97.5 02/26/18 15:59 75 02/26/18 12:03 78 02/26/18 12:00 98.0 88 18 108/71 99 Room Air 98.0 Intake and Output 02/26/18 02/27/18 19:00 07:00 Intake Total 50 ml 760 ml Output Total 300 ml Balance -250 ml 760 ml Intake Free Water 160 ml Tube Feeding 50 ml 600 ml Output Urine Total 300 ml # Voids 1 2 # Bowel Movements 3 Laboratory Tests 02/26/18 13:05: Vancomycin Level Trough 25.3H 02/27/18 08:35: Prothrombin Time 16.4H, Prothromb Time International Ratio 1.6H, Blood Urea Nitrogen 28H, Creatinine 1.1, Estimat Glomerular Filtration Rate Current Medications Medications (Trade) Dose Ordered Sig/Lanie Route PRN Reason Start Time Stop Time Status Last Admin Dose Admin Acetaminophen/ Hydrocodone Bitart ([place] 5/325) 1 tab Q6H PRN GT For Pain 02/22/18 21:00 02/27/18 20:59 Albuterol/ Ipratropium (Albuterol/ Ipratropium) 3 ml Q4H PRN HHN Shortness of Breath 02/22/18 21:00 02/27/18 20:59 Artificial Tears ([place]-Tears) 1 drop Q3H PRN BOTH EYES Dry Eyes 02/22/18 21:00 03/22/18 20:59 Atorvastatin Calcium (Lipitor) 20 mg BEDTIME GT 02/22/18 21:00 03/23/18 20:59 02/26/18 22:23 Bisacodyl (Dulcolax) 10 mg DAILYPRN PRN RECTAL Constipation 02/22/18 21:00 03/24/18 20:59 Docusate Sodium (Colace) 100 mg DAILY ORAL 02/23/18 09:00 03/25/18 08:59 02/27/18 09:10 Furosemide (Lasix) 20 mg Q12HR IV 02/22/18 21:00 03/22/18 20:59 02/27/18 09:10 Guaifenesin (Robitussin) 300 mg Q4H PRN GT For Cough 02/22/18 21:00 03/22/18 20:59 Lactobacillus Acidophilus (Culturelle) 1 tab BID GT 02/23/18 09:00 03/23/18 08:59 02/27/18 09:10 Levetiracetam (Keppra) 250 mg QHS GT 02/22/18 21:00 03/23/18 20:59 02/26/18 22:23 Levetiracetam (Keppra) 500 mg DAILY GT 02/23/18 09:00 03/23/18 08:59 02/27/18 09:10 Multivitamins (Multivitamins W/ Minerals 15ml Liquid) 15 ml DAILY GT 02/23/18 09:00 03/23/18 08:59 02/27/18 09:10 Pantoprazole (Protonix) 40 mg DAILY IVP 02/23/18 09:00 03/25/18 08:59 02/27/18 09:10 Sennosides (Senokot) 2 tab QHS GT 02/22/18 21:00 03/23/18 21:16 02/26/18 22:24 Sertraline HCl (Zoloft) 25 mg Q48H GT 02/25/18 09:00 03/27/18 08:59 02/27/18 09:10 Vancomycin HCl (Vanco rx to dose) 1 ea DAILY PRN MISC Per rx protocol 02/24/18 11:00 03/26/18 10:59 Vancomycin/Sodium Chloride 250 ml @ 166.667 mls/hr Q24H IVPB 02/27/18 09:00 03/04/18 23:59 02/27/18 09:16 Warfarin Sodium (Coumadin per pharmacy) 1 ea DAILY PRN MISC Per rx protocol 02/23/18 09:00 03/23/18 19:14 Warfarin Sodium (Coumadin) 4 mg COUMADIN ONCE PO 02/27/18 17:00 02/27/18 17:01 Singh Arango MD February 27, 2018 10:32
--- NOTE | 2018-02-27 11:10 | Infectious Diseases Prog Note ---
Assessment/Plan Assessment/Plan A 1. pneumonia treated 2. influenza B URI treated 3. staph coagulase negative bacteremia 4. atrial fibrillation 5. hypertension 6- prosthetic mitral valve P 1. continue vancomycin iv, Subjective ROS Limited/Unobtainable: Yes Allergies: Coded Allergies: No Known Allergies (Unverified , 02/20/18) Objective Vital Signs Last 24 Hour Vital Signs Date Time Temp Pulse Resp B/P (MAP) Pulse Ox O2 Delivery O2 Flow Rate FiO2 02/27/18 08:32 Nasal Cannula 28 02/27/18 08:30 93 Nasal Cannula 2.0 28 02/27/18 08:00 97.8 73 20 108/49 98 Room Air 97.8 02/27/18 07:55 75 02/27/18 04:00 97.8 80 20 118/55 96 Room Air 97.8 02/27/18 04:00 76 02/27/18 00:00 98.1 84 20 122/52 94 Room Air 98.1 02/27/18 00:00 77 02/26/18 20:00 73 02/26/18 20:00 97.5 81 20 97/60 98 Room Air 97.5 02/26/18 19:08 Nasal Cannula 28 02/26/18 19:08 93 Nasal Cannula 2.0 28 02/26/18 16:00 97.5 82 18 120/76 96 Room Air 97.5 02/26/18 15:59 75 02/26/18 12:03 78 02/26/18 12:00 98.0 88 18 108/71 99 Room Air 98.0 Height (Feet): 5 Height (Inches): 4.00 Weight (Pounds): 137 General Appearance: no acute distress HEENT: mucous membranes moist Respiratory/Chest: lungs clear Cardiovascular: normal rate Abdomen: soft, non tender, other - GT feeding Extremities: no edema Skin: no rash Neurologic/Psychiatric: aphasia Laboratory Tests Test 02/26/18 13:05 02/27/18 08:35 Vancomycin Level Trough 25.3 ug/mL (5.0-12.0) H Prothrombin Time 16.4 SEC (9.30-11.50) H Prothromb Time International Ratio 1.6 (0.9-1.1) H Blood Urea Nitrogen 28 mg/dL (7-18) H Creatinine 1.1 MG/DL (0.55-1.30) Estimat Glomerular Filtration Rate mL/min (>60) Current Medications Medications (Trade) Dose Ordered Sig/Lanie Route PRN Reason Start Time Stop Time Status Last Admin Dose Admin Acetaminophen/ Hydrocodone Bitart ([place] 5/325) 1 tab Q6H PRN GT For Pain 02/22/18 21:00 02/27/18 20:59 Albuterol/ Ipratropium (Albuterol/ Ipratropium) 3 ml Q4H PRN HHN Shortness of Breath 02/22/18 21:00 02/27/18 20:59 Artificial Tears (Akwa-Tears) 1 drop Q3H PRN BOTH EYES Dry Eyes 02/22/18 21:00 03/22/18 20:59 Atorvastatin Calcium (Lipitor) 20 mg BEDTIME GT 02/22/18 21:00 03/23/18 20:59 02/26/18 22:23 Bisacodyl (Dulcolax) 10 mg DAILYPRN PRN RECTAL Constipation 02/22/18 21:00 03/24/18 20:59 Docusate Sodium (Colace) 100 mg DAILY ORAL 02/23/18 09:00 03/25/18 08:59 02/27/18 09:10 Furosemide (Lasix) 20 mg Q12HR IV 02/22/18 21:00 03/22/18 20:59 02/27/18 09:10 Guaifenesin (Robitussin) 300 mg Q4H PRN GT For Cough 02/22/18 21:00 03/22/18 20:59 Lactobacillus Acidophilus (Culturelle) 1 tab BID GT 02/23/18 09:00 03/23/18 08:59 02/27/18 09:10 Levetiracetam (Keppra) 250 mg QHS GT 02/22/18 21:00 03/23/18 20:59 02/26/18 22:23 Levetiracetam (Keppra) 500 mg DAILY GT 02/23/18 09:00 03/23/18 08:59 02/27/18 09:10 Multivitamins (Multivitamins W/ Minerals 15ml Liquid) 15 ml DAILY GT 02/23/18 09:00 03/23/18 08:59 02/27/18 09:10 Pantoprazole (Protonix) 40 mg DAILY IVP 02/23/18 09:00 03/25/18 08:59 02/27/18 09:10 Sennosides (Senokot) 2 tab QHS GT 02/22/18 21:00 03/23/18 21:16 02/26/18 22:24 Sertraline HCl (Zoloft) 25 mg Q48H GT 02/25/18 09:00 03/27/18 08:59 02/27/18 09:10 Vancomycin HCl (Vanco rx to dose) 1 ea DAILY PRN MISC Per rx protocol 02/24/18 11:00 03/26/18 10:59 Vancomycin/Sodium Chloride 250 ml @ 166.667 mls/hr Q24H IVPB 02/27/18 09:00 03/04/18 23:59 02/27/18 09:16 Warfarin Sodium (Coumadin per pharmacy) 1 ea DAILY PRN MISC Per rx protocol 02/23/18 09:00 03/23/18 19:14 Warfarin Sodium (Coumadin) 4 mg COUMADIN ONCE PO 02/27/18 17:00 02/27/18 17:01 BASHIR RIGGS February 27, 2018 11:09
[2018-02-27 12:00] VITALS: BP 108/51
--- NOTE | 2018-02-27 12:24 | Cardiac Electrophysiology PN ---
Assessment/Plan Assessment/Plan 1. Shortness of breath. Due to CHF due to diastolic dysfunction. Ejection fraction is within normal level. Continue Lasix. 2. Paroxysmal atrial fibrillation, on Coumadin with INR goal of 2 to 3. INR today 1.6. Remained in SR on tele. 3. NSVT 13 beats. Nl EF no OH. No syncope. No further after hypokalemia corrected. 4. Severe hypokalemia with potassium 2.9. Potassium was replaced 5. Dysphagia, status post PEG 6. Chronic obstructive pulmonary disease, on vancomycin 7. Advanced dementia. KATHY RN Subjective Subjective No further VT. Comfortable in NAD. In SR Objective Last 24 Hour Vital Signs Date Time Temp Pulse Resp B/P (MAP) Pulse Ox O2 Delivery O2 Flow Rate FiO2 02/27/18 08:32 Nasal Cannula 02/27/18 08:30 93 Nasal Cannula 2.0 02/27/18 08:00 97.8 73 20 108/49 98 Room Air 97.8 02/27/18 07:55 75 02/27/18 04:00 97.8 80 20 118/55 96 Room Air 97.8 02/27/18 04:00 76 02/27/18 00:00 98.1 84 20 122/52 94 Room Air 98.1 02/27/18 00:00 77 02/26/18 20:00 73 02/26/18 20:00 97.5 81 20 97/60 98 Room Air 97.5 02/26/18 19:08 Nasal Cannula 28 02/26/18 19:08 93 Nasal Cannula 2.0 02/26/18 16:00 97.5 82 18 120/76 96 Room Air 97.5 02/26/18 15:59 75 Intake and Output 02/26/18 02/27/18 19:00 07:00 Intake Total 50 ml 760 ml Output Total 300 ml Balance -250 ml 760 ml Intake Free Water 160 ml Tube Feeding 50 ml 600 ml Output Urine Total 300 ml # Voids 1 2 # Bowel Movements 3 Laboratory Tests Test 02/26/18 13:05 02/27/18 08:35 Vancomycin Level Trough 25.3 ug/mL (5.0-12.0) H Prothrombin Time 16.4 SEC (9.30-11.50) H Prothromb Time International Ratio 1.6 (0.9-1.1) H Blood Urea Nitrogen 28 mg/dL (7-18) H Creatinine 1.1 MG/DL (0.55-1.30) Estimat Glomerular Filtration Rate mL/min (>60) Objective HEAD AND NECK: No JVD. LUNGS: Coarse rhonchi. CARDIOVASCULAR: Regular S1 and S2 with no gallop or murmur. ABDOMEN: G-tube EXTREMITIES: 1+ pitting edema. Arslan Fowler MD February 27, 2018 12:24
[2018-02-27 16:00] VITALS: BP 104/73
[2018-02-27] MEDS ORDERED: Warfarin Sodium 4mg PO ONE (17:00)
[2018-02-27 20:00] VITALS: BP 155/61
[2018-02-27] MEDS: Sennosides 8.6mg GT SCH (20:28)
[2018-02-27] MEDS: Atorvastatin 20mg tab GT SCH (20:28)
--- NOTE | 2018-02-27 21:22 | General Progress Note ---
Assessment/Plan Assessment/Plan chf influenza b fevers afib artificial valve diuresis on nc pulmonary eval appreciated pulmonary hygiene on tamiflu on abx cards eval from Dr Fowler appreciated gi eval appreciated dc planning Subjective Allergies: Coded Allergies: No Known Allergies (Unverified , 02/20/18) Subjective awake alert more comortable Objective Last 24 Hour Vital Signs Date Time Temp Pulse Resp B/P (MAP) Pulse Ox O2 Delivery O2 Flow Rate FiO2 02/27/18 20:00 98.2 68 19 155/61 98 Room Air 98.2 02/27/18 16:00 98.1 66 22 104/73 97 Room Air 98.1 02/27/18 15:29 67 02/27/18 12:13 69 02/27/18 12:00 97.3 70 20 108/51 96 Room Air 97.3 02/27/18 08:32 Nasal Cannula 28 02/27/18 08:30 93 Nasal Cannula 2.0 28 02/27/18 08:00 97.8 73 20 108/49 98 Room Air 97.8 02/27/18 07:55 75 02/27/18 04:00 97.8 80 20 118/55 96 Room Air 97.8 02/27/18 04:00 76 02/27/18 00:00 98.1 84 20 122/52 94 Room Air 98.1 02/27/18 00:00 77 Intake and Output 02/26/18 02/27/18 19:00 07:00 Intake Total 50 ml 760 ml Output Total 300 ml Balance -250 ml 760 ml Intake Free Water 160 ml Tube Feeding 50 ml 600 ml Output Urine Total 300 ml # Voids 1 2 # Bowel Movements 3 Laboratory Tests 02/27/18 08:35: Prothrombin Time 16.4H, Prothromb Time International Ratio 1.6H, Blood Urea Nitrogen 28H, Creatinine 1.1, Estimat Glomerular Filtration Rate Height (Feet): 5 Height (Inches): 4.00 Weight (Pounds): 137 General Appearance: WD/WN Neck: supple Cardiovascular: irregularly irregular Respiratory/Chest: crackles/rales Abdomen: soft Objective pos gtube slight swellin on the left iside of it no leakage noted contracteded le 1 plus edema hemiparesis Darrion Obrien MD February 27, 2018 21:22
[2018-02-28] VITALS: BP 136/70
[2018-02-28 04:00] VITALS: BP 143/68
[2018-02-28 08:00] VITALS: BP 129/65
[2018-02-28] MEDS: Vancomycin 750mg/NS 250ml IVPB SCH (09:34)
[2018-02-28] MEDS: Lactobacillus-GG tablet GT SCH ×2 (09:35→17:11)
[2018-02-28] MEDS: Docusate 100mg cap ORAL SCH (09:35)
[2018-02-28] MEDS: Multivitamins W/Minerals 15 ML UDC GT SCH (09:35)
[2018-02-28] MEDS: levETIRAcetam 500mg/5ml Liquid GT SCH ×2 (09:35→21:58)
[2018-02-28] MEDS: Pantoprazole Inj IVP SCH (09:36)
--- NOTE | 2018-02-28 09:54 | Cardiac Electrophysiology PN ---
Assessment/Plan Assessment/Plan 1. CHF due to diastolic dysfunction. Ejection fraction is within normal level. Continue Lasix. 2. Paroxysmal atrial fibrillation, on Coumadin with INR goal of 2 to 3. INR today 1.6. Remained in SR on tele. 3. NSVT 13 beats. Nl EF no MO. No syncope. No further after hypokalemia corrected. 4. Severe hypokalemia with potassium 2.9. Potassium was replaced 5. Dysphagia, status post PEG 6. Chronic obstructive pulmonary disease, on vancomycin 7. Advanced dementia. KATHY RN Subjective Subjective Comfortable in NAD. In SR. No events Objective Last 24 Hour Vital Signs Date Time Temp Pulse Resp B/P (MAP) Pulse Ox O2 Delivery O2 Flow Rate FiO2 02/28/18 04:00 70 02/28/18 04:00 98.0 70 19 143/68 94 Room Air 98.0 02/28/18 00:00 98.0 78 19 136/70 94 Room Air 98.0 02/28/18 00:00 75 02/27/18 20:33 Nasal Cannula 2.0 28 02/27/18 20:33 88 Nasal Cannula 2.0 28 02/27/18 20:00 71 02/27/18 20:00 98.2 68 19 155/61 98 Room Air 98.2 02/27/18 16:00 98.1 66 22 104/73 97 Room Air 98.1 02/27/18 15:29 67 02/27/18 12:13 69 02/27/18 12:00 97.3 70 20 108/51 96 Room Air 97.3 Intake and Output 02/27/18 02/28/18 19:00 07:00 Intake Total 760 ml 730 ml Balance 760 ml 730 ml Intake Free Water 160 ml 130 ml Tube Feeding 600 ml 600 ml # Voids 2 4 # Bowel Movements 3 Objective HEAD AND NECK: No JVD. LUNGS: Coarse rhonchi. CARDIOVASCULAR: Regular S1 and S2 with no gallop or murmur. ABDOMEN: G-tube EXTREMITIES: 1+ pitting edema. Arslan Fowler MD February 28, 2018 09:54
[2018-02-28 10:54] LABS: INR 1.6 (0.9-1.1)
--- NOTE | 2018-02-28 11:25 | Infectious Diseases Prog Note ---
Assessment/Plan Assessment/Plan antibiotics : iv vancomycin A 1. coag neg staph sepsis r/o PVE 2. influenza B URI s/p rx 3. anemia 4. atrial fibrillation 5. hypertension P 1. continue vancomycin iv 34 more days 2. will follow up cultures 3. consider BLAIRE Subjective ROS Limited/Unobtainable: Yes Allergies: Coded Allergies: No Known Allergies (Unverified , 02/20/18) Objective Vital Signs Last 24 Hour Vital Signs Date Time Temp Pulse Resp B/P (MAP) Pulse Ox O2 Delivery O2 Flow Rate FiO2 02/28/18 09:43 94 Nasal Cannula 2.0 28 02/28/18 09:43 Nasal Cannula 2.0 28 02/28/18 08:00 97.6 74 19 129/65 96 Nasal Cannula 2.0 97.6 02/28/18 08:00 77 02/28/18 04:00 70 02/28/18 04:00 98.0 70 19 143/68 94 Room Air 98.0 02/28/18 00:00 98.0 78 19 136/70 94 Room Air 98.0 02/28/18 00:00 75 02/27/18 20:33 Nasal Cannula 2.0 28 02/27/18 20:33 88 Nasal Cannula 2.0 28 02/27/18 20:00 71 02/27/18 20:00 98.2 68 19 155/61 98 Room Air 98.2 02/27/18 16:00 98.1 66 22 104/73 97 Room Air 98.1 02/27/18 15:29 67 02/27/18 12:13 69 02/27/18 12:00 97.3 70 20 108/51 96 Room Air 97.3 Height (Feet): 5 Height (Inches): 4.00 Weight (Pounds): 133 Respiratory/Chest: lungs clear Cardiovascular: normal rate, regular rhythm, no gallop/murmur Abdomen: soft, non tender, other - GT Extremities: no edema Laboratory Tests Test 02/28/18 10:10 Prothrombin Time 17.0 SEC (9.30-11.50) H Prothromb Time International Ratio 1.6 (0.9-1.1) H Current Medications Medications (Trade) Dose Ordered Sig/Lanie Route PRN Reason Start Time Stop Time Status Last Admin Dose Admin Artificial Tears (Akwa-Tears) 1 drop Q3H PRN BOTH EYES Dry Eyes 02/22/18 21:00 03/22/18 20:59 Atorvastatin Calcium (Lipitor) 20 mg BEDTIME GT 02/22/18 21:00 03/23/18 20:59 02/27/18 20:28 Bisacodyl (Dulcolax) 10 mg DAILYPRN PRN RECTAL Constipation 02/22/18 21:00 03/24/18 20:59 Docusate Sodium (Colace) 100 mg DAILY ORAL 02/23/18 09:00 03/25/18 08:59 02/28/18 09:35 Furosemide (Lasix) 20 mg Q12HR IV 02/22/18 21:00 03/22/18 20:59 02/28/18 09:35 Guaifenesin (Robitussin) 300 mg Q4H PRN GT For Cough 02/22/18 21:00 03/22/18 20:59 Lactobacillus Acidophilus (Culturelle) 1 tab BID GT 02/23/18 09:00 03/23/18 08:59 02/28/18 09:35 Levetiracetam (Keppra) 250 mg QHS GT 02/22/18 21:00 03/23/18 20:59 02/27/18 20:28 Levetiracetam (Keppra) 500 mg DAILY GT 02/23/18 09:00 03/23/18 08:59 02/28/18 09:35 Multivitamins (Multivitamins W/ Minerals 15ml Liquid) 15 ml DAILY GT 02/23/18 09:00 03/23/18 08:59 02/28/18 09:35 Pantoprazole (Protonix) 40 mg DAILY IVP 02/23/18 09:00 03/25/18 08:59 02/28/18 09:36 Sennosides (Senokot) 2 tab QHS GT 02/22/18 21:00 03/23/18 21:16 02/27/18 20:28 Sertraline HCl (Zoloft) 25 mg Q48H GT 02/25/18 09:00 03/27/18 08:59 02/27/18 09:10 Vancomycin HCl (Vanco rx to dose) 1 ea DAILY PRN MISC Per rx protocol 02/24/18 11:00 03/26/18 10:59 Vancomycin/Sodium Chloride 250 ml @ 166.667 mls/hr Q24H IVPB 02/27/18 09:00 03/04/18 23:59 02/28/18 09:34 Warfarin Sodium (Coumadin per pharmacy) 1 ea DAILY PRN MISC Per rx protocol 02/23/18 09:00 03/23/18 19:14 Warfarin Sodium (Coumadin) 4.5 mg COUMADIN ONCE ORAL 02/28/18 17:00 02/28/18 17:01 VIOLETA VOGEL February 28, 2018 11:25
[2018-02-28 12:00] VITALS: BP 116/63
--- NOTE | 2018-02-28 14:24 | GI Progress Note ---
Assessment/Plan Problems: (1) Gastrojejunostomy tube dislodgement ICD Codes: Z43.4 - Encounter for attention to other artificial openings of digestive tract SNOMED: 669670572 (2) Protein calorie malnutrition ICD Codes: E46 - Unspecified protein-calorie malnutrition SNOMED: 570220116 (3) Anemia ICD Codes: D64.9 - Anemia, unspecified SNOMED: 061323411 Status: stable Status Narrative Discussed with Dr. Quigley. Assessment/Plan KUB d/w with radiologist >> GT is in the correct position with no backflow or leaks OB stool negative GTFs per RD GT site care daily/prn iron deficiency >> venofer monitor H&H, prn transfusions electrolyte replacement bowel regime ppi fu labs okay for DC per GI standpoint The patient was seen and examined at bedside and all new and available data was reviewed in the patients chart. I agree with the above findings, impression and plan. (Patient seen earlier today. Signature stamp does not reflect patient encounter time.). - Willian Quigley MD Subjective Subjective limited Objective Last 24 Hour Vital Signs Date Time Temp Pulse Resp B/P (MAP) Pulse Ox O2 Delivery O2 Flow Rate FiO2 02/28/18 12:00 97.9 67 20 116/63 97 Nasal Cannula 2.0 97.9 02/28/18 12:00 66 02/28/18 09:43 94 Nasal Cannula 2.0 28 02/28/18 09:43 Nasal Cannula 2.0 28 02/28/18 08:00 97.6 74 19 129/65 96 Nasal Cannula 2.0 97.6 02/28/18 08:00 77 02/28/18 04:00 70 02/28/18 04:00 98.0 70 19 143/68 94 Room Air 98.0 02/28/18 00:00 98.0 78 19 136/70 94 Room Air 98.0 02/28/18 00:00 75 02/27/18 20:33 Nasal Cannula 2.0 28 02/27/18 20:33 88 Nasal Cannula 2.0 28 02/27/18 20:00 71 02/27/18 20:00 98.2 68 19 155/61 98 Room Air 98.2 02/27/18 16:00 98.1 66 22 104/73 97 Room Air 98.1 02/27/18 15:29 67 Intake and Output 02/27/18 02/28/18 19:00 07:00 Intake Total 760 ml 730 ml Balance 760 ml 730 ml Intake Free Water 160 ml 130 ml Tube Feeding 600 ml 600 ml # Voids 2 4 # Bowel Movements 3 Laboratory Tests Test 02/28/18 10:10 Prothrombin Time 17.0 SEC (9.30-11.50) H Prothromb Time International Ratio 1.6 (0.9-1.1) H Height (Feet): 5 Height (Inches): 4.00 Weight (Pounds): 133 General Appearance: WD/WN, no apparent distress, alert Cardiovascular: normal rate Respiratory/Chest: normal breath sounds, no respiratory distress Abdominal Exam: normal bowel sounds, non tender, soft Extremities: normal range of motion, non-tender Hilton Goldman NP February 28, 2018 14:24
[2018-02-28] MEDS ORDERED: Sterile Water Irrig 1000ml IRRIG ONE (15:15)
[2018-02-28 16:00] VITALS: BP 111/57
[2018-02-28] MEDS ORDERED: WARFARIN SOD ORAL ONE ×2 (17:00)
[2018-02-28 20:00] VITALS: BP 138/77
--- NOTE | 2018-02-28 20:24 | General Progress Note ---
Assessment/Plan Assessment/Plan chf influenza b fevers afib artificial valve diuresis on nc pulmonary eval appreciated pulmonary hygiene on tamiflu on abx cards eval from Dr Fowler appreciated gi eval appreciated dc planning tomorrow Subjective Allergies: Coded Allergies: No Known Allergies (Unverified , 02/20/18) Subjective awake alert more comortable no cp Objective Last 24 Hour Vital Signs Date Time Temp Pulse Resp B/P (MAP) Pulse Ox O2 Delivery O2 Flow Rate FiO2 02/28/18 16:00 66 02/28/18 16:00 98.2 66 20 111/57 97 Nasal Cannula 2.0 98.2 02/28/18 12:00 97.9 67 20 116/63 97 Nasal Cannula 2.0 97.9 02/28/18 12:00 66 02/28/18 09:43 94 Nasal Cannula 2.0 28 02/28/18 09:43 Nasal Cannula 2.0 28 02/28/18 08:00 97.6 74 19 129/65 96 Nasal Cannula 2.0 97.6 02/28/18 08:00 77 02/28/18 04:00 70 02/28/18 04:00 98.0 70 19 143/68 94 Room Air 98.0 02/28/18 00:00 98.0 78 19 136/70 94 Room Air 98.0 02/28/18 00:00 75 02/27/18 20:33 Nasal Cannula 2.0 28 02/27/18 20:33 88 Nasal Cannula 2.0 28 Intake and Output 02/27/18 02/28/18 19:00 07:00 Intake Total 760 ml 730 ml Balance 760 ml 730 ml Intake Free Water 160 ml 130 ml Tube Feeding 600 ml 600 ml # Voids 2 4 # Bowel Movements 3 Laboratory Tests 02/28/18 10:10: Prothrombin Time 17.0H, Prothromb Time International Ratio 1.6H Height (Feet): 5 Height (Inches): 4.00 Weight (Pounds): 133 General Appearance: WD/WN, no apparent distress Cardiovascular: irregularly irregular Respiratory/Chest: lungs clear Abdomen: soft Objective pos gtube slight swellin on the left iside of it no leakage noted contracteded le 1 plus edema hemiparesis aDrrion Obrien MD February 28, 2018 20:24
--- NOTE | 2018-02-28 21:49 | Pulmonology Progress Note ---
Assessment/Plan Assessment/Plan PUlmonary Progress Note date: 02/28/2018 Assessment/Plan Problems: (1) CHF (congestive heart failure) (2) Influenza B (3) Bronchospasm (4) Pulmonary edema (5) Fever (6) UTI (urinary tract infection) (7) Staphylococcus aureus bacteremia (8) Gastrostomy tube in place (9) CVA (cerebral vascular accident) Assessment/Plan -Optimize pulmonary hygiene/mobilize as tolerated -Titrate down FiO2 to keep SaO2 > 90% -RTC and PRN HHN's -Zosyn (D5), Tamiflu (D5) per ID, F/U repeat CX's -Monitor volumes and renal function -Diuresis as able -F/U cards recs -TF's as tolerated -Continue A/C -DNAR/DNI, BiPAP ok Subjective Allergies: Coded Allergies: No Known Allergies (Unverified , 02/20/18) Subjective -200, AFVSS,stable O2 needs No change in MS No F/C, no cough, no SOB, kameron TF's Objective Last 24 Hour Vital Signs Date Time Temp Pulse Resp B/P (MAP) Pulse Ox O2 Delivery O2 Flow Rate FiO2 02/24/18 08:31 88 22 99 Nasal Cannula 2.0 28 02/24/18 08:28 98 Nasal Cannula 2.0 02/24/18 08:28 Nasal Cannula 2.0 28 02/24/18 04:00 70 02/24/18 04:00 96.8 79 19 122/71 98 Nasal Cannula 3.0 96.8 02/24/18 01:43 68 18 99 Nasal Cannula 2.0 28 02/24/18 01:33 69 18 99 Nasal Cannula 2.0 28 02/24/18 00:00 75 02/24/18 00:00 97.6 83 22 127/62 99 Nasal Cannula 3.0 97.6 02/23/18 20:00 65 02/23/18 20:00 98.3 66 22 114/53 100 Nasal Cannula 3.0 98.3 02/23/18 19:57 62 18 99 Nasal Cannula 2.0 28 02/23/18 19:47 97 Nasal Cannula 2.0 28 02/23/18 19:47 Nasal Cannula 2.0 28 02/23/18 19:47 66 18 97 Nasal Cannula 2.0 28 02/23/18 16:00 97.6 73 20 114/50 99 Nasal Cannula 3.0 97.6 02/23/18 16:00 62 02/23/18 13:52 63 18 99 Nasal Cannula 2.0 28 02/23/18 13:43 69 18 95 Nasal Cannula 2.0 28 02/23/18 12:00 97.2 59 20 113/55 99 Nasal Cannula 3.0 97.2 02/23/18 12:00 57 Intake and Output 02/23/18 02/24/18 19:00 07:00 Intake Total 400 ml Output Total 600 ml Balance -600 ml 400 ml Tube Feeding 400 ml Output Urine Total 600 ml # Voids 1 # Bowel Movements 1 General Appearance: no acute distress, cachetic HEENT: normocephalic, atraumatic, anicteric, mucous membranes moist Respiratory/Chest: chest wall non-tender, lungs clear, normal breath sounds, no respiratory distress Cardiovascular: normal peripheral pulses, normal rate, regular rhythm Abdomen: normal bowel sounds, soft, non tender, no organomegaly, non distended , no mass, other - GT CDI Extremities: no cyanosis, no clubbing, no edema Laboratory Tests 02/23/18 10:53: Stool Occult Blood Negative 02/24/18 08:25: White Blood Count 5.3, Red Blood Count 3.49L, Hemoglobin 10.4L, Hematocrit 32.0L , Mean Corpuscular Volume 92, Mean Corpuscular Hemoglobin 29.8, Mean Corpuscular Hemoglobin Concent 32.5, Red Cell Distribution Width 13.0, Platelet Count 160, Mean Platelet Volume 7.5, Neutrophils (%) (Auto) 68.1, Lymphocytes (% ) (Auto) 21.6, Monocytes (%) (Auto) 8.3, Eosinophils (%) (Auto) 1.5, Basophils ( %) (Auto) 0.6, Prothrombin Time 24.1H, Prothromb Time International Ratio 2.3H, Sodium Level 141, Potassium Level 3.9, Chloride Level 102, Carbon Dioxide Level 37H, Anion Gap 2L, Blood Urea Nitrogen 14, Creatinine 1.0, Estimat Glomerular Filtration Rate , Glucose Level 103, Calcium Level 8.1L Current Medications Medications (Trade) Dose Ordered Sig/Lanie Route PRN Reason Start Time Stop Time Status Last Admin Dose Admin Acetaminophen/ Hydrocodone Bitart ([place] 5/325) 1 tab Q6H PRN GT For Pain 02/22/18 21:00 02/27/18 20:59 Albuterol/ Ipratropium (Albuterol/ Ipratropium) 3 ml Q4H PRN HHN Shortness of Breath 02/22/18 21:00 02/27/18 20:59 Albuterol/ Ipratropium (Albuterol/ Ipratropium) 3 ml Q6HRT HHN 02/23/18 01:00 02/26/18 00:59 02/24/18 08:30 Artificial Tears (Akwa-Tears) 1 drop Q3H PRN BOTH EYES Dry Eyes 02/22/18 21:00 03/22/18 20:59 Atorvastatin Calcium (Lipitor) 20 mg BEDTIME GT 02/22/18 21:00 03/23/18 20:59 02/23/18 21:47 Bisacodyl (Dulcolax) 10 mg DAILYPRN PRN RECTAL Constipation 02/22/18 21:00 03/24/18 20:59 Docusate Sodium (Colace) 100 mg DAILY ORAL 02/23/18 09:00 03/25/18 08:59 Furosemide (Lasix) 20 mg Q12HR IV 02/22/18 21:00 03/22/18 20:59 02/24/18 09:11 Guaifenesin (Robitussin) 300 mg Q4H PRN GT For Cough 02/22/18 21:00 03/22/18 20:59 Iron Sucrose 100 mg/Sodium Chloride 60 ml @ 240 mls/hr BEDTIME IV 02/23/18 21:00 02/25/18 21:14 02/23/18 21:49 Lactobacillus Acidophilus (Culturelle) 1 tab BID GT 02/23/18 09:00 03/23/18 08:59 02/24/18 09:12 Levetiracetam (Keppra) 250 mg QHS GT 02/22/18 21:00 03/23/18 20:59 02/23/18 21:48 Levetiracetam (Keppra) 500 mg DAILY GT 02/23/18 09:00 03/23/18 08:59 02/24/18 09:12 Multivitamins (Multivitamins W/ Minerals 15ml Liquid) 15 ml DAILY GT 02/23/18 09:00 03/23/18 08:59 02/24/18 09:11 Oseltamivir Phosphate (Tamiflu) 30 mg BID ORAL 02/23/18 09:00 02/25/18 09:01 02/24/18 09:15 Pantoprazole (Protonix) 40 mg DAILY IVP 02/23/18 09:00 03/25/18 08:59 02/24/18 09:11 Piperacillin Sod/ Tazobactam Sod 3.375 gm/Sodium Chloride 110 ml @ 27.5 mls/hr EVERY 8 HOURS IVPB 02/22/18 22:00 02/25/18 23:59 02/24/18 05:11 Sennosides (Senokot) 2 tab QHS GT 02/22/18 21:00 03/23/18 21:16 02/23/18 21:47 Sertraline HCl (Zoloft) 12.5 mg DAILY GT 02/23/18 09:00 03/23/18 08:59 UNV Warfarin Sodium (Coumadin per pharmacy) 1 ea DAILY PRN MISC Per rx protocol 02/23/18 09:00 03/23/18 19:14 Warfarin Sodium (Coumadin) 2 mg COUMADIN ORAL 02/24/18 17:00 02/24/18 18:30 Patient seen on 02/28/2018 Subjective Allergies: Coded Allergies: No Known Allergies (Unverified , 02/20/18) Objective Last 24 Hour Vital Signs Date Time Temp Pulse Resp B/P (MAP) Pulse Ox O2 Delivery O2 Flow Rate FiO2 02/28/18 19:30 Nasal Cannula 2.0 28 02/28/18 19:30 95 Nasal Cannula 2.0 28 02/28/18 16:00 66 02/28/18 16:00 98.2 66 20 111/57 97 Nasal Cannula 2.0 98.2 02/28/18 12:00 97.9 67 20 116/63 97 Nasal Cannula 2.0 97.9 02/28/18 12:00 66 02/28/18 09:43 94 Nasal Cannula 2.0 28 02/28/18 09:43 Nasal Cannula 2.0 28 02/28/18 08:00 97.6 74 19 129/65 96 Nasal Cannula 2.0 97.6 02/28/18 08:00 77 02/28/18 04:00 70 02/28/18 04:00 98.0 70 19 143/68 94 Room Air 98.0 02/28/18 00:00 98.0 78 19 136/70 94 Room Air 98.0 02/28/18 00:00 75 Intake and Output 02/27/18 02/28/18 19:00 07:00 Intake Total 760 ml 730 ml Balance 760 ml 730 ml Intake Free Water 160 ml 130 ml Tube Feeding 600 ml 600 ml # Voids 2 4 # Bowel Movements 3 Laboratory Tests 02/28/18 10:10: Prothrombin Time 17.0H, Prothromb Time International Ratio 1.6H Current Medications Medications (Trade) Dose Ordered Sig/Lanie Route PRN Reason Start Time Stop Time Status Last Admin Dose Admin Artificial Tears (Akwa-Tears) 1 drop Q3H PRN BOTH EYES Dry Eyes 02/22/18 21:00 03/22/18 20:59 Atorvastatin Calcium (Lipitor) 20 mg BEDTIME GT 02/22/18 21:00 03/23/18 20:59 02/27/18 20:28 Bisacodyl (Dulcolax) 10 mg DAILYPRN PRN RECTAL Constipation 02/22/18 21:00 03/24/18 20:59 Docusate Sodium (Colace) 100 mg DAILY ORAL 02/23/18 09:00 03/25/18 08:59 02/28/18 09:35 Furosemide (Lasix) 20 mg Q12HR IV 02/22/18 21:00 03/22/18 20:59 02/28/18 09:35 Guaifenesin (Robitussin) 300 mg Q4H PRN GT For Cough 02/22/18 21:00 03/22/18 20:59 Lactobacillus Acidophilus (Culturelle) 1 tab BID GT 02/23/18 09:00 03/23/18 08:59 02/28/18 17:11 Levetiracetam (Keppra) 250 mg QHS GT 02/22/18 21:00 03/23/18 20:59 02/27/18 20:28 Levetiracetam (Keppra) 500 mg DAILY GT 02/23/18 09:00 03/23/18 08:59 02/28/18 09:35 Multivitamins (Multivitamins W/ Minerals 15ml Liquid) 15 ml DAILY GT 02/23/18 09:00 03/23/18 08:59 02/28/18 09:35 Pantoprazole (Protonix) 40 mg DAILY IVP 02/23/18 09:00 03/25/18 08:59 02/28/18 09:36 Sennosides (Senokot) 2 tab QHS GT 02/22/18 21:00 03/23/18 21:16 02/27/18 20:28 Sertraline HCl (Zoloft) 25 mg Q48H GT 02/25/18 09:00 03/27/18 08:59 02/27/18 09:10 Vancomycin HCl (Vanco rx to dose) 1 ea DAILY PRN MISC Per rx protocol 02/24/18 11:00 03/26/18 10:59 Vancomycin/Sodium Chloride 250 ml @ 166.667 mls/hr Q24H IVPB 02/27/18 09:00 03/04/18 23:59 02/28/18 09:34 Warfarin Sodium (Coumadin per pharmacy) 1 ea DAILY PRN MISC Per rx protocol 02/23/18 09:00 03/23/18 19:14 Singh Arango MD February 28, 2018 21:49
[2018-02-28] MEDS: Sennosides 8.6mg GT SCH (21:58)
[2018-02-28] MEDS: Atorvastatin 20mg tab GT SCH (21:58)
[2018-03-01 00:47] VITALS: BP 126/50
[2018-03-01 04:00] VITALS: BP 124/48
[2018-03-01 08:00] VITALS: BP 121/54
[2018-03-01 08:10] LABS: BASOPHILS % (AUTO) 0.8 % (0.0-2.0); EOSINOPHILS % (AUTO) 2.4 % (0.0-3.0); HEMATOCRIT 34.4 % (37.0-47.0); HEMOGLOBIN 11.2 G/DL (12.0-16.0); LYMPHOCYTES % (AUTO) 16.7 % (20.0-45.0); MEAN CORPUSCULAR VOLUME 92 FL (80-99); MONOCYTES % (AUTO) 7.4 % (1.0-10.0); NEUTROPHILS % (AUTO) 72.7 % (45.0-75.0); PLATELET COUNT 323 K/UL (150-450); RED BLOOD COUNT 3.75 M/UL (4.20-5.40); RED CELL DISTRIBUTION WIDTH 12.4 % (11.6-14.8); WHITE BLOOD COUNT 9.5 K/UL (4.8-10.8)
[2018-03-01 08:19] LABS: ANION GAP 4 mmol/L (5-15); BLOOD UREA NITROGEN 39 mg/dL (7-18); CARBON DIOXIDE 36 MMOL/L (21-32); CHLORIDE 99 MMOL/L (98-107); CREATININE 1.1 MG/DL (0.55-1.30); POTASSIUM 3.7 MMOL/L (3.5-5.1); SODIUM 139 MMOL/L (136-145)
[2018-03-01 08:21] LABS: INR 1.7 (0.9-1.1)
--- NOTE | 2018-03-01 09:36 | Diagnostic Imaging Report ---
APPROVED REPORT CPT Code: 43441 Present Symptoms Comments: BILATERAL LEGS PAIN. BILATERAL: Imaging reveals a patent deep venous system bilaterally. There is no evidence of thrombus within the femoral, popliteal or tibial segments. The greater saphenous veins are also within normal limits. Doppler indicates normal spontaneous flow within these segments.
[2018-03-01] MEDS: levETIRAcetam 500mg/5ml Liquid GT SCH ×2 (09:47→20:29)
[2018-03-01] MEDS: Pantoprazole Inj IVP SCH (09:47)
[2018-03-01] MEDS: Sertraline 50mg tab GT SCH (09:48)
[2018-03-01] MEDS: Multivitamins W/Minerals 15 ML UDC GT SCH (09:48)
[2018-03-01] MEDS: Lactobacillus-GG tablet GT SCH ×2 (09:48→17:26)
[2018-03-01] MEDS: Docusate 100mg cap ORAL SCH (09:49)
--- NOTE | 2018-03-01 11:39 | GI Progress Note ---
Assessment/Plan Problems: (1) Gastrojejunostomy tube dislodgement ICD Codes: Z43.4 - Encounter for attention to other artificial openings of digestive tract SNOMED: 460303571 (2) Protein calorie malnutrition ICD Codes: E46 - Unspecified protein-calorie malnutrition SNOMED: 106850833 (3) Anemia ICD Codes: D64.9 - Anemia, unspecified SNOMED: 593701417 Status: stable Status Narrative Discussed with Dr. Quigley. Assessment/Plan KUB d/w with radiologist >> GT is in the correct position with no backflow or leaks OB stool negative GTFs per RD GT site care daily/prn iron deficiency >> venofer monitor H&H, prn transfusions electrolyte replacement bowel regime ppi fu labs okay for DC per GI standpoint The patient was seen and examined at bedside and all new and available data was reviewed in the patients chart. I agree with the above findings, impression and plan. (Patient seen earlier today. Signature stamp does not reflect patient encounter time.). - Willian Quigley MD Subjective Subjective limited Objective Last 24 Hour Vital Signs Date Time Temp Pulse Resp B/P (MAP) Pulse Ox O2 Delivery O2 Flow Rate FiO2 03/01/18 08:00 97.7 72 20 121/54 99 Nasal Cannula 2.0 97.7 03/01/18 04:00 97.9 67 19 124/48 95 Nasal Cannula 2.0 97.9 03/01/18 03:47 66 03/01/18 00:47 97.8 71 19 126/50 96 Nasal Cannula 2.0 97.8 02/28/18 23:51 69 02/28/18 20:00 98.3 73 19 138/77 97 Nasal Cannula 2.0 98.3 02/28/18 19:30 Nasal Cannula 2.0 28 02/28/18 19:30 95 Nasal Cannula 2.0 28 02/28/18 19:00 70 02/28/18 16:00 66 02/28/18 16:00 98.2 66 20 111/57 97 Nasal Cannula 2.0 98.2 02/28/18 12:00 97.9 67 20 116/63 97 Nasal Cannula 2.0 97.9 02/28/18 12:00 66 Intake and Output 02/28/18 03/01/18 19:00 07:00 Intake Total 50 ml 900 ml Balance 50 ml 900 ml Intake Free Water 200 ml Tube Feeding 50 ml 600 ml Other 100 ml # Voids 2 # Bowel Movements 2 Laboratory Tests Test 03/01/18 08:00 White Blood Count 9.5 K/UL (4.8-10.8) Red Blood Count 3.75 M/UL (4.20-5.40) L Hemoglobin 11.2 G/DL (12.0-16.0) L Hematocrit 34.4 % (37.0-47.0) L Mean Corpuscular Volume 92 FL (80-99) Mean Corpuscular Hemoglobin 29.9 PG (27.0-31.0) Mean Corpuscular Hemoglobin Concent 32.6 G/DL (32.0-36.0) Red Cell Distribution Width 12.4 % (11.6-14.8) Platelet Count 323 K/UL (150-450) Mean Platelet Volume 7.0 FL (6.5-10.1) Neutrophils (%) (Auto) 72.7 % (45.0-75.0) Lymphocytes (%) (Auto) 16.7 % (20.0-45.0) L Monocytes (%) (Auto) 7.4 % (1.0-10.0) Eosinophils (%) (Auto) 2.4 % (0.0-3.0) Basophils (%) (Auto) 0.8 % (0.0-2.0) Prothrombin Time 17.4 SEC (9.30-11.50) H Prothromb Time International Ratio 1.7 (0.9-1.1) H Sodium Level 139 MMOL/L (136-145) Potassium Level 3.7 MMOL/L (3.5-5.1) Chloride Level 99 MMOL/L (98-107) Carbon Dioxide Level 36 MMOL/L (21-32) H Anion Gap 4 mmol/L (5-15) L Blood Urea Nitrogen 39 mg/dL (7-18) H Creatinine 1.1 MG/DL (0.55-1.30) Estimat Glomerular Filtration Rate mL/min (>60) Glucose Level 129 MG/DL (74-106) H Calcium Level 9.0 MG/DL (8.5-10.1) Vancomycin Level Trough 23.9 ug/mL (5.0-12.0) H Height (Feet): 5 Height (Inches): 4.00 Weight (Pounds): 132 General Appearance: WD/WN, no apparent distress, alert Cardiovascular: normal rate Respiratory/Chest: normal breath sounds, no respiratory distress Abdominal Exam: normal bowel sounds, non tender, soft, GT site - c/d/i Extremities: non-tender Hilton Goldman NP March 01, 2018 11:39
[2018-03-01 12:00] VITALS: BP 114/57
--- NOTE | 2018-03-01 15:54 | Cardiac Electrophysiology PN ---
Assessment/Plan Assessment/Plan 1. CHF due to diastolic dysfunction. Ejection fraction is within normal level. Continue Lasix. 2. Paroxysmal atrial fibrillation, on Coumadin with INR goal of 2 to 3. INR today 1.6. Remained in SR on tele. 3. NSVT 13 beats. Nl EF no FL. No syncope. No further after hypokalemia corrected. 4. Severe hypokalemia Potassium was replaced 5. Dysphagia, status post PEG 6. Chronic obstructive pulmonary disease, on vancomycin 7. Advanced dementia. 8. Coag neg staph sepsis r/o Endocarditis. 9. S/P Prosthetic Mitral Valve replacement. Will order [facility]LA[facility] KATHY RN Subjective Subjective Comfortable in NAD. In SR. ID is concerned about Endocarditis Objective Last 24 Hour Vital Signs Date Time Temp Pulse Resp B/P (MAP) Pulse Ox O2 Delivery O2 Flow Rate FiO2 03/01/18 12:00 97.2 71 20 114/57 99 Nasal Cannula 2.0 97.2 03/01/18 12:00 69 03/01/18 08:00 97.7 72 20 121/54 99 Nasal Cannula 2.0 97.7 03/01/18 08:00 63 03/01/18 04:00 97.9 67 19 124/48 95 Nasal Cannula 2.0 97.9 03/01/18 03:47 66 03/01/18 00:47 97.8 71 19 126/50 96 Nasal Cannula 2.0 97.8 02/28/18 23:51 69 02/28/18 20:00 98.3 73 19 138/77 97 Nasal Cannula 2.0 98.3 02/28/18 19:30 Nasal Cannula 2.0 28 02/28/18 19:30 95 Nasal Cannula 2.0 28 02/28/18 19:00 70 02/28/18 16:00 66 02/28/18 16:00 98.2 66 20 111/57 97 Nasal Cannula 2.0 98.2 Intake and Output 02/28/18 03/01/18 19:00 07:00 Intake Total 50 ml 900 ml Balance 50 ml 900 ml Intake Free Water 200 ml Tube Feeding 50 ml 600 ml Other 100 ml # Voids 2 # Bowel Movements 2 Laboratory Tests Test 03/01/18 08:00 White Blood Count 9.5 K/UL (4.8-10.8) Red Blood Count 3.75 M/UL (4.20-5.40) L Hemoglobin 11.2 G/DL (12.0-16.0) L Hematocrit 34.4 % (37.0-47.0) L Mean Corpuscular Volume 92 FL (80-99) Mean Corpuscular Hemoglobin 29.9 PG (27.0-31.0) Mean Corpuscular Hemoglobin Concent 32.6 G/DL (32.0-36.0) Red Cell Distribution Width 12.4 % (11.6-14.8) Platelet Count 323 K/UL (150-450) Mean Platelet Volume 7.0 FL (6.5-10.1) Neutrophils (%) (Auto) 72.7 % (45.0-75.0) Lymphocytes (%) (Auto) 16.7 % (20.0-45.0) L Monocytes (%) (Auto) 7.4 % (1.0-10.0) Eosinophils (%) (Auto) 2.4 % (0.0-3.0) Basophils (%) (Auto) 0.8 % (0.0-2.0) Prothrombin Time 17.4 SEC (9.30-11.50) H Prothromb Time International Ratio 1.7 (0.9-1.1) H Sodium Level 139 MMOL/L (136-145) Potassium Level 3.7 MMOL/L (3.5-5.1) Chloride Level 99 MMOL/L (98-107) Carbon Dioxide Level 36 MMOL/L (21-32) H Anion Gap 4 mmol/L (5-15) L Blood Urea Nitrogen 39 mg/dL (7-18) H Creatinine 1.1 MG/DL (0.55-1.30) Estimat Glomerular Filtration Rate mL/min (>60) Glucose Level 129 MG/DL (74-106) H Calcium Level 9.0 MG/DL (8.5-10.1) Vancomycin Level Trough 23.9 ug/mL (5.0-12.0) H Objective HEAD AND NECK: No JVD. LUNGS: Coarse rhonchi. CARDIOVASCULAR: Regular S1 and S2 with no gallop or murmur. ABDOMEN: G-tube EXTREMITIES: 1+ pitting edema. Arslan Fowler MD March 01, 2018 15:54
[2018-03-01 16:00] VITALS: BP 127/52
[2018-03-01] MEDS ORDERED: Warfarin Sodium 5mg ORAL SCH (17:00)
[2018-03-01] MEDS: Vancomycin 500 MG in D5W 110 ML IVPB SCH (17:30)
--- NOTE | 2018-03-01 18:58 | Pulmonology Progress Note ---
Assessment/Plan Problems: (1) CHF (congestive heart failure) (2) Influenza B (3) Bronchospasm (4) Pulmonary edema (5) Fever (6) UTI (urinary tract infection) (7) Staphylococcus aureus bacteremia (8) Gastrostomy tube in place (9) CVA (cerebral vascular accident) Assessment/Plan -Optimize pulmonary hygiene/mobilize as tolerated -Titrate down FiO2 to keep SaO2 > 90% -RTC and PRN HHN's -IV Vanco per ID -Monitor volumes and renal function -Diuresis as able -F/U cards recs -F/U [facility] -TF's as tolerated -Continue A/C -DNAR/DNI, BiPAP ok Subjective Allergies: Coded Allergies: No Known Allergies (Unverified , 02/20/18) Subjective Events reviewed, AFVSS, stable O2 needs No cough, no SOB, no F/C Objective Last 24 Hour Vital Signs Date Time Temp Pulse Resp B/P (MAP) Pulse Ox O2 Delivery O2 Flow Rate FiO2 03/01/18 18:24 Nasal Cannula 2.0 28 03/01/18 18:23 96 Nasal Cannula 2.0 28 03/01/18 16:00 98.4 71 20 127/52 97 Nasal Cannula 2.0 98.4 03/01/18 16:00 66 03/01/18 12:00 97.2 71 20 114/57 99 Nasal Cannula 2.0 97.2 03/01/18 12:00 69 03/01/18 08:00 97.7 72 20 121/54 99 Nasal Cannula 2.0 97.7 03/01/18 08:00 63 03/01/18 04:00 97.9 67 19 124/48 95 Nasal Cannula 2.0 97.9 03/01/18 03:47 66 03/01/18 00:47 97.8 71 19 126/50 96 Nasal Cannula 2.0 97.8 02/28/18 23:51 69 02/28/18 20:00 98.3 73 19 138/77 97 Nasal Cannula 2.0 98.3 02/28/18 19:30 Nasal Cannula 2.0 28 02/28/18 19:30 95 Nasal Cannula 2.0 28 02/28/18 19:00 70 Intake and Output 02/28/18 03/01/18 19:00 07:00 Intake Total 50 ml 900 ml Balance 50 ml 900 ml Intake Free Water 200 ml Tube Feeding 50 ml 600 ml Other 100 ml # Voids 2 # Bowel Movements 2 General Appearance: no acute distress, other - minimally verbal HEENT: normocephalic, atraumatic, anicteric, mucous membranes moist Respiratory/Chest: chest wall non-tender, lungs clear, normal breath sounds, no respiratory distress, no accessory muscle use Cardiovascular: normal peripheral pulses, normal rate, regular rhythm Abdomen: normal bowel sounds, soft, non tender, no organomegaly, non distended Extremities: no cyanosis, no clubbing, no edema Laboratory Tests 03/01/18 08:00: White Blood Count 9.5, Red Blood Count 3.75L, Hemoglobin 11.2L, Hematocrit 34.4L , Mean Corpuscular Volume 92, Mean Corpuscular Hemoglobin 29.9, Mean Corpuscular Hemoglobin Concent 32.6, Red Cell Distribution Width 12.4, Platelet Count 323, Mean Platelet Volume 7.0, Neutrophils (%) (Auto) 72.7, Lymphocytes (% ) (Auto) 16.7L, Monocytes (%) (Auto) 7.4, Eosinophils (%) (Auto) 2.4, Basophils (%) (Auto) 0.8, Prothrombin Time 17.4H, Prothromb Time International Ratio 1.7H , Sodium Level 139, Potassium Level 3.7, Chloride Level 99, Carbon Dioxide Level 36H, Anion Gap 4L, Blood Urea Nitrogen 39H, Creatinine 1.1, Estimat Glomerular Filtration Rate , Glucose Level 129H, Calcium Level 9.0, Vancomycin Level Trough 23.9H Current Medications Medications (Trade) Dose Ordered Sig/Lanie Route PRN Reason Start Time Stop Time Status Last Admin Dose Admin Artificial Tears (Akwa-Tears) 1 drop Q3H PRN BOTH EYES Dry Eyes 02/22/18 21:00 03/22/18 20:59 Atorvastatin Calcium (Lipitor) 20 mg BEDTIME GT 02/22/18 21:00 03/23/18 20:59 02/28/18 21:58 Bisacodyl (Dulcolax) 10 mg DAILYPRN PRN RECTAL Constipation 02/22/18 21:00 03/24/18 20:59 Docusate Sodium (Colace) 100 mg DAILY ORAL 02/23/18 09:00 03/25/18 08:59 03/01/18 09:49 Furosemide (Lasix) 20 mg Q12HR IV 02/22/18 21:00 03/22/18 20:59 03/01/18 09:48 Guaifenesin (Robitussin) 300 mg Q4H PRN GT For Cough 02/22/18 21:00 03/22/18 20:59 Lactobacillus Acidophilus (Culturelle) 1 tab BID GT 02/23/18 09:00 03/23/18 08:59 03/01/18 17:26 Levetiracetam (Keppra) 250 mg QHS GT 02/22/18 21:00 03/23/18 20:59 02/28/18 21:58 Levetiracetam (Keppra) 500 mg DAILY GT 02/23/18 09:00 03/23/18 08:59 03/01/18 09:47 Multivitamins (Multivitamins W/ Minerals 15ml Liquid) 15 ml DAILY GT 02/23/18 09:00 03/23/18 08:59 03/01/18 09:48 Pantoprazole (Protonix) 40 mg DAILY IVP 02/23/18 09:00 03/25/18 08:59 03/01/18 09:47 Sennosides (Senokot) 2 tab QHS GT 02/22/18 21:00 03/23/18 21:16 02/28/18 21:58 Sertraline HCl (Zoloft) 25 mg Q48H GT 02/25/18 09:00 03/27/18 08:59 03/01/18 09:48 Vancomycin HCl (Vanco rx to dose) 1 ea DAILY PRN MISC Per rx protocol 02/24/18 11:00 03/26/18 10:59 Vancomycin HCl 500 mg/Dextrose 110 ml @ 110 mls/hr Q24H IVPB 03/01/18 18:00 03/06/18 17:59 03/01/18 17:30 Warfarin Sodium (Coumadin per pharmacy) 1 ea DAILY PRN MISC Per rx protocol 02/23/18 09:00 03/23/18 19:14 Warfarin Sodium (Coumadin) 5 mg COUMADIN ORAL 03/01/18 17:00 03/01/18 19:00 03/01/18 17:26 NAEEM HUNTLEY M.D. March 01, 2018 18:58
[2018-03-01] MEDS ORDERED: Sterile Water Irrig 1000ml IRRIG ONE (19:59)
[2018-03-01 20:00] VITALS: BP 110/46
[2018-03-01] MEDS: Atorvastatin 20mg tab GT SCH (20:29)
[2018-03-01] MEDS: Sennosides 8.6mg GT SCH (20:29)
--- NOTE | 2018-03-01 22:44 | General Progress Note ---
Assessment/Plan Assessment/Plan chf sepsis staph influenza b fevers afib artificial valve diuresis on nc pulmonary eval appreciated pulmonary hygiene on tamiflu on abx per ID duration noted cards eval from Dr Fowler appreciated dw Dr Fowler states to frail to under go [facility] gi eval appreciated dc planning tomorrow Subjective Allergies: Coded Allergies: No Known Allergies (Unverified , 02/20/18) Subjective awake alert more comortable no cp Objective Last 24 Hour Vital Signs Date Time Temp Pulse Resp B/P (MAP) Pulse Ox O2 Delivery O2 Flow Rate FiO2 03/01/18 20:00 97.7 76 20 110/46 96 Nasal Cannula 2.0 97.7 03/01/18 18:24 Nasal Cannula 2.0 28 03/01/18 18:23 96 Nasal Cannula 2.0 28 03/01/18 16:00 98.4 71 20 127/52 97 Nasal Cannula 2.0 98.4 03/01/18 16:00 66 03/01/18 12:00 97.2 71 20 114/57 99 Nasal Cannula 2.0 97.2 03/01/18 12:00 69 03/01/18 08:00 97.7 72 20 121/54 99 Nasal Cannula 2.0 97.7 03/01/18 08:00 63 03/01/18 04:00 97.9 67 19 124/48 95 Nasal Cannula 2.0 97.9 03/01/18 03:47 66 03/01/18 00:47 97.8 71 19 126/50 96 Nasal Cannula 2.0 97.8 02/28/18 23:51 69 Intake and Output 02/28/18 03/01/18 19:00 07:00 Intake Total 50 ml 900 ml Balance 50 ml 900 ml Intake Free Water 200 ml Tube Feeding 50 ml 600 ml Other 100 ml # Voids 2 # Bowel Movements 2 Laboratory Tests 03/01/18 08:00: White Blood Count 9.5, Red Blood Count 3.75L, Hemoglobin 11.2L, Hematocrit 34.4L , Mean Corpuscular Volume 92, Mean Corpuscular Hemoglobin 29.9, Mean Corpuscular Hemoglobin Concent 32.6, Red Cell Distribution Width 12.4, Platelet Count 323, Mean Platelet Volume 7.0, Neutrophils (%) (Auto) 72.7, Lymphocytes (% ) (Auto) 16.7L, Monocytes (%) (Auto) 7.4, Eosinophils (%) (Auto) 2.4, Basophils (%) (Auto) 0.8, Prothrombin Time 17.4H, Prothromb Time International Ratio 1.7H , Sodium Level 139, Potassium Level 3.7, Chloride Level 99, Carbon Dioxide Level 36H, Anion Gap 4L, Blood Urea Nitrogen 39H, Creatinine 1.1, Estimat Glomerular Filtration Rate , Glucose Level 129H, Calcium Level 9.0, Vancomycin Level Trough 23.9H Height (Feet): 5 Height (Inches): 4.00 Weight (Pounds): 132 General Appearance: WD/WN, no apparent distress Cardiovascular: normal rate, irregularly irregular Respiratory/Chest: lungs clear Objective pos gtube slight swellin on the left iside of it no leakage noted contracteded le 1 plus edema hemiparesis Darrion Obrien MD March 01, 2018 22:44
[2018-03-01] MEDS: Enoxaparin 60mg Inj SUBQ SCH (23:27)
[2018-03-02] VITALS: BP 112/53
[2018-03-02 04:00] VITALS: BP 107/52
[2018-03-02 07:53] LABS: BASOPHILS % (AUTO) 0.9 % (0.0-2.0); EOSINOPHILS % (AUTO) 1.9 % (0.0-3.0); HEMATOCRIT 36.1 % (37.0-47.0); HEMOGLOBIN 12.2 G/DL (12.0-16.0); LYMPHOCYTES % (AUTO) 20.5 % (20.0-45.0); MEAN CORPUSCULAR VOLUME 90 FL (80-99); NEUTROPHILS % (AUTO) 69.7 % (45.0-75.0); PLATELET COUNT 322 K/UL (150-450); RED BLOOD COUNT 4.01 M/UL (4.20-5.40); RED CELL DISTRIBUTION WIDTH 12.5 % (11.6-14.8); WHITE BLOOD COUNT 9.9 K/UL (4.8-10.8)
[2018-03-02 08:00] VITALS: BP 98/59
[2018-03-02 08:00] LABS: INR 1.7 (0.9-1.1)
[2018-03-02] MEDS: Lactobacillus-GG tablet GT SCH ×2 (08:18→17:40)
[2018-03-02] MEDS: Pantoprazole Inj IVP SCH (08:18)
[2018-03-02] MEDS: levETIRAcetam 500mg/5ml Liquid GT SCH ×2 (08:20→21:01)
[2018-03-02] MEDS: Multivitamins W/Minerals 15 ML UDC GT SCH (08:20)
[2018-03-02 08:28] LABS: ALANINE AMINOTRANSFERASE 32 U/L (12-78); ALBUMIN 3.2 G/DL (3.4-5.0); ALBUMIN/GLOBULIN RATIO 0.7 (1.0-2.7); ALKALINE PHOSPHATASE 114 U/L (46-116); ANION GAP 9 mmol/L (5-15); ASPARTATE AMINO TRANSFERASE 35 U/L (15-37); BILIRUBIN,TOTAL 0.8 MG/DL (0.2-1.0); BLOOD UREA NITROGEN 39 mg/dL (7-18); CALCIUM 9.2 MG/DL (8.5-10.1); CARBON DIOXIDE 34 MMOL/L (21-32); CHLORIDE 97 MMOL/L (98-107); CREATININE 1.2 MG/DL (0.55-1.30); POTASSIUM 3.1 MMOL/L (3.5-5.1); SODIUM 140 MMOL/L (136-145)
[2018-03-02] MEDS: Docusate 100mg/10ml Liq GT SCH (10:45)
--- NOTE | 2018-03-02 10:55 | GI Progress Note ---
Assessment/Plan Problems: (1) Gastrojejunostomy tube dislodgement ICD Codes: Z43.4 - Encounter for attention to other artificial openings of digestive tract SNOMED: 947319312 (2) Protein calorie malnutrition ICD Codes: E46 - Unspecified protein-calorie malnutrition SNOMED: 322528945 (3) Anemia ICD Codes: D64.9 - Anemia, unspecified SNOMED: 343164191 Status: stable Status Narrative Discussed with Dr. Quigley. Assessment/Plan KUB d/w with radiologist >> GT is in the correct position with no backflow or leaks OB stool negative GTFs per RD GT site care daily/prn iron deficiency >> venofer monitor H&H, prn transfusions electrolyte replacement bowel regime ppi fu labs okay for DC per GI standpoint The patient was seen and examined at bedside and all new and available data was reviewed in the patients chart. I agree with the above findings, impression and plan. (Patient seen earlier today. Signature stamp does not reflect patient encounter time.). - Willian Quigley MD Subjective Subjective limited Objective Last 24 Hour Vital Signs Date Time Temp Pulse Resp B/P (MAP) Pulse Ox O2 Delivery O2 Flow Rate FiO2 03/02/18 08:00 80 03/02/18 08:00 97.7 76 20 98/59 97 Nasal Cannula 2.0 97.7 03/02/18 04:00 96.6 70 20 107/52 97 Nasal Cannula 2.0 96.6 03/02/18 03:53 73 03/02/18 00:00 97.7 75 20 112/53 92 Nasal Cannula 2.0 97.7 03/02/18 00:00 76 03/01/18 22:00 81 03/01/18 20:00 97.7 76 20 110/46 96 Nasal Cannula 2.0 97.7 03/01/18 18:24 Nasal Cannula 2.0 28 03/01/18 18:23 96 Nasal Cannula 2.0 28 03/01/18 16:00 98.4 71 20 127/52 97 Nasal Cannula 2.0 98.4 03/01/18 16:00 66 03/01/18 12:00 97.2 71 20 114/57 99 Nasal Cannula 2.0 97.2 03/01/18 12:00 69 Intake and Output 03/01/18 03/02/18 19:00 07:00 Intake Total 550 ml Balance 550 ml Intake Free Water 100 ml Tube Feeding 450 ml # Voids 3 # Bowel Movements 1 Laboratory Tests Test 03/02/18 06:50 White Blood Count 9.9 K/UL (4.8-10.8) Red Blood Count 4.01 M/UL (4.20-5.40) L Hemoglobin 12.2 G/DL (12.0-16.0) Hematocrit 36.1 % (37.0-47.0) L Mean Corpuscular Volume 90 FL (80-99) Mean Corpuscular Hemoglobin 30.5 PG (27.0-31.0) Mean Corpuscular Hemoglobin Concent 33.8 G/DL (32.0-36.0) Red Cell Distribution Width 12.5 % (11.6-14.8) Platelet Count 322 K/UL (150-450) Mean Platelet Volume 7.0 FL (6.5-10.1) Neutrophils (%) (Auto) 69.7 % (45.0-75.0) Lymphocytes (%) (Auto) 20.5 % (20.0-45.0) Monocytes (%) (Auto) 7.0 % (1.0-10.0) Eosinophils (%) (Auto) 1.9 % (0.0-3.0) Basophils (%) (Auto) 0.9 % (0.0-2.0) Prothrombin Time 18.4 SEC (9.30-11.50) H Prothromb Time International Ratio 1.7 (0.9-1.1) H Sodium Level 140 MMOL/L (136-145) Potassium Level 3.1 MMOL/L (3.5-5.1) L Chloride Level 97 MMOL/L (98-107) L Carbon Dioxide Level 34 MMOL/L (21-32) H Anion Gap 9 mmol/L (5-15) Blood Urea Nitrogen 39 mg/dL (7-18) H Creatinine 1.2 MG/DL (0.55-1.30) Estimat Glomerular Filtration Rate mL/min (>60) Glucose Level 113 MG/DL (74-106) H Calcium Level 9.2 MG/DL (8.5-10.1) Total Bilirubin 0.8 MG/DL (0.2-1.0) Aspartate Amino Transf (AST/SGOT) 35 U/L (15-37) Alanine Aminotransferase (ALT/SGPT) 32 U/L (12-78) Alkaline Phosphatase 114 U/L (46-116) Pro-B-Type Natriuretic Peptide 1357 pg/mL (0-125) H Total Protein 7.8 G/DL (6.4-8.2) Albumin 3.2 G/DL (3.4-5.0) L Globulin 4.6 g/dL Albumin/Globulin Ratio 0.7 (1.0-2.7) L Height (Feet): 5 Height (Inches): 4.00 Weight (Pounds): 137 General Appearance: WD/WN, no apparent distress, alert Cardiovascular: normal rate Respiratory/Chest: normal breath sounds, no respiratory distress Abdominal Exam: normal bowel sounds, non tender, soft, GT site - c/d/i Extremities: non-tender Hilton Goldman NP March 02, 2018 10:55
--- NOTE | 2018-03-02 10:56 | Diagnostic Imaging Report ---
Indication: Dyspnea Comparison: 02/22/2018 A single view chest radiograph was obtained. Findings: Interstitial opacities are noted with prominent vascularity and heart size. Findings are unchanged. Sternotomy noted. IVC filter is present. IMPRESSION: No significant change. Interstitial disease nonspecific. Some degree of CHF may be present. Correlate clinically.
[2018-03-02 12:00] VITALS: BP 108/54
--- NOTE | 2018-03-02 12:53 | Infectious Diseases Prog Note ---
Assessment/Plan Assessment/Plan A 1. pneumonia treated 2. influenza B URI treated 3. staph coagulase negative bacteremia, 4. atrial fibrillation 5. hypertension 6- prosthetic mitral valve, ? infective endocarditis P 1. continue vancomycin iv, Subjective ROS Limited/Unobtainable: Yes Allergies: Coded Allergies: No Known Allergies (Unverified , 02/20/18) Objective Vital Signs Last 24 Hour Vital Signs Date Time Temp Pulse Resp B/P (MAP) Pulse Ox O2 Delivery O2 Flow Rate FiO2 03/02/18 12:00 97.7 73 18 108/54 98 Nasal Cannula 2.0 97.7 03/02/18 08:00 80 03/02/18 08:00 97.7 76 20 98/59 97 Nasal Cannula 2.0 97.7 03/02/18 04:00 96.6 70 20 107/52 97 Nasal Cannula 2.0 96.6 03/02/18 03:53 73 03/02/18 00:00 97.7 75 20 112/53 92 Nasal Cannula 2.0 97.7 03/02/18 00:00 76 03/01/18 22:00 81 03/01/18 20:00 97.7 76 20 110/46 96 Nasal Cannula 2.0 97.7 03/01/18 18:24 Nasal Cannula 2.0 28 03/01/18 18:23 96 Nasal Cannula 2.0 28 03/01/18 16:00 98.4 71 20 127/52 97 Nasal Cannula 2.0 98.4 03/01/18 16:00 66 Height (Feet): 5 Height (Inches): 4.00 Weight (Pounds): 137 General Appearance: no acute distress HEENT: mucous membranes moist Respiratory/Chest: rhonchi - bilaterally Cardiovascular: normal rate Abdomen: soft, non tender, other - GT feeding Extremities: no edema Neurologic/Psychiatric: aphasia Laboratory Tests Test 03/02/18 06:50 White Blood Count 9.9 K/UL (4.8-10.8) Red Blood Count 4.01 M/UL (4.20-5.40) L Hemoglobin 12.2 G/DL (12.0-16.0) Hematocrit 36.1 % (37.0-47.0) L Mean Corpuscular Volume 90 FL (80-99) Mean Corpuscular Hemoglobin 30.5 PG (27.0-31.0) Mean Corpuscular Hemoglobin Concent 33.8 G/DL (32.0-36.0) Red Cell Distribution Width 12.5 % (11.6-14.8) Platelet Count 322 K/UL (150-450) Mean Platelet Volume 7.0 FL (6.5-10.1) Neutrophils (%) (Auto) 69.7 % (45.0-75.0) Lymphocytes (%) (Auto) 20.5 % (20.0-45.0) Monocytes (%) (Auto) 7.0 % (1.0-10.0) Eosinophils (%) (Auto) 1.9 % (0.0-3.0) Basophils (%) (Auto) 0.9 % (0.0-2.0) Prothrombin Time 18.4 SEC (9.30-11.50) H Prothromb Time International Ratio 1.7 (0.9-1.1) H Sodium Level 140 MMOL/L (136-145) Potassium Level 3.1 MMOL/L (3.5-5.1) L Chloride Level 97 MMOL/L (98-107) L Carbon Dioxide Level 34 MMOL/L (21-32) H Anion Gap 9 mmol/L (5-15) Blood Urea Nitrogen 39 mg/dL (7-18) H Creatinine 1.2 MG/DL (0.55-1.30) Estimat Glomerular Filtration Rate mL/min (>60) Glucose Level 113 MG/DL (74-106) H Calcium Level 9.2 MG/DL (8.5-10.1) Total Bilirubin 0.8 MG/DL (0.2-1.0) Aspartate Amino Transf (AST/SGOT) 35 U/L (15-37) Alanine Aminotransferase (ALT/SGPT) 32 U/L (12-78) Alkaline Phosphatase 114 U/L (46-116) Pro-B-Type Natriuretic Peptide 1357 pg/mL (0-125) H Total Protein 7.8 G/DL (6.4-8.2) Albumin 3.2 G/DL (3.4-5.0) L Globulin 4.6 g/dL Albumin/Globulin Ratio 0.7 (1.0-2.7) L Current Medications Medications (Trade) Dose Ordered Sig/Lanie Route PRN Reason Start Time Stop Time Status Last Admin Dose Admin Artificial Tears (Akwa-Tears) 1 drop Q3H PRN BOTH EYES Dry Eyes 02/22/18 21:00 03/22/18 20:59 Atorvastatin Calcium (Lipitor) 20 mg BEDTIME GT 02/22/18 21:00 03/23/18 20:59 03/01/18 20:29 Bisacodyl (Dulcolax) 10 mg DAILYPRN PRN RECTAL Constipation 02/22/18 21:00 03/24/18 20:59 Docusate Sodium (Colace) 100 mg DAILY GT 03/02/18 10:45 04/01/18 10:44 Enoxaparin Sodium (Lovenox) 60 mg BEDTIME SUBQ 03/01/18 23:00 03/31/18 22:59 03/01/18 23:27 Furosemide (Lasix) 20 mg Q12HR IV 02/22/18 21:00 03/22/18 20:59 03/02/18 08:18 Guaifenesin (Robitussin) 300 mg Q4H PRN GT For Cough 02/22/18 21:00 03/22/18 20:59 Lactobacillus Acidophilus (Culturelle) 1 tab BID GT 02/23/18 09:00 03/23/18 08:59 03/02/18 08:18 Levetiracetam (Keppra) 250 mg QHS GT 02/22/18 21:00 03/23/18 20:59 03/01/18 20:29 Levetiracetam (Keppra) 500 mg DAILY GT 02/23/18 09:00 03/23/18 08:59 03/02/18 08:20 Multivitamins (Multivitamins W/ Minerals 15ml Liquid) 15 ml DAILY GT 02/23/18 09:00 03/23/18 08:59 03/02/18 08:20 Pantoprazole (Protonix) 40 mg DAILY IVP 02/23/18 09:00 03/25/18 08:59 03/02/18 08:18 Sennosides (Senokot) 2 tab QHS GT 02/22/18 21:00 03/23/18 21:16 03/01/18 20:29 Sertraline HCl (Zoloft) 25 mg Q48H GT 02/25/18 09:00 03/27/18 08:59 03/01/18 09:48 Vancomycin HCl (Vanco rx to dose) 1 ea DAILY PRN MISC Per rx protocol 02/24/18 11:00 03/26/18 10:59 Vancomycin HCl 500 mg/Dextrose 110 ml @ 110 mls/hr Q24H IVPB 03/01/18 18:00 03/06/18 17:59 03/01/18 17:30 Warfarin Sodium (Coumadin per pharmacy) 1 ea DAILY PRN MISC Per rx protocol 02/23/18 09:00 03/23/18 19:14 Warfarin Sodium (Coumadin) 5.5 mg COUMADIN ONCE ORAL 03/02/18 17:00 03/02/18 17:01 Torey Ramirez MD March 02, 2018 12:53
[2018-03-02] MEDS ORDERED: Heparin 2000 units/Ns 1000ml INJ PRN (13:00)
[2018-03-02] MEDS ORDERED: Lidocaine 1% Plain 30 ml INJ PRN (13:00)
--- NOTE | 2018-03-02 14:02 | Pulmonology Progress Note ---
Assessment/Plan Problems: (1) CHF (congestive heart failure) (2) Influenza B (3) Bronchospasm (4) Pulmonary edema (5) Fever (6) UTI (urinary tract infection) (7) Staphylococcus aureus bacteremia Assessment & Plan: Assumed to be 2/2 PVE, unable to do BLAIRE, awaiting PICC (8) Gastrostomy tube in place (9) CVA (cerebral vascular accident) Assessment/Plan -Optimize pulmonary hygiene/mobilize as tolerated -Titrate down FiO2 to keep SaO2 > 90% -RTC and PRN HHN's -IV Vanco per ID, will hold off BLAIRE given frailty and treat as PVE -Monitor volumes and renal function -Diuresis as able -F/U cards recs -TF's as tolerated -Continue A/C -DNAR/DNI, BiPAP ok Subjective Allergies: Coded Allergies: No Known Allergies (Unverified , 02/20/18) Subjective Events reviewed, AFVSS, stable O2 needs, CXR unchanged BLAIRE cancelled, awaiting PICC No cough, no SOB, no F/C Objective Last 24 Hour Vital Signs Date Time Temp Pulse Resp B/P (MAP) Pulse Ox O2 Delivery O2 Flow Rate FiO2 03/02/18 12:00 97.7 73 18 108/54 98 Nasal Cannula 2.0 97.7 03/02/18 08:00 80 03/02/18 08:00 97.7 76 20 98/59 97 Nasal Cannula 2.0 97.7 03/02/18 04:00 96.6 70 20 107/52 97 Nasal Cannula 2.0 96.6 03/02/18 03:53 73 03/02/18 00:00 97.7 75 20 112/53 92 Nasal Cannula 2.0 97.7 03/02/18 00:00 76 03/01/18 22:00 81 03/01/18 20:00 97.7 76 20 110/46 96 Nasal Cannula 2.0 97.7 03/01/18 18:24 Nasal Cannula 2.0 28 03/01/18 18:23 96 Nasal Cannula 2.0 28 03/01/18 16:00 98.4 71 20 127/52 97 Nasal Cannula 2.0 98.4 03/01/18 16:00 66 Intake and Output 03/01/18 03/02/18 19:00 07:00 Intake Total 550 ml Balance 550 ml Intake Free Water 100 ml Tube Feeding 450 ml # Voids 3 # Bowel Movements 1 General Appearance: cachetic, other - frail, minimally verbal HEENT: normocephalic, atraumatic, anicteric, mucous membranes moist Respiratory/Chest: chest wall non-tender, lungs clear, normal breath sounds, no respiratory distress Cardiovascular: normal peripheral pulses, normal rate, regular rhythm Abdomen: normal bowel sounds, soft, non tender, no organomegaly, non distended , other - GT Extremities: no cyanosis, no clubbing, no edema Laboratory Tests 03/02/18 06:50: White Blood Count 9.9, Red Blood Count 4.01L, Hemoglobin 12.2, Hematocrit 36.1L , Mean Corpuscular Volume 90, Mean Corpuscular Hemoglobin 30.5, Mean Corpuscular Hemoglobin Concent 33.8, Red Cell Distribution Width 12.5, Platelet Count 322, Mean Platelet Volume 7.0, Neutrophils (%) (Auto) 69.7, Lymphocytes (% ) (Auto) 20.5, Monocytes (%) (Auto) 7.0, Eosinophils (%) (Auto) 1.9, Basophils ( %) (Auto) 0.9, Prothrombin Time 18.4H, Prothromb Time International Ratio 1.7H, Sodium Level 140, Potassium Level 3.1L, Chloride Level 97L, Carbon Dioxide Level 34H, Anion Gap 9, Blood Urea Nitrogen 39H, Creatinine 1.2, Estimat Glomerular Filtration Rate , Glucose Level 113H, Calcium Level 9.2, Total Bilirubin 0.8, Aspartate Amino Transf (AST/SGOT) 35, Alanine Aminotransferase ( ALT/SGPT) 32, Alkaline Phosphatase 114, Pro-B-Type Natriuretic Peptide 1357H, Total Protein 7.8, Albumin 3.2L, Globulin 4.6, Albumin/Globulin Ratio 0.7L Current Medications Medications (Trade) Dose Ordered Sig/Lanie Route PRN Reason Start Time Stop Time Status Last Admin Dose Admin Artificial Tears (Akwa-Tears) 1 drop Q3H PRN BOTH EYES Dry Eyes 02/22/18 21:00 03/22/18 20:59 Atorvastatin Calcium (Lipitor) 20 mg BEDTIME GT 02/22/18 21:00 03/23/18 20:59 03/01/18 20:29 Bisacodyl (Dulcolax) 10 mg DAILYPRN PRN RECTAL Constipation 02/22/18 21:00 03/24/18 20:59 Chlorhexidine Gluconate (Luz-Hex 2%) 1 applic DAILY@2000 TOPIC 03/02/18 20:00 04/01/18 19:59 Docusate Sodium (Colace) 100 mg DAILY GT 03/02/18 10:45 04/01/18 10:44 Enoxaparin Sodium (Lovenox) 60 mg BEDTIME SUBQ 03/01/18 23:00 03/31/18 22:59 03/01/18 23:27 Furosemide (Lasix) 20 mg Q12HR IV 02/22/18 21:00 03/22/18 20:59 03/02/18 08:18 Guaifenesin (Robitussin) 300 mg Q4H PRN GT For Cough 02/22/18 21:00 03/22/18 20:59 Heparin Sodium/ Sodium Chloride (Heparin 2000 units/Ns 1000ml premix) 2,000 unit ONCE PRN INJ PICC line placement 03/02/18 13:00 03/03/18 23:59 Lactobacillus Acidophilus (Culturelle) 1 tab BID GT 02/23/18 09:00 03/23/18 08:59 03/02/18 08:18 Levetiracetam (Keppra) 250 mg QHS GT 02/22/18 21:00 03/23/18 20:59 03/01/18 20:29 Levetiracetam (Keppra) 500 mg DAILY GT 02/23/18 09:00 03/23/18 08:59 03/02/18 08:20 Lidocaine HCl (Xylocaine 1% 30ml) 30 ml ONCE PRN INJ PICC line placement 03/02/18 13:00 03/03/18 23:59 Multivitamins (Multivitamins W/ Minerals 15ml Liquid) 15 ml DAILY GT 02/23/18 09:00 03/23/18 08:59 03/02/18 08:20 Pantoprazole (Protonix) 40 mg DAILY IVP 02/23/18 09:00 03/25/18 08:59 03/02/18 08:18 Sennosides (Senokot) 2 tab QHS GT 02/22/18 21:00 03/23/18 21:16 03/01/18 20:29 Sertraline HCl (Zoloft) 25 mg Q48H GT 02/25/18 09:00 03/27/18 08:59 03/01/18 09:48 Vancomycin HCl (Vanco rx to dose) 1 ea DAILY PRN MISC Per rx protocol 02/24/18 11:00 03/26/18 10:59 Vancomycin HCl 500 mg/Dextrose 110 ml @ 110 mls/hr Q24H IVPB 03/01/18 18:00 03/06/18 17:59 03/01/18 17:30 Warfarin Sodium (Coumadin per pharmacy) 1 ea DAILY PRN MISC Per rx protocol 02/23/18 09:00 03/23/18 19:14 Warfarin Sodium (Coumadin) 5.5 mg COUMADIN ONCE ORAL 03/02/18 17:00 03/02/18 17:01 Lewis Galvez MD March 02, 2018 14:02
[2018-03-02] MEDS ORDERED: Albuterol/Ipratropium 3ml neb HHN PRN (14:15)
--- NOTE | 2018-03-02 15:33 | Cardiac Electrophysiology PN ---
Assessment/Plan Assessment/Plan 1. CHF due to diastolic dysfunction. Ejection fraction is within normal level. Continue Lasix. 2. Paroxysmal atrial fibrillation, on Coumadin with INR goal of 2 to 3. INR today 1.7. Remained in SR on tele. 3. NSVT 13 beats. Nl EF no ND. No syncope. No further after hypokalemia corrected. 4. Severe hypokalemia Potassium was replaced 5. Dysphagia, status post PEG 6. Chronic obstructive pulmonary disease, on vancomycin 7. Advanced dementia. 8. Coag neg staph sepsis r/o Endocarditis. 9. S/P Prosthetic Mitral Valve replacement. BLAIRE pending. If unable to have BLAIRE, treat as endocarditis with 6 weeks of iv abx per Dr. Torey Ramirez. DW RN KATHY Ramirez Subjective Subjective Comfortable in NAD. In SR. Not scheduled for BLAIRE yest Objective Last 24 Hour Vital Signs Date Time Temp Pulse Resp B/P (MAP) Pulse Ox O2 Delivery O2 Flow Rate FiO2 03/02/18 12:00 65 03/02/18 12:00 97.7 73 18 108/54 98 Nasal Cannula 2.0 97.7 03/02/18 08:00 80 03/02/18 08:00 97.7 76 20 98/59 97 Nasal Cannula 2.0 97.7 03/02/18 04:00 96.6 70 20 107/52 97 Nasal Cannula 2.0 96.6 03/02/18 03:53 73 03/02/18 00:00 97.7 75 20 112/53 92 Nasal Cannula 2.0 97.7 03/02/18 00:00 76 03/01/18 22:00 81 03/01/18 20:00 97.7 76 20 110/46 96 Nasal Cannula 2.0 97.7 03/01/18 18:24 Nasal Cannula 2.0 28 03/01/18 18:23 96 Nasal Cannula 2.0 28 03/01/18 16:00 98.4 71 20 127/52 97 Nasal Cannula 2.0 98.4 03/01/18 16:00 66 Intake and Output 03/01/18 03/02/18 19:00 07:00 Intake Total 550 ml Balance 550 ml Intake Free Water 100 ml Tube Feeding 450 ml # Voids 3 # Bowel Movements 1 Laboratory Tests Test 03/02/18 06:50 White Blood Count 9.9 K/UL (4.8-10.8) Red Blood Count 4.01 M/UL (4.20-5.40) L Hemoglobin 12.2 G/DL (12.0-16.0) Hematocrit 36.1 % (37.0-47.0) L Mean Corpuscular Volume 90 FL (80-99) Mean Corpuscular Hemoglobin 30.5 PG (27.0-31.0) Mean Corpuscular Hemoglobin Concent 33.8 G/DL (32.0-36.0) Red Cell Distribution Width 12.5 % (11.6-14.8) Platelet Count 322 K/UL (150-450) Mean Platelet Volume 7.0 FL (6.5-10.1) Neutrophils (%) (Auto) 69.7 % (45.0-75.0) Lymphocytes (%) (Auto) 20.5 % (20.0-45.0) Monocytes (%) (Auto) 7.0 % (1.0-10.0) Eosinophils (%) (Auto) 1.9 % (0.0-3.0) Basophils (%) (Auto) 0.9 % (0.0-2.0) Prothrombin Time 18.4 SEC (9.30-11.50) H Prothromb Time International Ratio 1.7 (0.9-1.1) H Sodium Level 140 MMOL/L (136-145) Potassium Level 3.1 MMOL/L (3.5-5.1) L Chloride Level 97 MMOL/L (98-107) L Carbon Dioxide Level 34 MMOL/L (21-32) H Anion Gap 9 mmol/L (5-15) Blood Urea Nitrogen 39 mg/dL (7-18) H Creatinine 1.2 MG/DL (0.55-1.30) Estimat Glomerular Filtration Rate mL/min (>60) Glucose Level 113 MG/DL (74-106) H Calcium Level 9.2 MG/DL (8.5-10.1) Total Bilirubin 0.8 MG/DL (0.2-1.0) Aspartate Amino Transf (AST/SGOT) 35 U/L (15-37) Alanine Aminotransferase (ALT/SGPT) 32 U/L (12-78) Alkaline Phosphatase 114 U/L (46-116) Pro-B-Type Natriuretic Peptide 1357 pg/mL (0-125) H Total Protein 7.8 G/DL (6.4-8.2) Albumin 3.2 G/DL (3.4-5.0) L Globulin 4.6 g/dL Albumin/Globulin Ratio 0.7 (1.0-2.7) L Objective HEAD AND NECK: No JVD. LUNGS: Coarse rhonchi. CARDIOVASCULAR: Regular S1 and S2 . 2/6 murmur. ABDOMEN: G-tube EXTREMITIES: 1+ pitting edema. Arslan Fowler MD March 02, 2018 15:33
[2018-03-02 16:00] VITALS: BP 105/52
[2018-03-02] MEDS ORDERED: WARFARIN SOD ORAL ONE ×2 (17:00)
[2018-03-02] MEDS: Vancomycin 500 MG in D5W 110 ML IVPB SCH (17:40)
[2018-03-02 20:00] VITALS: BP 115/47
[2018-03-02] MEDS: Sennosides 8.6mg GT SCH ×2 (21:00→21:01)
[2018-03-02] MEDS: Atorvastatin 20mg tab GT SCH (21:01)
[2018-03-02] MEDS: Dyna-Hex 2% Top Sol 2oz TOPIC SCH (21:01)
[2018-03-02] MEDS: Enoxaparin 60mg Inj SUBQ SCH (21:03)
--- NOTE | 2018-03-02 22:01 | General Progress Note ---
Assessment/Plan Assessment/Plan chf sepsis staph influenza b fevers afib artificial valve diuresis on nc pulmonary eval appreciated pulmonary hygiene on tamiflu on abx per ID duration noted dw dr silverio states he has ordered BLAIRE to rulout prosthtic valve endocarditis gi eval appreciated dc when cleared by cardiology Subjective Allergies: Coded Allergies: No Known Allergies (Unverified , 02/20/18) Subjective awake alert more comortable no cp Objective Last 24 Hour Vital Signs Date Time Temp Pulse Resp B/P (MAP) Pulse Ox O2 Delivery O2 Flow Rate FiO2 03/02/18 20:01 95 Nasal Cannula 2.0 28 03/02/18 20:01 Nasal Cannula 2.0 28 03/02/18 20:01 71 18 Nasal Cannula 2.0 28 03/02/18 20:00 98.0 70 20 115/47 99 Nasal Cannula 2.0 98.0 03/02/18 20:00 70 03/02/18 16:00 70 03/02/18 16:00 97.7 72 20 105/52 96 Nasal Cannula 2.0 97.7 03/02/18 12:00 65 03/02/18 12:00 97.7 73 18 108/54 98 Nasal Cannula 2.0 97.7 03/02/18 08:00 80 03/02/18 08:00 97.7 76 20 98/59 97 Nasal Cannula 2.0 97.7 03/02/18 04:00 96.6 70 20 107/52 97 Nasal Cannula 2.0 96.6 03/02/18 03:53 73 03/02/18 00:00 97.7 75 20 112/53 92 Nasal Cannula 2.0 97.7 03/02/18 00:00 76 03/01/18 22:00 81 Intake and Output 03/01/18 03/02/18 19:00 07:00 Intake Total 550 ml Balance 550 ml Intake Free Water 100 ml Tube Feeding 450 ml # Voids 3 # Bowel Movements 1 Laboratory Tests 03/02/18 06:50: White Blood Count 9.9, Red Blood Count 4.01L, Hemoglobin 12.2, Hematocrit 36.1L , Mean Corpuscular Volume 90, Mean Corpuscular Hemoglobin 30.5, Mean Corpuscular Hemoglobin Concent 33.8, Red Cell Distribution Width 12.5, Platelet Count 322, Mean Platelet Volume 7.0, Neutrophils (%) (Auto) 69.7, Lymphocytes (% ) (Auto) 20.5, Monocytes (%) (Auto) 7.0, Eosinophils (%) (Auto) 1.9, Basophils ( %) (Auto) 0.9, Prothrombin Time 18.4H, Prothromb Time International Ratio 1.7H, Sodium Level 140, Potassium Level 3.1L, Chloride Level 97L, Carbon Dioxide Level 34H, Anion Gap 9, Blood Urea Nitrogen 39H, Creatinine 1.2, Estimat Glomerular Filtration Rate , Glucose Level 113H, Calcium Level 9.2, Total Bilirubin 0.8, Aspartate Amino Transf (AST/SGOT) 35, Alanine Aminotransferase ( ALT/SGPT) 32, Alkaline Phosphatase 114, Pro-B-Type Natriuretic Peptide 1357H, Total Protein 7.8, Albumin 3.2L, Globulin 4.6, Albumin/Globulin Ratio 0.7L Height (Feet): 5 Height (Inches): 4.00 Weight (Pounds): 137 General Appearance: WD/WN Neck: supple Cardiovascular: irregularly irregular Respiratory/Chest: lungs clear Abdomen: soft Objective pos gtube slight swellin on the left iside of it no leakage noted contracteded le 1 plus edema hemiparesis Darrion Obrien MD March 02, 2018 22:01
[2018-03-03] VITALS: BP 116/53
[2018-03-03 04:00] VITALS: BP 127/53
[2018-03-03 06:14] LABS: BASOPHILS % (AUTO) 0.8 % (0.0-2.0); EOSINOPHILS % (AUTO) 1.3 % (0.0-3.0); HEMATOCRIT 32.9 % (37.0-47.0); HEMOGLOBIN 11.2 G/DL (12.0-16.0); LYMPHOCYTES % (AUTO) 20.9 % (20.0-45.0); MEAN CORPUSCULAR VOLUME 91 FL (80-99); NEUTROPHILS % (AUTO) 67.9 % (45.0-75.0); PLATELET COUNT 267 K/UL (150-450); RED BLOOD COUNT 3.62 M/UL (4.20-5.40); RED CELL DISTRIBUTION WIDTH 13.3 % (11.6-14.8); WHITE BLOOD COUNT 8.5 K/UL (4.8-10.8)
[2018-03-03 06:24] LABS: INR 2.1 (0.9-1.1)
[2018-03-03 06:25] LABS: ANION GAP 4 mmol/L (5-15); BLOOD UREA NITROGEN 38 mg/dL (7-18); CALCIUM 9.2 MG/DL (8.5-10.1); CARBON DIOXIDE 37 MMOL/L (21-32); CHLORIDE 98 MMOL/L (98-107); CREATININE 1.2 MG/DL (0.55-1.30); POTASSIUM 3.7 MMOL/L (3.5-5.1); SODIUM 139 MMOL/L (136-145)
[2018-03-03 08:00] VITALS: BP 127/50
[2018-03-03] MEDS: Lactobacillus-GG tablet GT SCH ×2 (08:52→17:04)
[2018-03-03] MEDS: Sertraline 50mg tab GT SCH (08:52)
[2018-03-03] MEDS: levETIRAcetam 500mg/5ml Liquid GT SCH ×2 (08:53→20:43)
[2018-03-03] MEDS: Docusate 100mg/10ml Liq GT SCH (08:53)
[2018-03-03] MEDS: Multivitamins W/Minerals 15 ML UDC GT SCH (08:53)
[2018-03-03] MEDS: Pantoprazole Inj IVP SCH (08:53)
--- NOTE | 2018-03-03 10:43 | GI Progress Note ---
Assessment/Plan Problems: (1) Gastrojejunostomy tube dislodgement ICD Codes: Z43.4 - Encounter for attention to other artificial openings of digestive tract SNOMED: 863111639 (2) Protein calorie malnutrition ICD Codes: E46 - Unspecified protein-calorie malnutrition SNOMED: 167351228 (3) Anemia ICD Codes: D64.9 - Anemia, unspecified SNOMED: 265943413 Status: stable Status Narrative Discussed with Dr. Quigley. Assessment/Plan KUB d/w with radiologist >> GT is in the correct position with no backflow or leaks OB stool negative GTFs per RD GT site care daily/prn iron deficiency >> venofer monitor H&H, prn transfusions electrolyte replacement bowel regime ppi fu labs okay for DC per GI standpoint The patient was seen and examined at bedside and all new and available data was reviewed in the patients chart. I agree with the above findings, impression and plan. (Patient seen earlier today. Signature stamp does not reflect patient encounter time.). - Willian Quigley MD Subjective Subjective limited Objective Last 24 Hour Vital Signs Date Time Temp Pulse Resp B/P (MAP) Pulse Ox O2 Delivery O2 Flow Rate FiO2 03/03/18 08:00 97.5 69 19 127/50 97 Nasal Cannula 2.0 97.5 03/03/18 07:57 78 18 Nasal Cannula 2.0 28 03/03/18 07:57 94 Nasal Cannula 2.0 28 03/03/18 07:57 Nasal Cannula 2.0 28 03/03/18 04:00 97.5 71 20 127/53 94 Nasal Cannula 2.0 97.5 03/03/18 04:00 68 03/03/18 00:00 66 03/03/18 00:00 98.5 75 20 116/53 99 Nasal Cannula 2.0 98.5 03/02/18 20:01 95 Nasal Cannula 2.0 28 03/02/18 20:01 Nasal Cannula 2.0 28 03/02/18 20:01 71 18 Nasal Cannula 2.0 28 03/02/18 20:00 98.0 70 20 115/47 99 Nasal Cannula 2.0 98.0 03/02/18 20:00 70 03/02/18 16:00 70 03/02/18 16:00 97.7 72 20 105/52 96 Nasal Cannula 2.0 97.7 03/02/18 12:00 65 03/02/18 12:00 97.7 73 18 108/54 98 Nasal Cannula 2.0 97.7 Intake and Output 03/02/18 03/03/18 19:00 07:00 Intake Total 910 ml 260 ml Balance 910 ml 260 ml Intake Free Water 200 ml 60 ml IV Total 110 ml Tube Feeding 600 ml 200 ml # Voids 2 4 # Bowel Movements 1 2 Laboratory Tests Test 03/03/18 06:00 White Blood Count 8.5 K/UL (4.8-10.8) Red Blood Count 3.62 M/UL (4.20-5.40) L Hemoglobin 11.2 G/DL (12.0-16.0) L Hematocrit 32.9 % (37.0-47.0) L Mean Corpuscular Volume 91 FL (80-99) Mean Corpuscular Hemoglobin 31.0 PG (27.0-31.0) Mean Corpuscular Hemoglobin Concent 34.2 G/DL (32.0-36.0) Red Cell Distribution Width 13.3 % (11.6-14.8) Platelet Count 267 K/UL (150-450) Mean Platelet Volume 7.1 FL (6.5-10.1) Neutrophils (%) (Auto) 67.9 % (45.0-75.0) Lymphocytes (%) (Auto) 20.9 % (20.0-45.0) Monocytes (%) (Auto) 9.0 % (1.0-10.0) Eosinophils (%) (Auto) 1.3 % (0.0-3.0) Basophils (%) (Auto) 0.8 % (0.0-2.0) Prothrombin Time 21.8 SEC (9.30-11.50) H Prothromb Time International Ratio 2.1 (0.9-1.1) H Sodium Level 139 MMOL/L (136-145) Potassium Level 3.7 MMOL/L (3.5-5.1) Chloride Level 98 MMOL/L (98-107) Carbon Dioxide Level 37 MMOL/L (21-32) H Anion Gap 4 mmol/L (5-15) L Blood Urea Nitrogen 38 mg/dL (7-18) H Creatinine 1.2 MG/DL (0.55-1.30) Estimat Glomerular Filtration Rate mL/min (>60) Glucose Level 110 MG/DL (74-106) H Calcium Level 9.2 MG/DL (8.5-10.1) Height (Feet): 5 Height (Inches): 4.00 Weight (Pounds): 138 General Appearance: WD/WN, no apparent distress, alert Cardiovascular: normal rate Respiratory/Chest: normal breath sounds, no respiratory distress Abdominal Exam: normal bowel sounds, non tender, soft, GT site - c/d/i Extremities: normal range of motion, non-tender Hilton Goldman NP Mar 03, 2018 10:43
--- NOTE | 2018-03-03 11:07 | Infectious Diseases Prog Note ---
Assessment/Plan Assessment/Plan antibiotics : iv vancomycin A 1. coag neg staph sepsis r/o PVE 2. influenza B URI s/p rx 3. anemia 4. atrial fibrillation 5. hypertension P 1. continue vancomycin iv 31 more days 2. will follow up cultures Subjective ROS Limited/Unobtainable: Yes Allergies: Coded Allergies: No Known Allergies (Unverified , 02/20/18) Objective Vital Signs Last 24 Hour Vital Signs Date Time Temp Pulse Resp B/P (MAP) Pulse Ox O2 Delivery O2 Flow Rate FiO2 03/03/18 08:00 97.5 69 19 127/50 97 Nasal Cannula 2.0 97.5 03/03/18 07:57 78 18 Nasal Cannula 2.0 28 03/03/18 07:57 94 Nasal Cannula 2.0 28 03/03/18 07:57 Nasal Cannula 2.0 28 03/03/18 04:00 97.5 71 20 127/53 94 Nasal Cannula 2.0 97.5 03/03/18 04:00 68 03/03/18 00:00 66 03/03/18 00:00 98.5 75 20 116/53 99 Nasal Cannula 2.0 98.5 03/02/18 20:01 95 Nasal Cannula 2.0 28 03/02/18 20:01 Nasal Cannula 2.0 28 03/02/18 20:01 71 18 Nasal Cannula 2.0 28 03/02/18 20:00 98.0 70 20 115/47 99 Nasal Cannula 2.0 98.0 03/02/18 20:00 70 03/02/18 16:00 70 03/02/18 16:00 97.7 72 20 105/52 96 Nasal Cannula 2.0 97.7 03/02/18 12:00 65 03/02/18 12:00 97.7 73 18 108/54 98 Nasal Cannula 2.0 97.7 Height (Feet): 5 Height (Inches): 4.00 Weight (Pounds): 138 Respiratory/Chest: lungs clear Cardiovascular: normal rate, regular rhythm, no gallop/murmur Abdomen: soft, non tender, other - GT Extremities: no edema Laboratory Tests Test 03/03/18 06:00 White Blood Count 8.5 K/UL (4.8-10.8) Red Blood Count 3.62 M/UL (4.20-5.40) L Hemoglobin 11.2 G/DL (12.0-16.0) L Hematocrit 32.9 % (37.0-47.0) L Mean Corpuscular Volume 91 FL (80-99) Mean Corpuscular Hemoglobin 31.0 PG (27.0-31.0) Mean Corpuscular Hemoglobin Concent 34.2 G/DL (32.0-36.0) Red Cell Distribution Width 13.3 % (11.6-14.8) Platelet Count 267 K/UL (150-450) Mean Platelet Volume 7.1 FL (6.5-10.1) Neutrophils (%) (Auto) 67.9 % (45.0-75.0) Lymphocytes (%) (Auto) 20.9 % (20.0-45.0) Monocytes (%) (Auto) 9.0 % (1.0-10.0) Eosinophils (%) (Auto) 1.3 % (0.0-3.0) Basophils (%) (Auto) 0.8 % (0.0-2.0) Prothrombin Time 21.8 SEC (9.30-11.50) H Prothromb Time International Ratio 2.1 (0.9-1.1) H Sodium Level 139 MMOL/L (136-145) Potassium Level 3.7 MMOL/L (3.5-5.1) Chloride Level 98 MMOL/L (98-107) Carbon Dioxide Level 37 MMOL/L (21-32) H Anion Gap 4 mmol/L (5-15) L Blood Urea Nitrogen 38 mg/dL (7-18) H Creatinine 1.2 MG/DL (0.55-1.30) Estimat Glomerular Filtration Rate mL/min (>60) Glucose Level 110 MG/DL (74-106) H Calcium Level 9.2 MG/DL (8.5-10.1) Current Medications Medications (Trade) Dose Ordered Sig/Lanie Route PRN Reason Start Time Stop Time Status Last Admin Dose Admin Albuterol/ Ipratropium (Albuterol/ Ipratropium) 3 ml Q4H PRN HHN Shortness of Breath 03/02/18 14:15 03/07/18 14:14 Artificial Tears (Akwa-Tears) 1 drop Q3H PRN BOTH EYES Dry Eyes 02/22/18 21:00 03/22/18 20:59 Atorvastatin Calcium (Lipitor) 20 mg BEDTIME GT 02/22/18 21:00 03/23/18 20:59 03/02/18 21:01 Bisacodyl (Dulcolax) 10 mg DAILYPRN PRN RECTAL Constipation 02/22/18 21:00 03/24/18 20:59 Chlorhexidine Gluconate (Luz-Hex 2%) 1 applic DAILY@2000 TOPIC 03/02/18 20:00 04/01/18 19:59 03/02/18 21:01 Docusate Sodium (Colace) 100 mg DAILY GT 03/02/18 10:45 04/01/18 10:44 03/03/18 08:53 Enoxaparin Sodium (Lovenox) 60 mg BEDTIME SUBQ 03/01/18 23:00 03/31/18 22:59 03/02/18 21:03 Furosemide (Lasix) 20 mg Q12HR IV 02/22/18 21:00 03/22/18 20:59 03/03/18 08:53 Guaifenesin (Robitussin) 300 mg Q4H PRN GT For Cough 02/22/18 21:00 03/22/18 20:59 Heparin Sodium/ Sodium Chloride (Heparin 2000 units/Ns 1000ml premix) 2,000 unit ONCE PRN INJ PICC line placement 03/02/18 13:00 03/03/18 23:59 Lactobacillus Acidophilus (Culturelle) 1 tab BID GT 02/23/18 09:00 03/23/18 08:59 03/03/18 08:52 Levetiracetam (Keppra) 250 mg QHS GT 02/22/18 21:00 03/23/18 20:59 03/02/18 21:01 Levetiracetam (Keppra) 500 mg DAILY GT 02/23/18 09:00 03/23/18 08:59 03/03/18 08:53 Lidocaine HCl (Xylocaine 1% 30ml) 30 ml ONCE PRN INJ PICC line placement 03/02/18 13:00 03/03/18 23:59 Multivitamins (Multivitamins W/ Minerals 15ml Liquid) 15 ml DAILY GT 02/23/18 09:00 03/23/18 08:59 03/03/18 08:53 Pantoprazole (Protonix) 40 mg DAILY IVP 02/23/18 09:00 03/25/18 08:59 03/03/18 08:53 Sennosides (Senokot) 2 tab QHS GT 02/22/18 21:00 03/23/18 21:16 03/01/18 20:29 Sertraline HCl (Zoloft) 25 mg Q48H GT 02/25/18 09:00 03/27/18 08:59 03/03/18 08:52 Vancomycin HCl (Vanco rx to dose) 1 ea DAILY PRN MISC Per rx protocol 02/24/18 11:00 03/26/18 10:59 Vancomycin HCl 500 mg/Dextrose 110 ml @ 110 mls/hr Q24H IVPB 03/01/18 18:00 03/06/18 17:59 03/02/18 17:40 Warfarin Sodium (Coumadin per pharmacy) 1 ea DAILY PRN MISC Per rx protocol 02/23/18 09:00 03/23/18 19:14 Warfarin Sodium (Coumadin) 6 mg COUMADIN ORAL 03/03/18 17:00 03/03/18 18:00 VIOLETA VOGEL Mar 03, 2018 11:07
[2018-03-03 12:00] VITALS: BP 112/60
--- NOTE | 2018-03-03 13:42 | Cardiac Electrophysiology PN ---
Assessment/Plan Assessment/Plan 1. CHF due to diastolic dysfunction. Ejection fraction is within normal level. Continue Lasix. 2. Paroxysmal atrial fibrillation, on Coumadin with INR goal of 2 to 3. INR today 1.7. Remained in SR on tele. 3. NSVT 13 beats. Nl EF no OH. No syncope. No further after hypokalemia corrected. 4. Severe hypokalemia Potassium was replaced 5. Dysphagia, status post PEG 6. Chronic obstructive pulmonary disease, on vancomycin 7. Advanced dementia. 8. Coag neg staph sepsis r/o Endocarditis. 9. S/P Prosthetic Mitral Valve replacement. BLAIRE pending. If unable to have BLAIRE ( consent issue or feasibilty per the performing manager cardiovascular), treat as endocarditis with 6 weeks of iv abx per Dr. Torey Ramirez. KATHY RN KATHY Ramirez and case management Subjective Subjective Comfortable in NAD. In SR. No Consent for BLAIRE yet Objective Last 24 Hour Vital Signs Date Time Temp Pulse Resp B/P (MAP) Pulse Ox O2 Delivery O2 Flow Rate FiO2 03/03/18 12:00 97.3 70 19 112/60 100 Nasal Cannula 2.0 97.3 03/03/18 08:00 97.5 69 19 127/50 97 Nasal Cannula 2.0 97.5 03/03/18 07:57 78 18 Nasal Cannula 2.0 28 03/03/18 07:57 94 Nasal Cannula 2.0 28 03/03/18 07:57 Nasal Cannula 2.0 28 03/03/18 04:00 97.5 71 20 127/53 94 Nasal Cannula 2.0 97.5 03/03/18 04:00 68 03/03/18 00:00 66 03/03/18 00:00 98.5 75 20 116/53 99 Nasal Cannula 2.0 98.5 03/02/18 20:01 95 Nasal Cannula 2.0 28 03/02/18 20:01 Nasal Cannula 2.0 28 03/02/18 20:01 71 18 Nasal Cannula 2.0 28 03/02/18 20:00 98.0 70 20 115/47 99 Nasal Cannula 2.0 98.0 03/02/18 20:00 70 03/02/18 16:00 70 03/02/18 16:00 97.7 72 20 105/52 96 Nasal Cannula 2.0 97.7 Intake and Output 03/02/18 03/03/18 19:00 07:00 Intake Total 910 ml 260 ml Balance 910 ml 260 ml Intake Free Water 200 ml 60 ml IV Total 110 ml Tube Feeding 600 ml 200 ml # Voids 2 4 # Bowel Movements 1 2 Laboratory Tests Test 03/03/18 06:00 White Blood Count 8.5 K/UL (4.8-10.8) Red Blood Count 3.62 M/UL (4.20-5.40) L Hemoglobin 11.2 G/DL (12.0-16.0) L Hematocrit 32.9 % (37.0-47.0) L Mean Corpuscular Volume 91 FL (80-99) Mean Corpuscular Hemoglobin 31.0 PG (27.0-31.0) Mean Corpuscular Hemoglobin Concent 34.2 G/DL (32.0-36.0) Red Cell Distribution Width 13.3 % (11.6-14.8) Platelet Count 267 K/UL (150-450) Mean Platelet Volume 7.1 FL (6.5-10.1) Neutrophils (%) (Auto) 67.9 % (45.0-75.0) Lymphocytes (%) (Auto) 20.9 % (20.0-45.0) Monocytes (%) (Auto) 9.0 % (1.0-10.0) Eosinophils (%) (Auto) 1.3 % (0.0-3.0) Basophils (%) (Auto) 0.8 % (0.0-2.0) Prothrombin Time 21.8 SEC (9.30-11.50) H Prothromb Time International Ratio 2.1 (0.9-1.1) H Sodium Level 139 MMOL/L (136-145) Potassium Level 3.7 MMOL/L (3.5-5.1) Chloride Level 98 MMOL/L (98-107) Carbon Dioxide Level 37 MMOL/L (21-32) H Anion Gap 4 mmol/L (5-15) L Blood Urea Nitrogen 38 mg/dL (7-18) H Creatinine 1.2 MG/DL (0.55-1.30) Estimat Glomerular Filtration Rate mL/min (>60) Glucose Level 110 MG/DL (74-106) H Calcium Level 9.2 MG/DL (8.5-10.1) Objective HEAD AND NECK: No JVD. LUNGS: Coarse rhonchi. CARDIOVASCULAR: Regular S1 and S2 . 2/6 murmur. ABDOMEN: G-tube EXTREMITIES: 1+ pitting edema. Arsaln Fowler MD Mar 03, 2018 13:42
[2018-03-03 16:00] VITALS: BP 122/62
[2018-03-03] MEDS ORDERED: Warfarin Sodium 3mg ORAL SCH (17:00)
[2018-03-03] MEDS: Vancomycin 500 MG in D5W 110 ML IVPB SCH (17:05)
--- NOTE | 2018-03-03 18:04 | Pulmonology Progress Note ---
Assessment/Plan Problems: (1) CHF (congestive heart failure) (2) Influenza B (3) Bronchospasm (4) Pulmonary edema (5) Fever (6) UTI (urinary tract infection) (7) Staphylococcus aureus bacteremia Assessment & Plan: Assumed to be 2/2 PVE, unable to do BLAIRE, awaiting PICC (8) Gastrostomy tube in place (9) CVA (cerebral vascular accident) Assessment/Plan -Optimize pulmonary hygiene/mobilize as tolerated -Titrate down FiO2 to keep SaO2 > 90% -RTC and PRN HHN's -IV Vanco per ID, will hold off BLAIRE given frailty and treat as PVE -Monitor volumes and renal function -Diuresis as able -F/U cards recs -TF's as tolerated -Continue A/C -DNAR/DNI, BiPAP ok Subjective Allergies: Coded Allergies: No Known Allergies (Unverified , 02/20/18) Subjective Events reviewed, AFVSS, stable O2 needs Awaiting PICC No cough, no SOB, no F/C Objective Last 24 Hour Vital Signs Date Time Temp Pulse Resp B/P (MAP) Pulse Ox O2 Delivery O2 Flow Rate FiO2 03/03/18 16:00 64 03/03/18 16:00 97.7 66 20 122/62 100 Nasal Cannula 2.0 97.7 03/03/18 12:00 97.3 70 19 112/60 100 Nasal Cannula 2.0 97.3 03/03/18 12:00 64 03/03/18 08:00 70 03/03/18 08:00 97.5 69 19 127/50 97 Nasal Cannula 2.0 97.5 03/03/18 07:57 78 18 Nasal Cannula 2.0 28 03/03/18 07:57 94 Nasal Cannula 2.0 28 03/03/18 07:57 Nasal Cannula 2.0 28 03/03/18 04:00 97.5 71 20 127/53 94 Nasal Cannula 2.0 97.5 03/03/18 04:00 68 03/03/18 00:00 66 03/03/18 00:00 98.5 75 20 116/53 99 Nasal Cannula 2.0 98.5 03/02/18 20:01 95 Nasal Cannula 2.0 28 03/02/18 20:01 Nasal Cannula 2.0 28 03/02/18 20:01 71 18 Nasal Cannula 2.0 28 03/02/18 20:00 98.0 70 20 115/47 99 Nasal Cannula 2.0 98.0 03/02/18 20:00 70 Intake and Output 03/02/18 03/03/18 19:00 07:00 Intake Total 910 ml 260 ml Balance 910 ml 260 ml Intake Free Water 200 ml 60 ml IV Total 110 ml Tube Feeding 600 ml 200 ml # Voids 2 4 # Bowel Movements 1 2 General Appearance: no acute distress, cachetic HEENT: normocephalic, atraumatic, anicteric, mucous membranes moist Respiratory/Chest: chest wall non-tender, lungs clear, normal breath sounds, no respiratory distress, no accessory muscle use Cardiovascular: normal peripheral pulses, normal rate, regular rhythm Abdomen: normal bowel sounds, soft, non tender, no organomegaly, non distended Extremities: no cyanosis, no clubbing, no edema Laboratory Tests 03/03/18 06:00: White Blood Count 8.5, Red Blood Count 3.62L, Hemoglobin 11.2L, Hematocrit 32.9L , Mean Corpuscular Volume 91, Mean Corpuscular Hemoglobin 31.0, Mean Corpuscular Hemoglobin Concent 34.2, Red Cell Distribution Width 13.3, Platelet Count 267, Mean Platelet Volume 7.1, Neutrophils (%) (Auto) 67.9, Lymphocytes (% ) (Auto) 20.9, Monocytes (%) (Auto) 9.0, Eosinophils (%) (Auto) 1.3, Basophils ( %) (Auto) 0.8, Prothrombin Time 21.8H, Prothromb Time International Ratio 2.1H, Sodium Level 139, Potassium Level 3.7, Chloride Level 98, Carbon Dioxide Level 37H, Anion Gap 4L, Blood Urea Nitrogen 38H, Creatinine 1.2, Estimat Glomerular Filtration Rate , Glucose Level 110H, Calcium Level 9.2 03/03/18 17:20: Vancomycin Level Trough 28.5H Current Medications Medications (Trade) Dose Ordered Sig/Lanie Route PRN Reason Start Time Stop Time Status Last Admin Dose Admin Albuterol/ Ipratropium (Albuterol/ Ipratropium) 3 ml Q4H PRN HHN Shortness of Breath 03/02/18 14:15 03/07/18 14:14 Artificial Tears (Akwa-Tears) 1 drop Q3H PRN BOTH EYES Dry Eyes 02/22/18 21:00 03/22/18 20:59 Atorvastatin Calcium (Lipitor) 20 mg BEDTIME GT 02/22/18 21:00 03/23/18 20:59 03/02/18 21:01 Bisacodyl (Dulcolax) 10 mg DAILYPRN PRN RECTAL Constipation 02/22/18 21:00 03/24/18 20:59 Chlorhexidine Gluconate (Luz-Hex 2%) 1 applic DAILY@2000 TOPIC 03/02/18 20:00 04/01/18 19:59 03/02/18 21:01 Docusate Sodium (Colace) 100 mg DAILY GT 03/02/18 10:45 04/01/18 10:44 03/03/18 08:53 Enoxaparin Sodium (Lovenox) 60 mg BEDTIME SUBQ 03/01/18 23:00 03/31/18 22:59 03/02/18 21:03 Furosemide (Lasix) 20 mg Q12HR IV 02/22/18 21:00 03/22/18 20:59 03/03/18 08:53 Guaifenesin (Robitussin) 300 mg Q4H PRN GT For Cough 02/22/18 21:00 03/22/18 20:59 Heparin Sodium/ Sodium Chloride (Heparin 2000 units/Ns 1000ml premix) 2,000 unit ONCE PRN INJ PICC line placement 03/02/18 13:00 03/03/18 23:59 Lactobacillus Acidophilus (Culturelle) 1 tab BID GT 02/23/18 09:00 03/23/18 08:59 03/03/18 17:04 Levetiracetam (Keppra) 250 mg QHS GT 02/22/18 21:00 03/23/18 20:59 03/02/18 21:01 Levetiracetam (Keppra) 500 mg DAILY GT 02/23/18 09:00 03/23/18 08:59 03/03/18 08:53 Lidocaine HCl (Xylocaine 1% 30ml) 30 ml ONCE PRN INJ PICC line placement 03/02/18 13:00 03/03/18 23:59 Multivitamins (Multivitamins W/ Minerals 15ml Liquid) 15 ml DAILY GT 02/23/18 09:00 03/23/18 08:59 03/03/18 08:53 Pantoprazole (Protonix) 40 mg DAILY IVP 02/23/18 09:00 03/25/18 08:59 03/03/18 08:53 Sennosides (Senokot) 2 tab QHS GT 02/22/18 21:00 03/23/18 21:16 03/01/18 20:29 Sertraline HCl (Zoloft) 25 mg Q48H GT 02/25/18 09:00 03/27/18 08:59 03/03/18 08:52 Vancomycin HCl (Vanco rx to dose) 1 ea DAILY PRN MISC Per rx protocol 02/24/18 11:00 03/26/18 10:59 Vancomycin HCl 500 mg/Dextrose 110 ml @ 110 mls/hr Q24H IVPB 03/01/18 18:00 03/06/18 17:59 03/03/18 17:05 Warfarin Sodium (Coumadin per pharmacy) 1 ea DAILY PRN MISC Per rx protocol 02/23/18 09:00 03/23/18 19:14 Lewis Galvez MD Mar 03, 2018 18:04
[2018-03-03 20:00] VITALS: BP 108/41
[2018-03-03] MEDS: Dyna-Hex 2% Top Sol 2oz TOPIC SCH (20:00)
[2018-03-03] MEDS: Atorvastatin 20mg tab GT SCH (20:42)
[2018-03-03] MEDS: Sennosides 8.6mg GT SCH (20:42)
--- NOTE | 2018-03-03 23:28 | General Progress Note ---
Assessment/Plan Assessment/Plan chf sepsis staph influenza b fevers afib artificial valve diuresis on nc pulmonary eval appreciated pulmonary hygiene on tamiflu on abx per ID duration noted dw dr silverio states he has ordered BLAIRE to rulout prosthetic valve endocarditis pending gi eval appreciated dc when cleared by cardiology Subjective Allergies: Coded Allergies: No Known Allergies (Unverified , 02/20/18) Subjective awake alert more comortable no cp Objective Last 24 Hour Vital Signs Date Time Temp Pulse Resp B/P (MAP) Pulse Ox O2 Delivery O2 Flow Rate FiO2 03/03/18 20:00 62 03/03/18 20:00 Nasal Cannula 2.0 28 03/03/18 20:00 97.9 63 20 108/41 99 Nasal Cannula 2.0 97.9 03/03/18 19:30 95 Nasal Cannula 2.0 28 03/03/18 19:30 66 18 Nasal Cannula 2.0 28 03/03/18 16:00 64 03/03/18 16:00 97.7 66 20 122/62 100 Nasal Cannula 2.0 97.7 03/03/18 12:00 97.3 70 19 112/60 100 Nasal Cannula 2.0 97.3 03/03/18 12:00 64 03/03/18 08:00 70 03/03/18 08:00 97.5 69 19 127/50 97 Nasal Cannula 2.0 97.5 03/03/18 07:57 78 18 Nasal Cannula 2.0 28 03/03/18 07:57 94 Nasal Cannula 2.0 28 03/03/18 07:57 Nasal Cannula 2.0 28 03/03/18 04:00 97.5 71 20 127/53 94 Nasal Cannula 2.0 97.5 03/03/18 04:00 68 03/03/18 00:00 66 03/03/18 00:00 98.5 75 20 116/53 99 Nasal Cannula 2.0 98.5 Intake and Output 03/02/18 03/03/18 19:00 07:00 Intake Total 910 ml 260 ml Balance 910 ml 260 ml Intake Free Water 200 ml 60 ml IV Total 110 ml Tube Feeding 600 ml 200 ml # Voids 2 4 # Bowel Movements 1 2 Laboratory Tests 03/03/18 06:00: White Blood Count 8.5, Red Blood Count 3.62L, Hemoglobin 11.2L, Hematocrit 32.9L , Mean Corpuscular Volume 91, Mean Corpuscular Hemoglobin 31.0, Mean Corpuscular Hemoglobin Concent 34.2, Red Cell Distribution Width 13.3, Platelet Count 267, Mean Platelet Volume 7.1, Neutrophils (%) (Auto) 67.9, Lymphocytes (% ) (Auto) 20.9, Monocytes (%) (Auto) 9.0, Eosinophils (%) (Auto) 1.3, Basophils ( %) (Auto) 0.8, Prothrombin Time 21.8H, Prothromb Time International Ratio 2.1H, Sodium Level 139, Potassium Level 3.7, Chloride Level 98, Carbon Dioxide Level 37H, Anion Gap 4L, Blood Urea Nitrogen 38H, Creatinine 1.2, Estimat Glomerular Filtration Rate , Glucose Level 110H, Calcium Level 9.2 03/03/18 17:20: Vancomycin Level Trough 28.5H Height (Feet): 5 Height (Inches): 4.00 Weight (Pounds): 138 General Appearance: WD/WN, no apparent distress Cardiovascular: irregularly irregular Respiratory/Chest: lungs clear Abdomen: soft Objective pos gtube slight swellin on the left iside of it no leakage noted contracteded le 1 plus edema hemiparesis Darrion Obrien MD Mar 03, 2018 23:28
[2018-03-04] VITALS: BP 122/52
[2018-03-04 04:00] VITALS: BP 128/49
[2018-03-04 08:00] VITALS: BP 129/63
--- NOTE | 2018-03-04 08:05 | General Progress Note ---
Assessment/Plan Problem List: (1) Anemia ICD Codes: D64.9 - Anemia, unspecified SNOMED: 871642814 (2) CHF (congestive heart failure) ICD Codes: I50.9 - Heart failure, unspecified SNOMED: 24882299 (3) Gastrojejunostomy tube dislodgement ICD Codes: Z43.4 - Encounter for attention to other artificial openings of digestive tract SNOMED: 439891475 (4) Atrial fibrillation ICD Codes: I48.91 - Unspecified atrial fibrillation SNOMED: 55103473 Assessment/Plan KUB d/w with radiologist >> GT is in the correct position with no backflow or leaks OB stool negative GTFs per RD GT site care daily/prn iron deficiency >> venofer monitor H&H, prn transfusions electrolyte replacement bowel regime ppi fu labs okay for DC per GI standpoint Subjective ROS Limited/Unobtainable: No Allergies: Coded Allergies: No Known Allergies (Unverified , 02/20/18) Objective Last 24 Hour Vital Signs Date Time Temp Pulse Resp B/P (MAP) Pulse Ox O2 Delivery O2 Flow Rate FiO2 03/04/18 04:00 69 03/04/18 04:00 97.8 69 20 128/49 94 Nasal Cannula 2.0 97.8 03/04/18 00:00 96.9 66 18 122/52 98 Nasal Cannula 2.0 96.9 03/04/18 00:00 78 03/03/18 20:00 62 03/03/18 20:00 Nasal Cannula 2.0 28 03/03/18 20:00 97.9 63 20 108/41 99 Nasal Cannula 2.0 97.9 03/03/18 19:30 95 Nasal Cannula 2.0 28 03/03/18 19:30 66 18 Nasal Cannula 2.0 28 03/03/18 16:00 64 03/03/18 16:00 97.7 66 20 122/62 100 Nasal Cannula 2.0 97.7 03/03/18 12:00 97.3 70 19 112/60 100 Nasal Cannula 2.0 97.3 03/03/18 12:00 64 Intake and Output 03/03/18 03/04/18 19:00 07:00 Intake Total 110 ml Balance 110 ml IV Total 110 ml # Voids 2 3 Laboratory Tests 03/03/18 17:20: Vancomycin Level Trough 28.5H 03/04/18 06:24: White Blood Count [Pending], Red Blood Count [Pending], Hemoglobin [Pending], Hematocrit [Pending], Mean Corpuscular Volume [Pending], Mean Corpuscular Hemoglobin [Pending], Mean Corpuscular Hemoglobin Concent [Pending], Red Cell Distribution Width [Pending], Platelet Count [Pending], Mean Platelet Volume [ Pending], Neutrophils (%) (Auto) [Pending], Lymphocytes (%) (Auto) [Pending], Monocytes (%) (Auto) [Pending], Eosinophils (%) (Auto) [Pending], Basophils (%) (Auto) [Pending], Prothrombin Time [Pending], Prothromb Time International Ratio [Pending], Sodium Level [Pending], Potassium Level [Pending], Chloride Level [Pending], Carbon Dioxide Level [Pending], Blood Urea Nitrogen [Pending], Creatinine [Pending], Estimat Glomerular Filtration Rate [Pending], Glucose Level [Pending], Calcium Level [Pending], Total Bilirubin [Pending], Aspartate Amino Transf (AST/SGOT) [Pending], Alanine Aminotransferase (ALT/SGPT) [Pending] , Alkaline Phosphatase [Pending], Total Protein [Pending], Albumin [Pending], Globulin [Pending] Height (Feet): 5 Height (Inches): 4.00 Weight (Pounds): 138 General Appearance: no apparent distress EENT: normal ENT inspection Neck: supple Cardiovascular: normal rate Respiratory/Chest: decreased breath sounds Abdomen: normal bowel sounds, non tender, soft Extremities: non-tender Willian Quigley MD Mar 04, 2018 08:05
[2018-03-04 08:07] LABS: BASOPHILS % (AUTO) 0.6 % (0.0-2.0); EOSINOPHILS % (AUTO) 1.1 % (0.0-3.0); HEMATOCRIT 34.5 % (37.0-47.0); HEMOGLOBIN 11.4 G/DL (12.0-16.0); LYMPHOCYTES % (AUTO) 15.6 % (20.0-45.0); MEAN CORPUSCULAR VOLUME 91 FL (80-99); MONOCYTES % (AUTO) 8.3 % (1.0-10.0); NEUTROPHILS % (AUTO) 74.4 % (45.0-75.0); PLATELET COUNT 254 K/UL (150-450); RED BLOOD COUNT 3.78 M/UL (4.20-5.40); RED CELL DISTRIBUTION WIDTH 13.3 % (11.6-14.8)
[2018-03-04 08:29] LABS: INR 2.6 (0.9-1.1)
[2018-03-04 08:46] LABS: ALANINE AMINOTRANSFERASE 29 U/L (12-78); ALBUMIN/GLOBULIN RATIO 0.7 (1.0-2.7); ALKALINE PHOSPHATASE 116 U/L (46-116); ANION GAP 5 mmol/L (5-15); ASPARTATE AMINO TRANSFERASE 28 U/L (15-37); BILIRUBIN,TOTAL 0.5 MG/DL (0.2-1.0); BLOOD UREA NITROGEN 39 mg/dL (7-18); CALCIUM 9.1 MG/DL (8.5-10.1); CARBON DIOXIDE 36 MMOL/L (21-32); CHLORIDE 97 MMOL/L (98-107); CREATININE 1.2 MG/DL (0.55-1.30); POTASSIUM 3.7 MMOL/L (3.5-5.1); SODIUM 138 MMOL/L (136-145)
[2018-03-04] MEDS: Docusate 100mg/10ml Liq GT SCH (08:58)
[2018-03-04] MEDS: levETIRAcetam 500mg/5ml Liquid GT SCH ×2 (08:58→21:55)
[2018-03-04] MEDS: Multivitamins W/Minerals 15 ML UDC GT SCH (08:58)
[2018-03-04] MEDS: Pantoprazole Inj IVP SCH (08:58)
[2018-03-04] MEDS: Lactobacillus-GG tablet GT SCH ×2 (08:59→18:11)
[2018-03-04 12:00] VITALS: BP 106/44
[2018-03-04 16:00] VITALS: BP 118/42
--- NOTE | 2018-03-04 16:34 | Cardiology Progress Note ---
Assessment/Plan Status: stable Assessment/Plan BLAIRE to evaluate prosthetic valve endocarditis Subjective Cardiovascular: Reports: no symptoms Respiratory: Reports: no symptoms Gastrointestinal/Abdominal: Reports: no symptoms Genitourinary: Reports: no symptoms Subjective no acute events, awaiting BLAIRE Objective Last 24 Hour Vital Signs Date Time Temp Pulse Resp B/P (MAP) Pulse Ox O2 Delivery O2 Flow Rate FiO2 03/04/18 15:41 61 03/04/18 12:00 69 03/04/18 12:00 97.2 60 20 106/44 94 Nasal Cannula 2.0 97.2 03/04/18 08:12 Nasal Cannula 2.0 28 03/04/18 08:10 99 Nasal Cannula 2.0 28 03/04/18 08:09 62 20 Nasal Cannula 2.0 28 03/04/18 08:00 98.1 66 20 129/63 99 Nasal Cannula 2.0 98.1 03/04/18 08:00 64 03/04/18 04:00 69 03/04/18 04:00 97.8 69 20 128/49 94 Nasal Cannula 2.0 97.8 03/04/18 00:00 96.9 66 18 122/52 98 Nasal Cannula 2.0 96.9 03/04/18 00:00 78 03/03/18 20:00 62 03/03/18 20:00 Nasal Cannula 2.0 28 03/03/18 20:00 97.9 63 20 108/41 99 Nasal Cannula 2.0 97.9 03/03/18 19:30 95 Nasal Cannula 2.0 28 03/03/18 19:30 66 18 Nasal Cannula 2.0 28 General Appearance: WD/WN EENT: PERRL/EOMI Neck: non-tender Rhythm: NSR Cardiovascular: normal peripheral pulses Respiratory/Chest: chest wall non-tender Abdomen: normal bowel sounds Extremities: normal range of motion Neurologic: property man II-XII grossly normal Intake and Output 03/03/18 03/04/18 19:00 07:00 Intake Total 110 ml Balance 110 ml IV Total 110 ml # Voids 2 3 Laboratory Tests Test 03/03/18 17:20 03/04/18 06:24 Vancomycin Level Trough 28.5 ug/mL (5.0-12.0) H White Blood Count 8.0 K/UL (4.8-10.8) Red Blood Count 3.78 M/UL (4.20-5.40) L Hemoglobin 11.4 G/DL (12.0-16.0) L Hematocrit 34.5 % (37.0-47.0) L Mean Corpuscular Volume 91 FL (80-99) Mean Corpuscular Hemoglobin 30.1 PG (27.0-31.0) Mean Corpuscular Hemoglobin Concent 33.0 G/DL (32.0-36.0) Red Cell Distribution Width 13.3 % (11.6-14.8) Platelet Count 254 K/UL (150-450) Mean Platelet Volume 7.7 FL (6.5-10.1) Neutrophils (%) (Auto) 74.4 % (45.0-75.0) Lymphocytes (%) (Auto) 15.6 % (20.0-45.0) L Monocytes (%) (Auto) 8.3 % (1.0-10.0) Eosinophils (%) (Auto) 1.1 % (0.0-3.0) Basophils (%) (Auto) 0.6 % (0.0-2.0) Prothrombin Time 27.0 SEC (9.30-11.50) H Prothromb Time International Ratio 2.6 (0.9-1.1) H Sodium Level 138 MMOL/L (136-145) Potassium Level 3.7 MMOL/L (3.5-5.1) Chloride Level 97 MMOL/L (98-107) L Carbon Dioxide Level 36 MMOL/L (21-32) H Anion Gap 5 mmol/L (5-15) Blood Urea Nitrogen 39 mg/dL (7-18) H Creatinine 1.2 MG/DL (0.55-1.30) Estimat Glomerular Filtration Rate mL/min (>60) Glucose Level 123 MG/DL (74-106) H Calcium Level 9.1 MG/DL (8.5-10.1) Total Bilirubin 0.5 MG/DL (0.2-1.0) Aspartate Amino Transf (AST/SGOT) 28 U/L (15-37) Alanine Aminotransferase (ALT/SGPT) 29 U/L (12-78) Alkaline Phosphatase 116 U/L (46-116) Total Protein 7.4 G/DL (6.4-8.2) Albumin 3.0 G/DL (3.4-5.0) L Globulin 4.4 g/dL Albumin/Globulin Ratio 0.7 (1.0-2.7) L Singh Chakraborty M.D. Mar 04, 2018 16:34
[2018-03-04] MEDS ORDERED: Warfarin Sodium 4mg PO ONE (17:00)
[2018-03-04 20:00] VITALS: BP 134/70
[2018-03-04] MEDS: Dyna-Hex 2% Top Sol 2oz TOPIC SCH (20:00)
[2018-03-04] MEDS: Sennosides 8.6mg GT SCH (21:00)
[2018-03-04] MEDS: Vancomycin 750mg/NS 250ml IVPB SCH (21:54)
[2018-03-04] MEDS: Atorvastatin 20mg tab GT SCH (21:54)
--- NOTE | 2018-03-04 22:51 | General Progress Note ---
Assessment/Plan Assessment/Plan chf sepsis staph influenza b fevers afib artificial valve diuresis on nc pulmonary eval appreciated pulmonary hygiene on abx per ID duration noted per discussion with cardiology family refused BLAIRE dw cardiololgy pulmonary ID may dc to snf after piccline placement RN aware Subjective Allergies: Coded Allergies: No Known Allergies (Unverified , 02/20/18) Subjective awake alert more comortable no cp Objective Last 24 Hour Vital Signs Date Time Temp Pulse Resp B/P (MAP) Pulse Ox O2 Delivery O2 Flow Rate FiO2 03/04/18 20:00 74 03/04/18 19:30 96 Nasal Cannula 2.0 28 03/04/18 19:30 Nasal Cannula 2.0 28 03/04/18 19:30 64 18 Nasal Cannula 2.0 28 03/04/18 16:00 97.6 66 20 118/42 99 Nasal Cannula 2.0 97.6 03/04/18 15:41 61 03/04/18 12:00 69 03/04/18 12:00 97.2 60 20 106/44 94 Nasal Cannula 2.0 97.2 03/04/18 08:12 Nasal Cannula 2.0 28 03/04/18 08:10 99 Nasal Cannula 2.0 28 03/04/18 08:09 62 20 Nasal Cannula 2.0 28 03/04/18 08:00 98.1 66 20 129/63 99 Nasal Cannula 2.0 98.1 03/04/18 08:00 64 03/04/18 04:00 69 03/04/18 04:00 97.8 69 20 128/49 94 Nasal Cannula 2.0 97.8 03/04/18 00:00 96.9 66 18 122/52 98 Nasal Cannula 2.0 96.9 03/04/18 00:00 78 Intake and Output 03/03/18 03/04/18 19:00 07:00 Intake Total 110 ml Balance 110 ml IV Total 110 ml # Voids 2 3 Laboratory Tests 03/04/18 06:24: White Blood Count 8.0, Red Blood Count 3.78L, Hemoglobin 11.4L, Hematocrit 34.5L , Mean Corpuscular Volume 91, Mean Corpuscular Hemoglobin 30.1, Mean Corpuscular Hemoglobin Concent 33.0, Red Cell Distribution Width 13.3, Platelet Count 254, Mean Platelet Volume 7.7, Neutrophils (%) (Auto) 74.4, Lymphocytes (% ) (Auto) 15.6L, Monocytes (%) (Auto) 8.3, Eosinophils (%) (Auto) 1.1, Basophils (%) (Auto) 0.6, Prothrombin Time 27.0H, Prothromb Time International Ratio 2.6H , Sodium Level 138, Potassium Level 3.7, Chloride Level 97L, Carbon Dioxide Level 36H, Anion Gap 5, Blood Urea Nitrogen 39H, Creatinine 1.2, Estimat Glomerular Filtration Rate , Glucose Level 123H, Calcium Level 9.1, Total Bilirubin 0.5, Aspartate Amino Transf (AST/SGOT) 28, Alanine Aminotransferase ( ALT/SGPT) 29, Alkaline Phosphatase 116, Total Protein 7.4, Albumin 3.0L, Globulin 4.4, Albumin/Globulin Ratio 0.7L 03/04/18 17:00: Vancomycin Level Trough 21.6H Height (Feet): 5 Height (Inches): 4.00 Weight (Pounds): 138 General Appearance: WD/WN Neck: supple Cardiovascular: irregularly irregular Respiratory/Chest: lungs clear Abdomen: soft Objective pos gtube s contracted hemiparesis Darrion Obrien MD Mar 04, 2018 22:51
[2018-03-05] VITALS (8 sets, daily range): BP systolic 95–142; BP diastolic 45–58
[2018-03-05] MEDS: Multivitamins W/Minerals 15 ML UDC GT SCH (08:17)
[2018-03-05] MEDS: Pantoprazole Inj IVP SCH (08:17)
[2018-03-05] MEDS: Sertraline 50mg tab GT SCH (08:17)
[2018-03-05] MEDS: levETIRAcetam 500mg/5ml Liquid GT SCH ×2 (08:17→20:34)
[2018-03-05] MEDS: Docusate 100mg/10ml Liq GT SCH (08:18)
[2018-03-05] MEDS: Lactobacillus-GG tablet GT SCH ×2 (08:18→17:18)
[2018-03-05 08:46] LABS: INR 2.9 (0.9-1.1)
--- NOTE | 2018-03-05 10:36 | General Progress Note ---
Assessment/Plan Problem List: (1) Anemia ICD Codes: D64.9 - Anemia, unspecified SNOMED: 713465776 (2) CHF (congestive heart failure) ICD Codes: I50.9 - Heart failure, unspecified SNOMED: 46964403 (3) Gastrojejunostomy tube dislodgement ICD Codes: Z43.4 - Encounter for attention to other artificial openings of digestive tract SNOMED: 324076901 (4) Atrial fibrillation ICD Codes: I48.91 - Unspecified atrial fibrillation SNOMED: 75082617 Assessment/Plan KUB d/w with radiologist >> GT is in the correct position with no backflow or leaks OB stool negative GTFs per RD GT site care daily/prn iron deficiency >> venofer monitor H&H, prn transfusions electrolyte replacement bowel regime ppi fu labs okay for DC per GI standpoint Subjective ROS Limited/Unobtainable: No Allergies: Coded Allergies: No Known Allergies (Unverified , 02/20/18) Objective Last 24 Hour Vital Signs Date Time Temp Pulse Resp B/P (MAP) Pulse Ox O2 Delivery O2 Flow Rate FiO2 03/05/18 08:47 Nasal Cannula 2.0 28 03/05/18 08:45 76 20 Nasal Cannula 2.0 28 03/05/18 08:00 97.7 68 20 107/50 100 Nasal Cannula 2.0 97.7 03/05/18 07:46 98 Nasal Cannula 2.0 28 03/05/18 04:00 71 03/05/18 04:00 98.2 68 20 111/45 95 Nasal Cannula 2.0 98.2 03/05/18 00:00 62 03/05/18 00:00 97.5 67 20 105/57 98 Nasal Cannula 2.0 97.5 03/04/18 20:00 74 03/04/18 20:00 98.0 61 16 134/70 99 Nasal Cannula 2.0 98.0 03/04/18 19:30 96 Nasal Cannula 2.0 28 03/04/18 19:30 Nasal Cannula 2.0 28 03/04/18 19:30 64 18 Nasal Cannula 2.0 28 03/04/18 16:00 97.6 66 20 118/42 99 Nasal Cannula 2.0 97.6 03/04/18 15:41 61 03/04/18 12:00 69 03/04/18 12:00 97.2 60 20 106/44 94 Nasal Cannula 2.0 97.2 Intake and Output 03/04/18 03/05/18 19:00 07:00 # Voids 1 2 Laboratory Tests 03/04/18 17:00: Vancomycin Level Trough 21.6H 03/05/18 08:05: Prothrombin Time 30.7H, Prothromb Time International Ratio 2.9H Height (Feet): 5 Height (Inches): 4.00 Weight (Pounds): 143 General Appearance: no apparent distress EENT: normal ENT inspection Neck: supple Cardiovascular: normal rate Respiratory/Chest: decreased breath sounds Abdomen: normal bowel sounds, non tender, soft Extremities: non-tender Willian Quigley MD Mar 05, 2018 10:36
[2018-03-05] MEDS ORDERED: Sterile Water Irrig 1000ml IRRIG ONE (11:09)
--- NOTE | 2018-03-05 11:57 | Infectious Diseases Prog Note ---
Assessment/Plan Assessment/Plan A 1. pneumonia treated 2. influenza B URI treated 3. staph coagulase negative bacteremia, 4. atrial fibrillation 5. hypertension 6- prosthetic mitral valve, ? infective endocarditis P 1. continue vancomycin iv, X 29 days 2. Waiting for PICC line placement Subjective ROS Limited/Unobtainable: Yes Allergies: Coded Allergies: No Known Allergies (Unverified , 02/20/18) Objective Vital Signs Last 24 Hour Vital Signs Date Time Temp Pulse Resp B/P (MAP) Pulse Ox O2 Delivery O2 Flow Rate FiO2 03/05/18 08:47 Nasal Cannula 2.0 28 03/05/18 08:45 76 20 Nasal Cannula 2.0 28 03/05/18 08:00 97.7 68 20 107/50 100 Nasal Cannula 2.0 97.7 03/05/18 07:46 98 Nasal Cannula 2.0 28 03/05/18 04:00 71 03/05/18 04:00 98.2 68 20 111/45 95 Nasal Cannula 2.0 98.2 03/05/18 00:00 62 03/05/18 00:00 97.5 67 20 105/57 98 Nasal Cannula 2.0 97.5 03/04/18 20:00 74 03/04/18 20:00 98.0 61 16 134/70 99 Nasal Cannula 2.0 98.0 03/04/18 19:30 96 Nasal Cannula 2.0 28 03/04/18 19:30 Nasal Cannula 2.0 28 03/04/18 19:30 64 18 Nasal Cannula 2.0 28 03/04/18 16:00 97.6 66 20 118/42 99 Nasal Cannula 2.0 97.6 03/04/18 15:41 61 03/04/18 12:00 69 03/04/18 12:00 97.2 60 20 106/44 94 Nasal Cannula 2.0 97.2 Height (Feet): 5 Height (Inches): 4.00 Weight (Pounds): 143 General Appearance: no acute distress Respiratory/Chest: lungs clear Cardiovascular: normal rate Abdomen: soft, non tender Extremities: no edema Neurologic/Psychiatric: unresponsiveness Laboratory Tests Test 03/04/18 17:00 03/05/18 08:05 Vancomycin Level Trough 21.6 ug/mL (5.0-12.0) H Prothrombin Time 30.7 SEC (9.30-11.50) H Prothromb Time International Ratio 2.9 (0.9-1.1) H Current Medications Medications (Trade) Dose Ordered Sig/Lanie Route PRN Reason Start Time Stop Time Status Last Admin Dose Admin Albuterol/ Ipratropium (Albuterol/ Ipratropium) 3 ml Q4H PRN HHN Shortness of Breath 03/02/18 14:15 03/07/18 14:14 Artificial Tears (Akwa-Tears) 1 drop Q3H PRN BOTH EYES Dry Eyes 02/22/18 21:00 03/22/18 20:59 Atorvastatin Calcium (Lipitor) 20 mg BEDTIME GT 02/22/18 21:00 03/23/18 20:59 03/04/18 21:54 Bisacodyl (Dulcolax) 10 mg DAILYPRN PRN RECTAL Constipation 02/22/18 21:00 03/24/18 20:59 Chlorhexidine Gluconate (Luz-Hex 2%) 1 applic DAILY@2000 TOPIC 03/02/18 20:00 04/01/18 19:59 03/02/18 21:01 Docusate Sodium (Colace) 100 mg DAILY GT 03/02/18 10:45 04/01/18 10:44 03/05/18 08:18 Furosemide (Lasix) 20 mg Q12HR IV 02/22/18 21:00 03/22/18 20:59 03/05/18 08:18 Guaifenesin (Robitussin) 300 mg Q4H PRN GT For Cough 02/22/18 21:00 03/22/18 20:59 Lactobacillus Acidophilus (Culturelle) 1 tab BID GT 02/23/18 09:00 03/23/18 08:59 03/05/18 08:18 Levetiracetam (Keppra) 250 mg QHS GT 02/22/18 21:00 03/23/18 20:59 03/04/18 21:55 Levetiracetam (Keppra) 500 mg DAILY GT 02/23/18 09:00 03/23/18 08:59 03/05/18 08:17 Multivitamins (Multivitamins W/ Minerals 15ml Liquid) 15 ml DAILY GT 02/23/18 09:00 6/21/18 08:59 03/05/18 08:17 Pantoprazole (Protonix) 40 mg DAILY IVP 02/23/18 09:00 03/25/18 08:59 03/05/18 08:17 Sennosides (Senokot) 2 tab QHS GT 02/22/18 21:00 03/23/18 21:16 03/03/18 20:42 Sertraline HCl (Zoloft) 25 mg Q48H GT 02/25/18 09:00 03/27/18 08:59 03/05/18 08:17 Vancomycin HCl (Vanco rx to dose) 1 ea DAILY PRN MISC Per rx protocol 02/24/18 11:00 03/26/18 10:59 Vancomycin/Sodium Chloride 250 ml @ 166.667 mls/hr Q36H IVPB 03/04/18 22:00 03/09/18 21:59 03/04/18 21:54 Warfarin Sodium (Coumadin per pharmacy) 1 ea DAILY PRN MISC Per rx protocol 02/23/18 09:00 03/23/18 19:14 Warfarin Sodium (Coumadin) 3 mg COUMADIN ONCE ORAL 03/05/18 17:00 03/05/18 17:01 Torey Ramirez MD Mar 05, 2018 11:57
--- NOTE | 2018-03-05 13:28 | Pulmonology Progress Note ---
Assessment/Plan Problems: (1) CHF (congestive heart failure) (2) Influenza B (3) Bronchospasm (4) Pulmonary edema (5) Fever (6) UTI (urinary tract infection) (7) Staphylococcus aureus bacteremia Assessment & Plan: Assumed to be 2/2 PVE, unable to do BLAIRE, awaiting PICC (8) Gastrostomy tube in place (9) CVA (cerebral vascular accident) Assessment/Plan -Optimize pulmonary hygiene/mobilize as tolerated -Titrate down FiO2 to keep SaO2 > 90% -RTC and PRN HHN's -IV Vanco per ID, will hold off BLAIRE given frailty and treat as PVE -Monitor volumes and renal function -Diuresis as able -F/U cards recs -TF's as tolerated -Continue A/C -DNAR/DNI, BiPAP ok Subjective Allergies: Coded Allergies: No Known Allergies (Unverified , 02/20/18) Subjective Events reviewed, AFVSS, stable O2 needs No cough, no SOB, no F/C Objective Last 24 Hour Vital Signs Date Time Temp Pulse Resp B/P (MAP) Pulse Ox O2 Delivery O2 Flow Rate FiO2 03/05/18 12:00 98.1 69 20 95/53 98 Nasal Cannula 2.0 98.1 03/05/18 12:00 98.1 72 20 101/57 100 Nasal Cannula 2.0 98.1 03/05/18 12:00 64 03/05/18 08:47 Nasal Cannula 2.0 28 03/05/18 08:45 76 20 Nasal Cannula 2.0 28 03/05/18 08:00 72 03/05/18 08:00 97.7 68 20 107/50 100 Nasal Cannula 2.0 97.7 03/05/18 07:46 98 Nasal Cannula 2.0 28 03/05/18 04:00 71 03/05/18 04:00 98.2 68 20 111/45 95 Nasal Cannula 2.0 98.2 03/05/18 00:00 62 03/05/18 00:00 97.5 67 20 105/57 98 Nasal Cannula 2.0 97.5 03/04/18 20:00 74 03/04/18 20:00 98.0 61 16 134/70 99 Nasal Cannula 2.0 98.0 03/04/18 19:30 96 Nasal Cannula 2.0 28 03/04/18 19:30 Nasal Cannula 2.0 28 03/04/18 19:30 64 18 Nasal Cannula 2.0 28 03/04/18 16:00 97.6 66 20 118/42 99 Nasal Cannula 2.0 97.6 03/04/18 15:41 61 Intake and Output 03/04/18 03/05/18 19:00 07:00 # Voids 1 2 General Appearance: no acute distress, cachetic HEENT: normocephalic, atraumatic, anicteric, mucous membranes moist Respiratory/Chest: chest wall non-tender, lungs clear, normal breath sounds, no respiratory distress Cardiovascular: normal peripheral pulses, normal rate, regular rhythm Abdomen: normal bowel sounds, soft, non tender, no organomegaly, non distended Extremities: no cyanosis, no clubbing, no edema Laboratory Tests 03/04/18 17:00: Vancomycin Level Trough 21.6H 03/05/18 08:05: Prothrombin Time 30.7H, Prothromb Time International Ratio 2.9H Current Medications Medications (Trade) Dose Ordered Sig/Lanie Route PRN Reason Start Time Stop Time Status Last Admin Dose Admin Albuterol/ Ipratropium (Albuterol/ Ipratropium) 3 ml Q4H PRN HHN Shortness of Breath 03/02/18 14:15 03/07/18 14:14 Artificial Tears (Akwa-Tears) 1 drop Q3H PRN BOTH EYES Dry Eyes 02/22/18 21:00 03/22/18 20:59 Atorvastatin Calcium (Lipitor) 20 mg BEDTIME GT 02/22/18 21:00 03/23/18 20:59 03/04/18 21:54 Bisacodyl (Dulcolax) 10 mg DAILYPRN PRN RECTAL Constipation 02/22/18 21:00 03/24/18 20:59 Chlorhexidine Gluconate (Luz-Hex 2%) 1 applic DAILY@2000 TOPIC 03/02/18 20:00 04/01/18 19:59 03/02/18 21:01 Docusate Sodium (Colace) 100 mg DAILY GT 03/02/18 10:45 04/01/18 10:44 03/05/18 08:18 Furosemide (Lasix) 20 mg Q12HR IV 02/22/18 21:00 03/22/18 20:59 03/05/18 08:18 Guaifenesin (Robitussin) 300 mg Q4H PRN GT For Cough 02/22/18 21:00 03/22/18 20:59 Lactobacillus Acidophilus (Culturelle) 1 tab BID GT 02/23/18 09:00 03/23/18 08:59 03/05/18 08:18 Levetiracetam (Keppra) 250 mg QHS GT 02/22/18 21:00 03/23/18 20:59 03/04/18 21:55 Levetiracetam (Keppra) 500 mg DAILY GT 02/23/18 09:00 03/23/18 08:59 03/05/18 08:17 Multivitamins (Multivitamins W/ Minerals 15ml Liquid) 15 ml DAILY GT 02/23/18 09:00 03/23/18 08:59 03/05/18 08:17 Pantoprazole (Protonix) 40 mg DAILY IVP 02/23/18 09:00 03/25/18 08:59 03/05/18 08:17 Sennosides (Senokot) 2 tab QHS GT 02/22/18 21:00 03/23/18 21:16 03/03/18 20:42 Sertraline HCl (Zoloft) 25 mg Q48H GT 02/25/18 09:00 03/27/18 08:59 03/05/18 08:17 Vancomycin HCl (Vanco rx to dose) 1 ea DAILY PRN MISC Per rx protocol 02/24/18 11:00 03/26/18 10:59 Vancomycin/Sodium Chloride 250 ml @ 166.667 mls/hr Q36H IVPB 03/04/18 22:00 03/09/18 21:59 03/04/18 21:54 Warfarin Sodium (Coumadin per pharmacy) 1 ea DAILY PRN MISC Per rx protocol 02/23/18 09:00 03/23/18 19:14 Warfarin Sodium (Coumadin) 3 mg COUMADIN ONCE ORAL 03/05/18 17:00 03/05/18 17:01 Lewis Galvez MD Mar 05, 2018 13:28
[2018-03-05] MEDS ORDERED: Warfarin Sodium 3mg ORAL ONE (17:00)
--- NOTE | 2018-03-05 19:07 | Cardiology Progress Note ---
Assessment/Plan Status: stable Assessment/Plan BLAIRE to evaluate prosthetic valve endocarditis Continue current management Stable otherwise Subjective Cardiovascular: Reports: no symptoms Respiratory: Reports: wheezing Gastrointestinal/Abdominal: Reports: no symptoms Genitourinary: Reports: no symptoms Subjective no acute events, awaiting BLAIRE Objective Last 24 Hour Vital Signs Date Time Temp Pulse Resp B/P (MAP) Pulse Ox O2 Delivery O2 Flow Rate FiO2 03/05/18 17:49 98.2 75 20 117/58 100 Nasal Cannula 2.0 98.2 03/05/18 16:00 64 03/05/18 16:00 98.8 95 20 98/52 100 Nasal Cannula 2.0 98.8 03/05/18 12:00 98.1 69 20 95/53 98 Nasal Cannula 2.0 98.1 03/05/18 12:00 98.1 72 20 101/57 100 Nasal Cannula 2.0 98.1 03/05/18 12:00 64 03/05/18 08:47 Nasal Cannula 2.0 28 03/05/18 08:45 76 20 Nasal Cannula 2.0 28 03/05/18 08:00 72 03/05/18 08:00 97.7 68 20 107/50 100 Nasal Cannula 2.0 97.7 03/05/18 07:46 98 Nasal Cannula 2.0 28 03/05/18 04:00 71 03/05/18 04:00 98.2 68 20 111/45 95 Nasal Cannula 2.0 98.2 03/05/18 00:00 62 03/05/18 00:00 97.5 67 20 105/57 98 Nasal Cannula 2.0 97.5 03/04/18 20:00 74 03/04/18 20:00 98.0 61 16 134/70 99 Nasal Cannula 2.0 98.0 03/04/18 19:30 96 Nasal Cannula 2.0 28 03/04/18 19:30 Nasal Cannula 2.0 28 03/04/18 19:30 64 18 Nasal Cannula 2.0 28 General Appearance: no apparent distress EENT: PERRL/EOMI Neck: normal alignment Rhythm: NSR Cardiovascular: normal peripheral pulses Respiratory/Chest: chest wall non-tender Abdomen: normal bowel sounds Extremities: normal range of motion Neurologic: tools and parts attendant II-XII grossly normal Intake and Output 03/04/18 03/05/18 19:00 07:00 # Voids 1 2 Laboratory Tests Test 03/05/18 08:05 Prothrombin Time 30.7 SEC (9.30-11.50) H Prothromb Time International Ratio 2.9 (0.9-1.1) H Singh Chakraborty M.D. Mar 05, 2018 19:07
[2018-03-05] MEDS: Dyna-Hex 2% Top Sol 2oz TOPIC SCH (20:00)
[2018-03-05] MEDS: Sennosides 8.6mg GT SCH (20:33)
[2018-03-05] MEDS: Atorvastatin 20mg tab GT SCH (20:34)
--- NOTE | 2018-03-05 21:44 | General Progress Note ---
Assessment/Plan Assessment/Plan chf sepsis staph influenza b fevers afib artificial valve diuresis on nc pulmonary eval appreciated pulmonary hygiene on abx per ID duration noted per discussion with cardiology family refused BLAIRE dw cardiololgy pulmonary ID may dc to snf after piccline placement RN aware Subjective Allergies: Coded Allergies: No Known Allergies (Unverified , 02/20/18) Subjective awake alert more comortable no cp Objective Last 24 Hour Vital Signs Date Time Temp Pulse Resp B/P (MAP) Pulse Ox O2 Delivery O2 Flow Rate FiO2 03/05/18 20:00 99.1 66 14 120/53 96 Nasal Cannula 2.0 99.1 03/05/18 19:30 98 Nasal Cannula 2.0 28 03/05/18 19:30 66 18 Nasal Cannula 2.0 28 03/05/18 19:30 Nasal Cannula 2.0 28 03/05/18 17:49 98.2 75 20 117/58 100 Nasal Cannula 2.0 98.2 03/05/18 16:00 64 03/05/18 16:00 98.8 95 20 98/52 100 Nasal Cannula 2.0 98.8 03/05/18 12:00 98.1 69 20 95/53 98 Nasal Cannula 2.0 98.1 03/05/18 12:00 98.1 72 20 101/57 100 Nasal Cannula 2.0 98.1 03/05/18 12:00 64 03/05/18 08:47 Nasal Cannula 2.0 28 03/05/18 08:45 76 20 Nasal Cannula 2.0 28 03/05/18 08:00 72 03/05/18 08:00 97.7 68 20 107/50 100 Nasal Cannula 2.0 97.7 03/05/18 07:46 98 Nasal Cannula 2.0 28 03/05/18 04:00 71 03/05/18 04:00 98.2 68 20 111/45 95 Nasal Cannula 2.0 98.2 03/05/18 00:00 62 03/05/18 00:00 97.5 67 20 105/57 98 Nasal Cannula 2.0 97.5 Intake and Output 03/04/18 03/05/18 19:00 07:00 # Voids 1 2 Laboratory Tests 03/05/18 08:05: Prothrombin Time 30.7H, Prothromb Time International Ratio 2.9H Height (Feet): 5 Height (Inches): 4.00 Weight (Pounds): 143 General Appearance: WD/WN Neck: supple Cardiovascular: irregularly irregular Respiratory/Chest: lungs clear Abdomen: soft Objective pos gtube s contracted hemiparesis Darrion Obrien MD Mar 05, 2018 21:44
[2018-03-06 04:00] VITALS: BP 140/47
[2018-03-06 07:34] LABS: INR 2.6 (0.9-1.1)
[2018-03-06 08:00] VITALS: BP 120/42
[2018-03-06] MEDS: Multivitamins W/Minerals 15 ML UDC GT SCH (09:00)
--- NOTE | 2018-03-06 09:11 | Pulmonology Progress Note ---
Assessment/Plan Problems: (1) CHF (congestive heart failure) (2) Influenza B (3) Bronchospasm (4) Pulmonary edema (5) Fever (6) UTI (urinary tract infection) (7) Staphylococcus aureus bacteremia Assessment & Plan: Assumed to be 2/2 PVE, unable to do BLAIRE, awaiting PICC (8) Gastrostomy tube in place (9) CVA (cerebral vascular accident) Assessment/Plan -Optimize pulmonary hygiene/mobilize as tolerated -Titrate down FiO2 to keep SaO2 > 90% -PRN HHN's -IV Vanco per ID, will hold off BLAIRE given frailty and treat as PVE -Monitor volumes and renal function -Diuresis as able -F/U cards recs -TF's as tolerated -Continue A/C -DNAR/DNI, BiPAP ok Subjective Allergies: Coded Allergies: No Known Allergies (Unverified , 02/20/18) Subjective Events reviewed, AFVSS, stable O2 needs No cough, no SOB, no F/C Objective Last 24 Hour Vital Signs Date Time Temp Pulse Resp B/P (MAP) Pulse Ox O2 Delivery O2 Flow Rate FiO2 03/06/18 07:46 61 18 Nasal Cannula 2.0 28 03/06/18 07:46 Nasal Cannula 2.0 28 03/06/18 07:46 98 Nasal Cannula 2.0 28 03/06/18 04:00 61 03/06/18 04:00 98.2 63 20 140/47 100 Nasal Cannula 2.0 98.2 03/06/18 00:00 59 03/05/18 23:47 97.6 64 20 142/52 99 Nasal Cannula 2.0 97.6 03/05/18 20:00 66 03/05/18 20:00 99.1 66 14 120/53 96 Nasal Cannula 2.0 99.1 03/05/18 19:30 98 Nasal Cannula 2.0 28 03/05/18 19:30 66 18 Nasal Cannula 2.0 28 03/05/18 19:30 Nasal Cannula 2.0 28 03/05/18 17:49 98.2 75 20 117/58 100 Nasal Cannula 2.0 98.2 03/05/18 16:00 64 03/05/18 16:00 98.8 95 20 98/52 100 Nasal Cannula 2.0 98.8 03/05/18 12:00 98.1 69 20 95/53 98 Nasal Cannula 2.0 98.1 03/05/18 12:00 98.1 72 20 101/57 100 Nasal Cannula 2.0 98.1 03/05/18 12:00 64 Intake and Output 03/05/18 03/06/18 19:00 07:00 # Voids 2 2 General Appearance: no acute distress, cachetic HEENT: normocephalic, atraumatic, anicteric, mucous membranes moist Respiratory/Chest: chest wall non-tender, lungs clear, normal breath sounds, no respiratory distress, no accessory muscle use Cardiovascular: normal peripheral pulses, normal rate, regular rhythm Abdomen: normal bowel sounds, soft, non tender, no organomegaly, non distended Extremities: no cyanosis, no clubbing, no edema Laboratory Tests 03/06/18 06:45: Prothrombin Time 27.0H, Prothromb Time International Ratio 2.6H Current Medications Medications (Trade) Dose Ordered Sig/Lanie Route PRN Reason Start Time Stop Time Status Last Admin Dose Admin Albuterol/ Ipratropium (Albuterol/ Ipratropium) 3 ml Q4H PRN HHN Shortness of Breath 03/02/18 14:15 03/07/18 14:14 Artificial Tears (Akwa-Tears) 1 drop Q3H PRN BOTH EYES Dry Eyes 02/22/18 21:00 03/22/18 20:59 Atorvastatin Calcium (Lipitor) 20 mg BEDTIME GT 02/22/18 21:00 03/23/18 20:59 03/05/18 20:34 Bisacodyl (Dulcolax) 10 mg DAILYPRN PRN RECTAL Constipation 02/22/18 21:00 03/24/18 20:59 Chlorhexidine Gluconate (Luz-Hex 2%) 1 applic DAILY@2000 TOPIC 03/02/18 20:00 04/01/18 19:59 03/02/18 21:01 Docusate Sodium (Colace) 100 mg DAILY GT 03/02/18 10:45 04/01/18 10:44 03/05/18 08:18 Furosemide (Lasix) 20 mg Q12HR IV 02/22/18 21:00 03/22/18 20:59 03/05/18 20:35 Guaifenesin (Robitussin) 300 mg Q4H PRN GT For Cough 02/22/18 21:00 03/22/18 20:59 Lactobacillus Acidophilus (Culturelle) 1 tab BID GT 02/23/18 09:00 03/23/18 08:59 03/05/18 17:18 Levetiracetam (Keppra) 250 mg QHS GT 02/22/18 21:00 03/23/18 20:59 03/05/18 20:34 Levetiracetam (Keppra) 500 mg DAILY GT 02/23/18 09:00 03/23/18 08:59 03/05/18 08:17 Multivitamins (Multivitamins W/ Minerals 15ml Liquid) 15 ml DAILY GT 02/23/18 09:00 03/23/18 08:59 03/05/18 08:17 Pantoprazole (Protonix) 40 mg DAILY IVP 02/23/18 09:00 03/25/18 08:59 03/05/18 08:17 Sennosides (Senokot) 2 tab QHS GT 02/22/18 21:00 03/23/18 21:16 03/05/18 20:33 Sertraline HCl (Zoloft) 25 mg Q48H GT 02/25/18 09:00 03/27/18 08:59 03/05/18 08:17 Vancomycin HCl (Vanco rx to dose) 1 ea DAILY PRN MISC Per rx protocol 02/24/18 11:00 03/26/18 10:59 Vancomycin/Sodium Chloride 250 ml @ 166.667 mls/hr Q36H IVPB 03/04/18 22:00 03/09/18 21:59 03/04/18 21:54 Warfarin Sodium (Coumadin per pharmacy) 1 ea DAILY PRN MISC Per rx protocol 02/23/18 09:00 03/23/18 19:14 Warfarin Sodium (Coumadin) 3 mg COUMADIN ORAL 03/06/18 17:00 03/06/18 18:00 Lewis Galvez MD Mar 06, 2018 09:11
[2018-03-06] MEDS: Pantoprazole Inj IVP SCH (09:29)
[2018-03-06] MEDS: Docusate 100mg/10ml Liq GT SCH (09:29)
[2018-03-06] MEDS: levETIRAcetam 500mg/5ml Liquid GT SCH (09:30)
[2018-03-06] MEDS: Lactobacillus-GG tablet GT SCH ×2 (09:30→17:23)
[2018-03-06] MEDS ORDERED: Lidocaine 1% Plain 30 ml INJ PRN (09:52)
[2018-03-06] MEDS ORDERED: Heparin Sod 1000 units/ml 10ml INJ PRN (09:53)
--- NOTE | 2018-03-06 10:26 | GI Progress Note ---
Assessment/Plan Problems: (1) Gastrojejunostomy tube dislodgement ICD Codes: Z43.4 - Encounter for attention to other artificial openings of digestive tract SNOMED: 942983475 (2) Protein calorie malnutrition ICD Codes: E46 - Unspecified protein-calorie malnutrition SNOMED: 474374755 (3) Anemia ICD Codes: D64.9 - Anemia, unspecified SNOMED: 423003466 Status: stable Status Narrative Discussed with Dr. Quigley. Assessment/Plan KUB d/w with radiologist >> GT is in the correct position with no backflow or leaks OB stool negative GTFs per RD GT site care daily/prn iron deficiency >> venofer monitor H&H, prn transfusions electrolyte replacement bowel regime ppi fu labs okay for DC per GI standpoint The patient was seen and examined at bedside and all new and available data was reviewed in the patients chart. I agree with the above findings, impression and plan. (Patient seen earlier today. Signature stamp does not reflect patient encounter time.). - Willian Quigley MD Subjective Subjective limited Objective Last 24 Hour Vital Signs Date Time Temp Pulse Resp B/P (MAP) Pulse Ox O2 Delivery O2 Flow Rate FiO2 03/06/18 08:00 61 03/06/18 08:00 97.3 61 18 120/42 97 Nasal Cannula 2.0 97.3 03/06/18 07:46 61 18 Nasal Cannula 2.0 28 03/06/18 07:46 Nasal Cannula 2.0 28 03/06/18 07:46 98 Nasal Cannula 2.0 28 03/06/18 04:00 61 03/06/18 04:00 98.2 63 20 140/47 100 Nasal Cannula 2.0 98.2 03/06/18 00:00 59 03/05/18 23:47 97.6 64 20 142/52 99 Nasal Cannula 2.0 97.6 03/05/18 20:00 66 03/05/18 20:00 99.1 66 14 120/53 96 Nasal Cannula 2.0 99.1 03/05/18 19:30 98 Nasal Cannula 2.0 28 03/05/18 19:30 66 18 Nasal Cannula 2.0 28 03/05/18 19:30 Nasal Cannula 2.0 28 03/05/18 17:49 98.2 75 20 117/58 100 Nasal Cannula 2.0 98.2 03/05/18 16:00 64 03/05/18 16:00 98.8 95 20 98/52 100 Nasal Cannula 2.0 98.8 03/05/18 12:00 98.1 69 20 95/53 98 Nasal Cannula 2.0 98.1 03/05/18 12:00 98.1 72 20 101/57 100 Nasal Cannula 2.0 98.1 03/05/18 12:00 64 Intake and Output 03/05/18 03/06/18 19:00 07:00 # Voids 2 2 Laboratory Tests Test 03/06/18 06:45 Prothrombin Time 27.0 SEC (9.30-11.50) H Prothromb Time International Ratio 2.6 (0.9-1.1) H Height (Feet): 5 Height (Inches): 4.00 Weight (Pounds): 131 General Appearance: WD/WN, no apparent distress, alert Cardiovascular: normal rate Respiratory/Chest: normal breath sounds, no respiratory distress Abdominal Exam: normal bowel sounds, non tender, soft, GT site - c/d/i Extremities: non-tender Hilton Goldman NP Mar 06, 2018 10:26
[2018-03-06] MEDS ORDERED: Heparin 2000 units/Ns 1000ml INJ SCH (10:45)
[2018-03-06] MEDS: Vancomycin 750mg/NS 250ml IVPB SCH (11:42)
[2018-03-06 12:00] VITALS: BP 128/58
--- NOTE | 2018-03-06 12:24 | Diagnostic Imaging Report ---
Indications: Needs long-term IV access Technique: Ultrasound confirms patent compressible left basilic vein. Total sterile technique, including sterile probe cover and sterile gel, hat, mask,, sterile gown, large sterile drape, and preparation with 2% chlorhexidine utilized. Local anesthesia with 1% lidocaine. Under real-time ultrasound guidance, puncture basilic vein using 21-gauge needle, documented and archived, passage 0.018 guidewire under direct fluoroscopy, which was used to determine appropriate catheter length, exchange for 5 Faroese peel-away sheath. 5 Faroese Bard dual-lumen power PICC cut to 43 cm. It was inserted through the peel-away sheath. Peel-away sheath and guidewire removed. Catheter fixed to the skin. Both catheter ports aspirated and flushed. Patient tolerated procedure well, without immediate complication. Digital radiograph documents satisfactory catheter tip position, at the cavoatrial junction. Total fluoroscopy time 0.5 minutes. Total dose area product 21 dGycm2 Impression: Successful placement of left arm PICC under sonographic and fluoroscopic guidance, as described above.
--- NOTE | 2018-03-06 13:14 | Infectious Diseases Prog Note ---
Assessment/Plan Assessment/Plan A 1. pneumonia treated 2. influenza B URI treated 3. staph coagulase negative bacteremia, 4. atrial fibrillation 5. hypertension 6- prosthetic mitral valve, ? infective endocarditis P 1. continue vancomycin iv, X 28 days Subjective ROS Limited/Unobtainable: Yes Allergies: Coded Allergies: No Known Allergies (Unverified , 02/20/18) Objective Vital Signs Last 24 Hour Vital Signs Date Time Temp Pulse Resp B/P (MAP) Pulse Ox O2 Delivery O2 Flow Rate FiO2 03/06/18 12:00 97.7 80 20 128/58 95 97.7 03/06/18 08:00 61 03/06/18 08:00 97.3 61 18 120/42 97 Nasal Cannula 2.0 97.3 03/06/18 07:46 61 18 Nasal Cannula 2.0 28 03/06/18 07:46 Nasal Cannula 2.0 28 03/06/18 07:46 98 Nasal Cannula 2.0 28 03/06/18 04:00 61 03/06/18 04:00 98.2 63 20 140/47 100 Nasal Cannula 2.0 98.2 03/06/18 00:00 59 03/05/18 23:47 97.6 64 20 142/52 99 Nasal Cannula 2.0 97.6 03/05/18 20:00 66 03/05/18 20:00 99.1 66 14 120/53 96 Nasal Cannula 2.0 99.1 03/05/18 19:30 98 Nasal Cannula 2.0 28 03/05/18 19:30 66 18 Nasal Cannula 2.0 28 03/05/18 19:30 Nasal Cannula 2.0 28 03/05/18 17:49 98.2 75 20 117/58 100 Nasal Cannula 2.0 98.2 03/05/18 16:00 64 03/05/18 16:00 98.8 95 20 98/52 100 Nasal Cannula 2.0 98.8 Height (Feet): 5 Height (Inches): 4.00 Weight (Pounds): 131 General Appearance: no acute distress HEENT: mucous membranes moist Respiratory/Chest: lungs clear Cardiovascular: normal rate, other - left arm PICC line Abdomen: soft, non tender, other - GT feeding Extremities: no edema Neurologic/Psychiatric: aphasia Laboratory Tests Test 03/06/18 06:45 Prothrombin Time 27.0 SEC (9.30-11.50) H Prothromb Time International Ratio 2.6 (0.9-1.1) H Current Medications Medications (Trade) Dose Ordered Sig/Lanie Route PRN Reason Start Time Stop Time Status Last Admin Dose Admin Albuterol/ Ipratropium (Albuterol/ Ipratropium) 3 ml Q4H PRN HHN Shortness of Breath 03/02/18 14:15 03/07/18 14:14 Artificial Tears (Akwa-Tears) 1 drop Q3H PRN BOTH EYES Dry Eyes 02/22/18 21:00 03/22/18 20:59 Atorvastatin Calcium (Lipitor) 20 mg BEDTIME GT 02/22/18 21:00 03/23/18 20:59 03/05/18 20:34 Bisacodyl (Dulcolax) 10 mg DAILYPRN PRN RECTAL Constipation 02/22/18 21:00 03/24/18 20:59 Chlorhexidine Gluconate (Luz-Hex 2%) 1 applic DAILY@1999 TOPIC 03/02/18 20:00 04/01/18 19:59 03/02/18 21:01 Docusate Sodium (Colace) 100 mg DAILY GT 03/02/18 10:45 04/01/18 10:44 03/06/18 09:29 Furosemide (Lasix) 20 mg Q12HR IV 02/22/18 21:00 03/22/18 20:59 03/06/18 09:29 Guaifenesin (Robitussin) 300 mg Q4H PRN GT For Cough 02/22/18 21:00 03/22/18 20:59 Heparin Sodium/ Sodium Chloride (Heparin 2000 units/Ns 1000ml premix) 2,000 unit ONCE INJ 03/06/18 10:45 03/06/18 18:00 Lactobacillus Acidophilus (Culturelle) 1 tab BID GT 02/23/18 09:00 03/23/18 08:59 03/06/18 09:30 Levetiracetam (Keppra) 250 mg QHS GT 02/22/18 21:00 03/23/18 20:59 03/05/18 20:34 Levetiracetam (Keppra) 500 mg DAILY GT 02/23/18 09:00 03/23/18 08:59 03/06/18 09:30 Lidocaine HCl (Xylocaine 1% 30ml) 30 ml ONCE PRN INJ PICC 03/06/18 09:52 03/06/18 23:59 Multivitamins (Multivitamins W/ Minerals 15ml Liquid) 15 ml DAILY GT 02/23/18 09:00 03/23/18 08:59 03/05/18 08:17 Pantoprazole (Protonix) 40 mg DAILY IVP 02/23/18 09:00 03/25/18 08:59 03/06/18 09:29 Sennosides (Senokot) 2 tab QHS GT 02/22/18 21:00 03/23/18 21:16 03/05/18 20:33 Sertraline HCl (Zoloft) 25 mg Q48H GT 02/25/18 09:00 03/27/18 08:59 03/05/18 08:17 Vancomycin HCl (Vanco rx to dose) 1 ea DAILY PRN MISC Per rx protocol 02/24/18 11:00 03/26/18 10:59 Vancomycin/Sodium Chloride 250 ml @ 166.667 mls/hr Q36H IVPB 03/04/18 22:00 03/09/18 21:59 03/06/18 11:42 Warfarin Sodium (Coumadin per pharmacy) 1 ea DAILY PRN MISC Per rx protocol 02/23/18 09:00 03/23/18 19:14 Warfarin Sodium (Coumadin) 3 mg COUMADIN ORAL 03/06/18 17:00 03/06/18 18:00 Torey Ramirez MD Mar 06, 2018 13:14
--- NOTE | 2018-03-06 14:32 | Cardiac Electrophysiology PN ---
Assessment/Plan Assessment/Plan 1. CHF due to diastolic dysfunction. Ejection fraction is within normal level. Continue Lasix. 2. Paroxysmal atrial fibrillation, on Coumadin. Remained in SR on tele. 3. NSVT 13 beats. Nl EF no RI. No syncope. No further after hypokalemia corrected. 4. Severe hypokalemia Potassium was replaced 5. Dysphagia, status post PEG 6. Chronic obstructive pulmonary disease, on vancomycin 7. Advanced dementia. 8. Coag neg staph sepsis r/o Endocarditis. 9. S/P Prosthetic Mitral Valve replacement. Family refused BLAIRE, treat as endocarditis with 6 weeks of iv abx per Dr. Torey Ramirez. KATHY RN Subjective Subjective Comfortable in NAD. In SR. Family refused BLAIRE Objective Last 24 Hour Vital Signs Date Time Temp Pulse Resp B/P (MAP) Pulse Ox O2 Delivery O2 Flow Rate FiO2 03/06/18 12:00 77 03/06/18 12:00 97.7 80 20 128/58 95 97.7 03/06/18 08:00 61 03/06/18 08:00 97.3 61 18 120/42 97 Nasal Cannula 2.0 97.3 03/06/18 07:46 61 18 Nasal Cannula 2.0 28 03/06/18 07:46 Nasal Cannula 2.0 28 03/06/18 07:46 98 Nasal Cannula 2.0 28 03/06/18 04:00 61 03/06/18 04:00 98.2 63 20 140/47 100 Nasal Cannula 2.0 98.2 03/06/18 00:00 59 03/05/18 23:47 97.6 64 20 142/52 99 Nasal Cannula 2.0 97.6 03/05/18 20:00 66 03/05/18 20:00 99.1 66 14 120/53 96 Nasal Cannula 2.0 99.1 03/05/18 19:30 98 Nasal Cannula 2.0 28 03/05/18 19:30 66 18 Nasal Cannula 2.0 28 03/05/18 19:30 Nasal Cannula 2.0 28 03/05/18 17:49 98.2 75 20 117/58 100 Nasal Cannula 2.0 98.2 03/05/18 16:00 64 03/05/18 16:00 98.8 95 20 98/52 100 Nasal Cannula 2.0 98.8 Intake and Output 03/05/18 03/06/18 19:00 07:00 # Voids 2 2 Laboratory Tests Test 03/06/18 06:45 Prothrombin Time 27.0 SEC (9.30-11.50) H Prothromb Time International Ratio 2.6 (0.9-1.1) H Objective HEAD AND NECK: No JVD. LUNGS: Coarse rhonchi. CARDIOVASCULAR: Regular S1 and S2 . 2/6 murmur. ABDOMEN: G-tube EXTREMITIES: 1+ pitting edema. Arslan Fowler MD Mar 06, 2018 14:32
[2018-03-06 16:00] VITALS: BP 113/55
[2018-03-06] MEDS ORDERED: Warfarin Sodium 3mg ORAL SCH (17:00)
[2018-03-06] MEDS ORDERED: VANCOCIN250 MG IV (18:12)
--- NOTE | 2018-03-07 12:29 | Discharge Summary ---
Discharge Summary Hospital Course Date of Admission February 20, 2018 at 18:03 Date of Discharge Mar 06, 2018 at 19:48 Admitting Diagnosis CHF exacerbation EMILI Villalobos is a 82 year old female who was admitted on February 20, 2018 at 18:03 for Congestive Heart Failure Exacerbation Hospital Course dc summary #[id number] Discharge Medications Continued Medications: Bisacodyl (Dulcolax) 10 Mg Supp.rect 10 MG RC PRN for Constipation, SUPP (This prescription has been renewed) Dextran 70/Hypromellose (Artificial Tears Eye Drops*) 15 Ml Drops 1 DROP BOTH EYES Q3HR PRN for Dry Eyes, #15 ML 0 Refills (This prescription has been renewed) Docusate Sodium* (Docusate Sodium*) 100 Mg Capsule 100 MG GT DAILY for bowel management, CAP (This prescription has been renewed) Guaifenesin* (Guaifenesin) 100 Mg/5 Ml Liquid 15 ML GT Q4HR PRN for For Cough, #120 ML 0 Refills (This prescription has been renewed) Hydrocodone Bit/Acetaminophen 5-325* ([place] 5-325*) 1 Each Tablet 1 TAB GT Q6H PRN for For Pain, TAB 0 Refills (This prescription has been renewed ) Lactobacillus Rhamnosus Gg* (Culturelle*) 1 Each Capsule 1 CAP GT BID, CAP (This prescription has been renewed) Levetiracetam* (Levetiracetam*) 100 Mg/1 Ml Solution 500 MG GT every morning for seizure (This prescription has been renewed) Levetiracetam* (Levetiracetam*) 100 Mg/1 Ml Solution 250 MG GT QHS for seizure (This prescription has been renewed) Multivitamin With Minerals (Multivitamins With Minerals*) 1 Each Tablet 1 TAB GT DAILY for supplement, TAB (This prescription has been renewed) Omeprazole (Omeprazole) 40 Mg Capsule.dr 40 MG GT DAILY, CAP (This prescription has been renewed) Rosuvastatin Calcium* (Crestor*) 10 Mg Tablet 10 MG GT DAILY, TAB (This prescription has been renewed) Sennosides (Senna) 8.6 Mg Tablet 17.2 MG GT QHS for bowel management, TAB (This prescription has been renewed) Sertraline Hcl* (Sertraline Hcl*) 25 Mg Tablet 12.5 MG GT DAILY, TAB (This prescription has been renewed) Vancomycin HCl (Vancocin HCl) 250 Mg Capsule 750 MG IV Q36H for 28 Days, BAG (This prescription has been renewed) Warfarin Sod* (Coumadin*) 1 Mg Tablet 4.5 MG GT DAILY, TAB (This prescription has been renewed) Discharge Condition Upon Discharge: stable Discharge Disposition Patient was discharged to [facility] (04) Discharge Instructions Discharge Instructions Special Instructions I have been assigned to complete a D/C Summary on this account. I was not involved in the patient management Ivis Roy NP Mar 07, 2018 12:29
--- NOTE | 2018-03-08 02:15 | Discharge Summary 2 SIG ---
DATE OF ADMISSION: 02/20/2018 DATE OF DISCHARGE: 03/06/2018 REASON FOR ADMISSION: 82-year-old female with past medical history significant for hypertension, CHF, COPD, coronary artery disease, dementia, GERD, and seizure disorder, was sent from the care home facility for evaluation due to shortness of breath. Nursing taff noted congestion and wheezing. The patient by herself was unable to provide any information. The patient was tachycardic with heart rate 113 and febrile. The patient required supplemental oxygen via simple mask and later placement on the BiPAP. Troponin was negative. Pro BNP - 5049. No leukocytosis. Stable hemoglobin and hematocrit. Urinalysis with no evidence of UTI. EKG revealed sinus tachycardia. No acute ischemic changes. Chest x-ray showed diffuse patchy opacities. Sodium - 129. Influenza screen test was positive for influenza type B. The patient was admitted for congestive heart failure exacerbation, hyponatremia, influenza B, bronchospasm, upper respiratory infection. CONSULTANTS: 1. Concrete Laborer, Arslan Fowler M.D. 2. Infectious disease doctor, Torey Ramirez M.D. 3. Gastrointestinal specialist, Willian Quigley M.D. 4. Dry Plasterer, Lewis Galvez M.D. HOSPITAL COURSE: The patient was admitted to monitored bed. The patient was continued on the BiPAP. Pulmonary toilet provided. BiPAP settings titrated. Dry Plasterer closely followed. The patient was started on Tamiflu and antibiotics as per ID recommendations. The patient was followed up with chest x-ray. Venous duplex of bilateral lower extremities revealed no evidence of acute DVT. Initial chest x-ray in the emergency department revealed evidence of congestive heart failure. The patient started on diuresis with close monitoring of cardiorenal parameters and volumes under cardiac recommendations. Echocardiogram revealed ejection fraction of 40% to 45%, right ventricular systolic pressure of 48 consistent with mild pulmonary hypertension. It also revealed evidence of prosthetic mitral valve. Concrete Laborer closely followed. The patient had CHF due to diastolic dysfunction. Diuretic was continued with close monitoring of cardiorenal parameters and volumes. Coumadin was resumed with pharmacy dosing to keep INR in therapeutic window. INR therapeutic at 2.6 on the day of discharge. No signs of bleeding. The patient remained in sinus rhythm on telemetry. The patient had evidence of short run of nonsustained ventricular tachycardia. Per chief substation operator, normal ejection fraction, no syncope, no evidence of PA. Short run of nonsustained ventricular tachycardia was possibly due to hypokalemia, No further episodes after potassium was replaced. Blood culture on 02/20/2018 revealed Staph epidermidis. Repeated blood culture on 02/23/2018 were negative. Echocardiogram revealed no evidence of vegetation. The patient status post treatment for influenza type B with Tamiflu and for pneumonia. However, the patient had bacteremia. In lieu of the prosthetic mitral valve, infective endocarditis had to be ruled out. Family declined transesophageal echocardiogram to be done. The patient will be treated for presumptive endocarditis with antibiotics as per ID recommendations. Strict aspiration precautions maintained. GI specialist consulted for possible G tube dislodgement. KUB confirmed G-tube was in the correct position. No back flow. No leaks. G-tube site care provided. Tube feeding restarted as per dietary recommendations. The patient was able to tolerate tube feeding. Nutritional recommendation instituted in plan of care. Anemia workup revealed evidence of iron deficiency anemia. The patient was on Venofer. Stool for occult blood negative. Hemoglobin and hematocrit were closely monitored with goal to keep hemoglobin above 7. Hemoglobin and hematocrit remained on the baseline. No need for transfusion. Bowel regimen instituted. The patient was on PPI. As patient clinically improved, she was able to be weaned from BiPAP to supplemental oxygen to keep pulse oximetry above 92%. Patient was clinically stabilized. All consultants cleared patient for discharge. The patient DNR/DNI status. The patient was stable for discharge back to care home facility. FINAL DIAGNOSES: 1. Coagulase-negative Staphylococcus epidermidis sepsis. 2. Possible endocarditis. 3. Pneumonia, status post treatment. 4. Influenza B, status post treatment. 5. Upper respiratory infection. 6. Congestive heart failure secondary to diastolic dysfunction. 7. Hypertension. 8. Paroxysmal atrial fibrillation. 9. Nonsustained ventricular tachycardia. 10. Electrolyte imbalance: hyponatremia, hypokalemia 11. Dysphagia, gastrostomy tube. 12. Chronic obstructive pulmonary disease. 13. Advanced dementia. 14. History of prosthetic valve replacement. 15. Protein-calorie malnutrition. 16. Anemia of iron deficiency. DISCHARGE MEDICATIONS: See medication reconciliation list. DISCHARGE INSTRUCTIONS: The patient discharged to care home facility. Follow up with medical doctor at the facility. Continue antibiotic for duration of treatment as specified by Infectious Disease specialist. Darrion Obrien M.D. I have been assigned to dictate discharge summary on this account and I was not involved in the patient's management. Ivis Roy (Vanchtein) N.PChyna DR: Nato JOB#: [id number] CC: [email or web address]
== END 2018-03-06 19:48 | DRG 871 ==
LOC: EDBD 15:44 → EDBEDREQSVC 16:26 → EMR 18:00 → 2W 18:03 → EDBEDREQ 19:01 → 2W 23:31 → 2E 02-22 20:19
PROC: 5A09457 Assistance with Respiratory Ventilation, 24-96 Consecutive Hours, Continuous Positive Airway Pressure (ICD-10-PCS; principal; 2018-02-20)
DX: A41.1 Sepsis due to other specified staphylococcus (principal); J10.00 Influenza due to other identified influenza virus with unspecified type of pneumonia; I50.33 Acute on chronic diastolic (congestive) heart failure; E46 Unspecified protein-calorie malnutrition; E87.1 Hypo-osmolality and hyponatremia; I69.354 Hemiplegia and hemiparesis following cerebral infarction affecting left non-dominant side; I47.2 Ventricular tachycardia; I38 Endocarditis, valve unspecified; N39.0 Urinary tract infection, site not specified; E87.6 Hypokalemia; Z66 Do not resuscitate; I69.391 Dysphagia following cerebral infarction; R13.10 Dysphagia, unspecified; Z93.1 Gastrostomy status; Z95.2 Presence of prosthetic heart valve; K21.9 Gastro-esophageal reflux disease without esophagitis; F03.90 Unspecified dementia, unspecified severity, without behavioral disturbance, psychotic disturbance, mood disturbance, and anxiety; G40.909 Epilepsy, unspecified, not intractable, without status epilepticus; J44.9 Chronic obstructive pulmonary disease, unspecified; D50.9 Iron deficiency anemia, unspecified; I48.0 Paroxysmal atrial fibrillation; Z53.29 Procedure and treatment not carried out because of patient's decision for other reasons; I27.20 Pulmonary hypertension, unspecified; I10 Essential (primary) hypertension; I25.10 Atherosclerotic heart disease of native coronary artery without angina pectoris; I25.2 Old myocardial infarction; E78.5 Hyperlipidemia, unspecified; Z68.22 Body mass index [BMI] 22.0-22.9, adult; Z79.01 Long term (current) use of anticoagulants
CPT/HCPCS: 36415; 36569; 36600; 71045; 74018; 76937; 80048; 80053; 80202; 81003; 82270; 82378; 82565; 82607; 82728; 82746; 82803; 83540; 83550; 83735; 83880; 84439; 84443; 84484; 84520; 85007; 85025; 85044; 85610; 85730; 86710; 87040; 87081; 87181; 93005; 93306; 93970; 94640; 94660; 94664; 94760; 99285; J7620; J8499